=== PATIENT | female | born 1945 | race Caucasian/White ===

== ENCOUNTER 2017-01-23 19:43 | Inpatient (IN) | payer MEDICARE, OTHER ==
[~2017-01-23] VITALS: Ht 167.6 cm; Wt 49.6 kg
[2017-01-23] MEDS: ADVAIR DISKUS 500/50 INH PWD INH SCH (00:17)
[~2017-01-23 19:43] MED LIST: ADV500INH INH; ALBU17IN INH; ATELTAB PO; AVEL1TAB PO; CALC600T10 PO; CALCIUM CITRATE PO; CHOL4PKT PO; CYAN1000VL IM; DETR4CAP10; DETR4CAP10 PO; DRIS50002 PO; DUONSOL INH; FEMH0.5T PO; FORT600S SC; IPRASOL4 INH; LEVO500T PO; MEDR4PAK PO; MULTTAB4; PROA1AER; PROA1AER INH; QUES4POW PO; VITA-130 PO; VITA10006 PO; VITACAP31 PO; VITAMIN B12 INJ; VITMTA PO; ZINC50TA22 PO; ZOLP12.515; ZOLP12.515 PO; [UNRECOGNIZED DRUG - CODE]; [UNRECOGNIZED DRUG - CODE] PO
[2017-01-23] MEDS ORDERED: IPRATROPIUM 0.5MG/ALBUTEROL 2.5MG INH SOL UD 3ML (DUONEB)(J7620) As Ordered ONE (20:00)
[2017-01-23] MEDS ORDERED: MAG SULF 1GM/100ML (MAG RUN) 1 GM in APPROPRIATE DILUENT 1 EA IV ONE (20:15)
[2017-01-23 20:22] LABS: BASO % 0.4 % (0.0-1.0); EOS # 0.2 K/mm3 (0.0-0.50); EOS % 1.5 % (0.0-3.0); LARGE UNSTAINED CELL # 0.2 K/mm3 (0.0-0.4); LYMPH # 0.8 K/mm3 (1.5-4.5); MEAN CORPUSCULAR HEMOGLOBIN 32.1 pg (27.0-33.0); MEAN CORPUSCULAR HGB CONC 32.9 g/dl (32.0-36.5); MEAN CORPUSCULAR VOLUME 97.7 fl (80.0-96.0); MONO # 0.4 K/mm3 (0.0-0.8); MONO % 3.9 % (0.0-5.0); NEUTROPHILS % 87.2 % (36.0-66.0); PLATELET COUNT, AUTOMATED 151 k/mm3 (150-450); RED CELL DISTRIBUTION WIDTH 11.8 % (11.5-14.5); WHITE BLOOD COUNT 11.4 K/mm3 (4.0-10.0)
[2017-01-23 20:23] LABS: ABG BASE EXCESS 6.3 (-2.0-2.0); ABG HCO3 33.5 MEQ/L (22.0-26.0); ABG PARTIAL PRESSURE CO2 59.5 mmHg (35.0-45.0); ABG PARTIAL PRESSURE O2 70.7 mmHg (75.0-100.0); ABG STANDARD HCO3 30.1 MEQ/L (22.0-26.0); ABG TOTAL CO2 35.4 MEQ/L (23.0-31.0); ABG pH (ARTERIAL) 7.369 UNITS (7.350-7.450)
[2017-01-23] MEDS: IPRATROPIUM 0.5MG/ALBUTEROL 2.5MG INH SOL UD 3ML (DUONEB)(J7620) NEB PRN ×3 (20:33→20:44)
[2017-01-23] MEDS ORDERED: LevoFLOXacin IV 750 MG in APPROPRIATE DILUENT 1 EA IV ONE (20:45)
[2017-01-23 20:47] LABS: ANION GAP 5 MEQ/L (8-16); BLOOD UREA NITROGEN 12 MG/DL (7-18); CALCIUM LEVEL 8.6 MG/DL (8.8-10.2); CARBON DIOXIDE LEVEL 34 MEQ/L (21-32); CHLORIDE LEVEL 97 MEQ/L (98-107); CREATININE FOR GFR 0.65 MG/DL (0.55-1.02); GLOMERULAR FILTRATION RATE > 60.0 (>39); GLUCOSE, FASTING 130 MG/DL (83-110); POTASSIUM SERUM 3.6 MEQ/L (3.5-5.1); SODIUM LEVEL 136 MEQ/L (136-145)
[2017-01-23] MEDS ORDERED: TYLE325T5 PO (21:53)
[2017-01-23] MEDS ORDERED: ONDANSETRON 4MG/2ML VIAL (J2405) IV PRN (22:00)
[2017-01-23] MEDS ORDERED: ALBUTEROL SULFATE 2.5 MG/0.5 ML INH NEB SOLN INH PRN (22:00)
--- NOTE | 2017-01-23 23:06 | HPE ---
DATE OF ADMISSION: 01/23/2017 CHIEF COMPLAINT: Shortness of breath. PRIMARY CARE PHYSICIAN: Dr. Keagan Ramos. SHOTBLAST EQUIPMENT OPERATOR: Dr. Patel COMPUTER FIELD TECHNICIAN: Dr. Peter Neal ENTRY LEVEL SALES REPRESENTATIVE: Dr. Volodymyr Rodriguez HISTORY OF PRESENT ILLNESS: This is a 71-year-old who was recently admitted to [facility] from January 07 to January 11. She was discharged on a steroid taper that apparently ended around January 17. Since January 17, she has had increasing shortness of breath. She felt as though she could not catch her breath. She had dyspnea with exertion. She could only walk 20-25 feet without getting short of breath and having to stop. Has not had any sputum production. Has had no sick contacts. Has had her flu shot. Has been taking her controller medications as prescribed. She describes no orthopnea, no paroxysmal nocturnal dyspnea, no fever, no chills. She did followup with Dr. Keagan Ramos on January 18 and is due to see Dr. Patel this Saturday, on January 25. She presented to the emergency department tonight in extremis. Refused treatment with steroids. Was given heliox with nebulizer treatments, empiric antibiotics, and magnesium with improvement and has consented to admission. PAST MEDICAL HISTORY: Notable for: 1. Takotsubo cardiomyopathy September 2013 with a cardiac catheterization by Dr. Rodriguez. 2. Chronic obstructive pulmonary disease (COPD). 3. Crohn's disease status post surgical resection. 4. Osteoporosis. 5. Nephrolithiasis. 6. Chronic left lower lobe pulmonary nodule and right upper lobe pulmonary nodule. PAST SURGICAL HISTORY: Notable for: 1. Bowel resection times two. 2. Kidney stone extraction. 3. Coronary angiogram. SOCIAL HISTORY: She quit smoking in 2013. Does not use alcohol. 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 Lives in [place]. REVIEW OF SYSTEMS: Notable for no headache, no visual changes, no runny nose or sore throat. No abdominal pain. No change in bowel or bladder habits. Otherwise unremarkable. MEDICATIONS AT HOME: Listed as: - Tylenol as needed - Advair twice daily - DuoNeb four times daily - albuterol as needed - vitamin B12 injection - vitamin D supplement weekly - Ambien 12.5 mg at bedtime - Atelvia 35 mg as directed - calcium supplement - vitamin C supplement - Questran 4 gram before food - Femhrt low dose 0.5/2.5 mg one tablet daily - multivitamin tablet daily - Advair 500/50 inhaled twice a day - Detrol-LA 4 mg by mouth daily ALLERGIES: She has listed allergies to CODEINE, HYDROCODONE, OMEPRAZOLE, PENICILLINS, a listed allergy to PREDNISONE, which is a desire not to take prednisone, and SULFA antibiotics. PHYSICAL EXAMINATION: Temperature 97.4, pulse most recently is 102 with a blood pressure of 139/72. She is awake, appropriately interactive, pleasantly conversant and engaging. Sinuses are nontender. Pupils are equal, round, and reactive. Anicteric. Mucous membranes are moist. She is wearing dentures. Neck is supple. No cervical or supraclavicular adenopathy. No accessory muscle use. She is speaking in complete sentences. Inspiratory to expiratory (I-to-E) ratio is 1:5. Heart is in a regular rate and rhythm, borderline tachycardic. Radial pulses are 1+ on the right, 2+ on the left. Abdomen is soft, nontender. There is trace bilateral lower extremity edema. She is moving all four extremities. Facies are symmetrical. Cranial nerves II-XII are grossly intact. White cell count 11.4, hemoglobin 13.9, platelets of 151. BUN 12, creatinine 0.65. BNP is 129. Blood gas: 7.36, 59, 70, 33. EKG shows sinus tachycardia with frequent supraventricular premature complexes. ASSESSMENT: This is a 71-year-old with acute hypoxic, hypercapnic respiratory failure. Patient will require 2-midnight hospital stay. PLAN: 1. Respiratory. Patient has increasing hypoxia and hypoxic respiratory failure. Is getting supplemental oxygen. Has taken nebulizers. Has refused steroids quite strongly. Has received Levaquin one dose. She is not currently making sputum. Will be placed on progressive care unit (PCU). We have discussed advance directives. The patient is vacillating about the level of care she would like to receive. She is quite specific about steroids but also suggests that she may refuse antibiotics and ventilator should that become available. We did discuss a medical order for life-sustaining treatment (MOLST) form, and I have given her one to review, although she seems not to be set in her current decisions regarding advance directives. 2. Patient has a history of Takotsubo cardiomyopathy. She did have an echocardiogram done during her last visit, which shows normal right-sided heart chambers, left ventricular diastolic dysfunction, and a small pericardial effusion. 3. Patient has history of Crohn's disease without acute symptoms. Continuing Questran as ordered. 4. Patient has protein calorie malnutrition, most likely related to a combination of her Crohn's disease and advanced pulmonary illness. 5. Deep vein thrombosis (DVT) prophylaxis is in the form of low-dose Lovenox based on her body mass index. 6. Patient has history of B12 deficiency. 7. Patient has vitamin D deficiency. 8. Patient has history of insomnia. I am certainly not giving her Ambien while she has respiratory compromise. 9. Patient has overactive bladder, continuing her Detrol. 10. Patient will be sent out to Dr. Cassidy in the morning.
[2017-01-24 03:55] VITALS: BP 125/58
[2017-01-24] MEDS: CHOLESTYRAMINE 4 GM PWD PKT PO SCH ×3 (07:30→17:30)
[2017-01-24 08:00] VITALS: BP 112/55
[2017-01-24] MEDS: IPRATROPIUM 0.5MG/ALBUTEROL 2.5MG INH SOL UD 3ML (DUONEB)(J7620) NEB SCH ×4 (08:00→19:41)
[2017-01-24] MEDS: ADVAIR DISKUS 500/50 INH PWD INH SCH ×2 (08:19→19:46)
[2017-01-24] MEDS: ASCORBIC ACID 500 MG TAB PO SCH (09:00)
[2017-01-24] MEDS: TOLTERODINE TARTRATE 2 MG LA CAP (DETROL LA) PO SCH (09:00)
[2017-01-24] MEDS: ENOXAPARIN 30 MG/0.3 ML SYR (J1650) SC SCH (09:00)
--- NOTE | 2017-01-24 09:01 | REP ---
CHEST, PORTABLE: Single portable view of the chest is performed and compared to a prior study of 01/07/2017. Once again, there is cardiomegaly noted. Bilateral fibrotic changes appear stable with no acute infiltrate. Mediastinal silhouette is unchanged with mild calcification of the thoracic aorta. IMPRESSION: Mild cardiomegaly. Stable chronic fibrotic changes without evidence of acute infiltrate. Signed by Johnny Garcia MD 01/24/2017 04:47 P
--- NOTE | 2017-01-24 09:26 | ECGEPIP ---
Stationary ECG Study [facility] - ED Test Date: 2017-01-23 Pat Name: KENA URBINA Department: Room: [place] [address] Gender: F Board Finisher: melanie : 1945 Requested By: WOLFGANG Mccurdy Order Number: [id number] Reading MD: Lavonne Parra Measurements Intervals [place] Rate: 120 P: 76 WA: 145 QRS: 82 QRSD: 89 T: 69 QT: 326 QTc: 462 Interpretive Statements SINUS TACHYCARDIA WITH FREQUENT SUPRAVENTRICULAR PREMATURE COMPLEXES POSSIBLE RIGHT VENTRICULAR CONDUCTION DELAY ABNORMAL RHYTHM ECG INCREASED RATE 01/08/17 Electronically Signed On 01-24-2017 9:26:10 EDT by Lavonne Parra
[2017-01-24] MEDS: BUDESONIDE 0.5 MG/2 ML INHALATION SUSPENSION INH SCH ×3 (11:05→23:38)
[2017-01-24 12:00] VITALS: BP 109/54
[2017-01-24] MEDS: AZITHROMYCIN 250 MG TAB PO SCH (12:37)
[2017-01-24] MEDS: MULTIVITAMINS/MINERALS THERAP 1 TAB PO SCH (12:37)
[2017-01-24 16:00] VITALS: BP 113/56
[2017-01-24] MEDS: ACETAMINOPHEN TAB 650MG DOSE (2X325MG) PO PRN (19:48)
[2017-01-24 20:00] VITALS: BP 120/56
--- NOTE | 2017-01-24 20:26 | IPN ---
DATE: 01/24/2017 A 71-year-old female seen at bedside. Noted less shortness of breath, wheeze, nonproductive cough and dyspnea on exertion. However, she has refused Solu-Medrol and has been noncompliant with the oxygen supplementation through the morning hours according to the nurse. OBJECTIVE: Temperature is 98.4, pulse 97, respiratory is 20, blood pressure 112/55, SPO2 is 95% on two liters. GENERAL: The patient appears to be in no acute distress. She is slightly agitated. HEENT: Unremarkable. LUNGS: Diminished bibasilar breath sounds, diminished breath sounds throughout the remainder of the lung alfred with expiratory wheeze noted and prolonged expiratory phase. She is able to speak in four or five word sentences. However, sternocleidomastoid retraction and retraction noted between the first couple of upper rib spaces. HEART: Regular rate and rhythm. ABDOMEN: Soft. EXTREMITIES: No edema. No calf tenderness. LABORATORY DATA: She has refused to have drawn this morning. ASSESSMENT AND PLAN: 1. Acute hypoxic respiratory failure. Noted to have what appears to be advanced chronic obstructive pulmonary disease (COPD) and difficult to control. I did have a lengthy discussion with her as well as with her manager bilingual. She is resistant to Solu-Medrol/prednisone at this point. I did consult Dr. James who will see her at bedside and a tentative plan for now would be to try dual inhaled steroid therapy with Advair and budesonide nebulizer treatments. Continue with DuoNebs as well. We will hold on prednisone for the time being as a reserve. We may need to fall back to this and she is aware. She has refused antibiotics for the time being. 2. History of takotsubo cardiomyopathy. No signs of volume overload. 3. History of Crohn's disease. No acute symptoms. Continue Questran. 4. Protein-calorie malnutrition. Likely cachexia related to lung disease and underlying Crohn's. 5. History of B12 deficiency. We will continue supplementation. 6. Vitamin D deficiency. Continue supplementation. 7. History of insomnia. We are holding the Ambien due to risk of respiratory compromise. 8. History of overactive bladder. Continue on Detrol. 9. Deep vein thrombosis (DVT) prophylaxis with low-dose Lovenox based on her body mass index. DISPOSITION: Appreciate Dr. James's input to see how we could modify her treatment. She may likely need long-term steroids and we will need to see if she is qualified for home oxygen.
[2017-01-24 20:55] VITALS: BP 114/58
[2017-01-25 06:00] VITALS: BP 100/50
[2017-01-25] MEDS: ADVAIR DISKUS 500/50 INH PWD INH SCH ×2 (07:13→19:18)
[2017-01-25] MEDS: BUDESONIDE 0.5 MG/2 ML INHALATION SUSPENSION INH SCH ×2 (07:13→19:16)
[2017-01-25 07:15] LABS: ANION GAP 7 MEQ/L (8-16); BLOOD UREA NITROGEN 9 MG/DL (7-18); CALCIUM LEVEL 8.2 MG/DL (8.8-10.2); CARBON DIOXIDE LEVEL 33 MEQ/L (21-32); CHLORIDE LEVEL 98 MEQ/L (98-107); CREATININE FOR GFR 0.61 MG/DL (0.55-1.02); GLOMERULAR FILTRATION RATE > 60.0 (>39); GLUCOSE, FASTING 91 MG/DL (83-110); POTASSIUM SERUM 3.9 MEQ/L (3.5-5.1); SODIUM LEVEL 138 MEQ/L (136-145)
[2017-01-25] MEDS: IPRATROPIUM 0.5MG/ALBUTEROL 2.5MG INH SOL UD 3ML (DUONEB)(J7620) NEB SCH ×4 (07:16→19:18)
[2017-01-25 07:26] LABS: MEAN CORPUSCULAR HEMOGLOBIN 32.9 pg (27.0-33.0); MEAN CORPUSCULAR HGB CONC 33.7 g/dl (32.0-36.5); MEAN CORPUSCULAR VOLUME 97.7 fl (80.0-96.0); RED CELL DISTRIBUTION WIDTH 11.7 % (11.5-14.5); WHITE BLOOD COUNT 6.5 K/mm3 (4.0-10.0)
[2017-01-25] MEDS: MULTIVITAMINS/MINERALS THERAP 1 TAB PO SCH (07:54)
[2017-01-25] MEDS: AZITHROMYCIN 250 MG TAB PO SCH (07:54)
[2017-01-25] MEDS: TOLTERODINE TARTRATE 2 MG LA CAP (DETROL LA) PO SCH (07:54)
[2017-01-25] MEDS: ACETAMINOPHEN TAB 650MG DOSE (2X325MG) PO PRN (07:54)
[2017-01-25] MEDS: CHOLESTYRAMINE 4 GM PWD PKT PO SCH ×3 (07:54→17:27)
[2017-01-25] MEDS: ASCORBIC ACID 500 MG TAB PO SCH (07:54)
[2017-01-25] MEDS: ENOXAPARIN 30 MG/0.3 ML SYR (J1650) SC SCH (07:57)
[2017-01-25 10:55] VITALS: BP 114/61
[2017-01-25 14:00] VITALS: BP 104/56
--- NOTE | 2017-01-25 14:35 | IPN ---
DATE: 01/25/2017 A 71-year-old female seen at bedside. No overnight issues. She is resting comfortably. We are going to titrate her oxygen. OBJECTIVE: Temperature 99.8, pulse 84, respiratory rate is 20, blood pressure 100/50, SpO2 is 93% on 2 liters. GENERAL: The patient appears to be in no acute distress. Is alert and oriented. HEENT: Head is atraumatic, normocephalic. Eyes: Pupils equal, reactive to light and accommodation. Throat clear. LUNGS: Diminished bibasilar breath sounds, occasional wheeze but sounds much better than yesterday. HEART: Regular rate and rhythm. ABDOMEN: Soft. EXTREMITIES: No edema. No calf tenderness. LABORATORY DATA: White count is 6.5, hemoglobin 12.1, platelets 142,000. Sodium 138, potassium 3.9, chloride 98, bicarbonate 33, anion gap 7, BUN is 9, creatinine 0.61, glucose is 91. ASSESSMENT/PLAN: 1. Acute hypoxic respiratory failure. Appreciate Dr. James's input. She has refused Solu-Medrol as well as antibiotics. Will continue on the Advair and budesonide nebulizer treatments. There is a possibility she may need to be considered for low dose daily prednisone as well as home oxygen supplementation. At any rate, we will see how she does on day-to-day basis. 2. History of Takotsubo cardiomyopathy. No signs of volume overload. 3. History of Crohn's disease. She does appear to be stable. She does have some loose stool. Clostridium (C) difficile is pending. Blood cultures were negative. She may use the Questran. 4. Protein calorie malnutrition. Likely secondary to underlying Crohn's. 5. B12 deficiency. Continue supplementation. 6. Vitamin D deficiency. Continue supplementation. 7. History of insomnia. We are holding her Ambien due to risk of respiratory compromise. 8. Overactive bladder. Continue with Detrol. 9. Deep venous thrombosis (DVT) prophylaxis. Low-dose Lovenox based on low body mass index. DISPOSITION: Again, appreciate Dr. James's recommendations. We will see how she does over the next 24-48 hours and start planning home discharge.
[2017-01-25 22:00] VITALS: BP 122/57
[2017-01-26] MEDS: ACETAMINOPHEN TAB 650MG DOSE (2X325MG) PO PRN ×3 (02:59→22:40)
[2017-01-26 06:00] VITALS: BP 109/52
[2017-01-26] MEDS: CHOLESTYRAMINE 4 GM PWD PKT PO SCH ×3 (07:30→17:03)
[2017-01-26] MEDS: ADVAIR DISKUS 500/50 INH PWD INH SCH ×2 (07:43→19:29)
[2017-01-26] MEDS: BUDESONIDE 0.5 MG/2 ML INHALATION SUSPENSION INH SCH ×2 (07:43→19:29)
[2017-01-26] MEDS: IPRATROPIUM 0.5MG/ALBUTEROL 2.5MG INH SOL UD 3ML (DUONEB)(J7620) NEB SCH ×4 (07:45→19:29)
[2017-01-26] MEDS: ENOXAPARIN 30 MG/0.3 ML SYR (J1650) SC SCH (08:41)
[2017-01-26] MEDS: ASCORBIC ACID 500 MG TAB PO SCH (08:42)
[2017-01-26] MEDS: TOLTERODINE TARTRATE 2 MG LA CAP (DETROL LA) PO SCH (08:42)
[2017-01-26] MEDS: MULTIVITAMINS/MINERALS THERAP 1 TAB PO SCH (08:42)
[2017-01-26] MEDS: AZITHROMYCIN 250 MG TAB PO SCH (08:42)
[2017-01-26] MEDS: FEMHRT PO SCH (10:02)
[2017-01-26] MEDS: LACTOBACILLUS ACIDOPHILUS CAP (BACID) PO SCH ×3 (10:47→20:19)
[2017-01-26 13:41] LABS: MEAN CORPUSCULAR HEMOGLOBIN 32.1 pg (27.0-33.0); MEAN CORPUSCULAR HGB CONC 32.7 g/dl (32.0-36.5); MEAN CORPUSCULAR VOLUME 98.1 fl (80.0-96.0); RED CELL DISTRIBUTION WIDTH 11.7 % (11.5-14.5); WHITE BLOOD COUNT 6.2 K/mm3 (4.0-10.0)
[2017-01-26 13:54] LABS: ANION GAP 7 MEQ/L (8-16); BLOOD UREA NITROGEN 10 MG/DL (7-18); CALCIUM LEVEL 7.8 MG/DL (8.8-10.2); CARBON DIOXIDE LEVEL 33 MEQ/L (21-32); CHLORIDE LEVEL 98 MEQ/L (98-107); CREATININE FOR GFR 0.61 MG/DL (0.55-1.02); GLOMERULAR FILTRATION RATE > 60.0 (>39); GLUCOSE, FASTING 116 MG/DL (83-110); MAGNESIUM LEVEL 2.1 MG/DL (1.8-2.4); POTASSIUM SERUM 3.7 MEQ/L (3.5-5.1); SODIUM LEVEL 138 MEQ/L (136-145)
[2017-01-26 14:00] VITALS: BP 136/63
--- NOTE | 2017-01-26 15:09 | REP ---
Chest two views history cough comparison 01/23/2017 the lungs are hyperinflated. Diffuse increase in interstitial markings is present in the lungs consistent with chronic interstitial fibrosis. The cardiac silhouette is enlarged. The pulmonary vasculature is normal in appearance. The bony structure is intact. Impression 1. Chronic interstitial fibrosis. Mild cardiomegaly. Signed by Supa Figueroa MD 01/26/2017 10:51 A
--- NOTE | 2017-01-26 15:09 | IPN ---
DATE: 01/26/2017 71-year-old female. She does feel that her breathing is a little worse today with more chest congestion. However, she is able to tolerate 1 liter per minute nasal cannula. No fevers, chills or rigors noted overnight. She is tolerating her meals. No nausea or vomiting. OBJECTIVE: Temperature is 98.7, pulse 91 and regular, respiratory rate is 20, blood pressure (BP) 109/52, SPO2 is 91% on 1 liter. General: The patient appears to be in no acute distress. She is alert, pleasant. HEENT: Unremarkable. Lungs: Diminished bibasilar breath sounds, distant. Wheeze with a few crackles. She continues with an increased AP diameter and prolonged expiratory phase. Heart: Regular rate and rhythm. Abdomen: Soft. Extremities: No edema. No calf tenderness. LABORATORY DATA: White count 6.5, hemoglobin 12.1, platelets 142. Sodium 138, potassium 3.9, chloride 98, bicarb 33, anion gap 7, BUN is 9, creatinine 0.61, glucose is 91. Chest x-ray PA and lateral views with no acute cardiopulmonary processes noted and I do not see any major change compared to her chest x-ray on 01/23/2017. ASSESSMENT/PLAN: 1. Old acute hypoxic respiratory failure. Appreciate Dr. James's input. She has refused Solu-Medrol and antibiotics. She has continued on dual steroid inhaler with Advair and budesonide nebulizer treatments. We have been able to slightly decrease her oxygen requirement and will see how she does over the next 24 hours. Her chest x-ray is unchanged to account for her symptomatology. I do suspect that this is most likely related to her end-stage lung disease. 2. History of Takotsubo cardiomyopathy. No signs of volume overload. 3. History of Crohn's disease with loose stool. No blood in her stool. Clostridium difficile screen is negative. Will increase her Questran to three times a day and start her on Bacid 1 tablet three times a day as well. Blood cultures remain negative. 4. Protein calorie malnutrition likely secondary to poor absorption of Crohn's. 5. B12 deficiency. Continue supplementation. 6. Vitamin D deficiency. Continue supplementation. 7. History of insomnia. Holding her Ambien due to respiratory compromise risk. 8. Overactive bladder. Continue with Detrol 9. Deep vein thrombosis (DVT) prophylaxis. Continue with low-dose Lovenox based on body mass index. DISPOSITION: Again, appreciate Dr. James's input. Will see how she does over the next 24-48 hours and perhaps get her discharged by Saturday. She may need home oxygen and close followup with pulmonology.
[2017-01-26] MEDS ORDERED: IBUPROFEN 400 MG TAB PO PRN (15:15)
[2017-01-26] MEDS ORDERED: CHOLESTYRAMINE 4 GM PWD PKT PO SCH (16:00)
[2017-01-26 22:00] VITALS: BP 131/59
[2017-01-27 06:00] VITALS: BP 119/57
[2017-01-27 06:02] LABS: MEAN CORPUSCULAR HEMOGLOBIN 31.6 pg (27.0-33.0); MEAN CORPUSCULAR HGB CONC 32.4 g/dl (32.0-36.5); MEAN CORPUSCULAR VOLUME 97.5 fl (80.0-96.0); RED CELL DISTRIBUTION WIDTH 11.9 % (11.5-14.5); WHITE BLOOD COUNT 5.8 K/mm3 (4.0-10.0)
[2017-01-27 06:21] LABS: ANION GAP 6 MEQ/L (8-16); BLOOD UREA NITROGEN 11 MG/DL (7-18); CALCIUM LEVEL 8.3 MG/DL (8.8-10.2); CARBON DIOXIDE LEVEL 32 MEQ/L (21-32); CHLORIDE LEVEL 100 MEQ/L (98-107); CREATININE FOR GFR 0.49 MG/DL (0.55-1.02); GLOMERULAR FILTRATION RATE > 60.0 (>39); GLUCOSE, FASTING 92 MG/DL (83-110); MAGNESIUM LEVEL 1.9 MG/DL (1.8-2.4); POTASSIUM SERUM 3.9 MEQ/L (3.5-5.1); SODIUM LEVEL 138 MEQ/L (136-145)
[2017-01-27] MEDS: ACETAMINOPHEN TAB 650MG DOSE (2X325MG) PO PRN ×2 (06:22→21:26)
[2017-01-27] MEDS: BUDESONIDE 0.5 MG/2 ML INHALATION SUSPENSION INH SCH ×2 (07:28→20:02)
[2017-01-27] MEDS: IPRATROPIUM 0.5MG/ALBUTEROL 2.5MG INH SOL UD 3ML (DUONEB)(J7620) NEB SCH ×5 (07:28→20:02)
[2017-01-27] MEDS: CHOLESTYRAMINE 4 GM PWD PKT PO SCH ×3 (07:30→16:30)
[2017-01-27] MEDS: LACTOBACILLUS ACIDOPHILUS CAP (BACID) PO SCH ×3 (08:33→21:26)
[2017-01-27] MEDS: TOLTERODINE TARTRATE 2 MG LA CAP (DETROL LA) PO SCH (08:33)
[2017-01-27] MEDS: AZITHROMYCIN 250 MG TAB PO SCH (08:33)
[2017-01-27] MEDS: MULTIVITAMINS/MINERALS THERAP 1 TAB PO SCH (08:33)
[2017-01-27] MEDS: ENOXAPARIN 30 MG/0.3 ML SYR (J1650) SC SCH (08:34)
[2017-01-27] MEDS: ASCORBIC ACID 500 MG TAB PO SCH (08:34)
[2017-01-27] MEDS: FEMHRT PO SCH (08:34)
[2017-01-27] MEDS: ADVAIR DISKUS 500/50 INH PWD INH SCH ×2 (11:56→20:02)
--- NOTE | 2017-01-27 13:40 | IPNPDOC ---
Date Seen The patient was seen on 01/27/17. Progress Note Hospitalist Progress Note Subjective: The patient reports that she can tell a definite improvement from when she arrived, she states that she still does not feel well. She reports a lot of fatigue, as well as feeling overall poorly when she gets fevers and chills. She reports that her diarrhea has improved since arrival, and does not have any blood in it. Objective: Physical Exam: Vitals: Vital Sign - Last 24 Hours 01/26/17 01/26/17 01/26/17 01/26/17 14:00 19:20 21:00 22:00 Temp 102.5 98.9 Pulse 115 100 Resp 18 20 B/P (MAP) 136/63 (87) 131/59 (83) Pulse Ox 92 92 O2 Delivery Nasal Cannula Nasal Cannula Nasal Cannula Nasal Cannula O2 Flow Rate 1.0 1.0 1.0 1.0 01/26/17 01/27/17 01/27/17 01/27/17 22:30 00:00 00:34 02:00 Temp 101.5 100.3 100.0 98.5 01/27/17 01/27/17 01/27/17 01/27/17 02:31 06:00 07:33 09:40 Temp 99.8 100.8 Pulse 108 100 Resp 20 B/P (MAP) 119/57 (77) Pulse Ox 90 O2 Delivery Nasal Cannula Nasal Cannula O2 Flow Rate 2.0 1.0 General: Awake, alert, no acute distress HEENT: Normocephalic, atraumatic, extraocular movements intact CV: Regular rate and rhythm, no murmurs rubs or gallops Lungs: Mostly clear to auscultation with mild scattered crackle Abd: Soft, nontender, nondistended Extremities: No edema Neuro: Alert and oriented 3, normal speech Psych: And normal mood and affect Labs and Imaging: Laboratory Tests 01/27/17 05:36 Red Blood Count 3.73 L, Mean Corpuscular Volume 97.5 H, Mean Corpuscular Hemoglobin 31.6, Mean Corpuscular Hemoglobin Concent 32.4, Red Cell Distribution Width 11.9, Calcium Level 8.3 L Assessment and Plan: 71-year-old female with history of Takotsubo cardiomyopathy in 2013, COPD, Crohn 's disease status post resection, chronic left lower lobe nodule and chronic right upper lobe nodule who presented to the emergency department with shortness of breath. She was admitted with a COPD exacerbation, but has declined systemic steroid treatment. Her respiratory status has been improving on dual nebulized steroids, that she has had several fevers, particularly 3 in the last 24 hours. 1. COPD exacerbation: The patient's oxygen requirements have currently decreased to 1 L. The patient does not use any oxygen at home. We will continue home Advair, as well as scheduled DuoNeb's as needed albuterol. We will also continue Pulmicort nebs, and she will likely need to be discharged home on this. Continue oral azithromycin. As noted above, the patient has declined systemic steroid therapy. Given her compromised respiratory status, we have been holding her home Ambien. We appreciate the input of pulmonology. 2. Fever: There is no clear etiology at this point. White count was mildly elevated upon admission, but has been normal for several days now. Prior chest x -rays have not revealed any pneumonia, and a respiratory virus panel, C. difficile, and blood cultures were negative upon admission. UA from yesterday shows likely contamination, as there is 1+ bacteria and 9 WBCs, but no leuk esterase and no nitrite. We will recheck blood and urine cultures, as well as recheck a chest x-ray. Given that the patient reports that her diarrhea has improved and is not bloody, I doubt that this is secondary to any issues with her Crohn's. At this time, we will hold off on any antibiotics, as we do not have a clear source, and as the patient states that she has terrible rebound exacerbations of her Crohn's whenever she is on heavy antibiotics. The patient states that if we feel antibiotics are truly warranted, she will not decline them, but she would like to be cautious about their use. If a clear source of the fevers is identified, or if the patient continues to have fevers, then we will start antibiotics at that time. I have placed an order for the nursing staff to call the physician with any fevers greater than or equal to 100.4. 3. Crohn's disease: Per the patient, the diarrhea is starting to firm up, and she is not having any blood. Continue Bacid and cholestyramine. 4. Protein calorie malnutrition: Likely secondary to both poor absorption from her Crohn's disease, as well as advanced pulmonary illness. Stable at this time. DVT prophylaxis: Lovenox Dispo: pending resolution in her fevers, and workup for fevers, as well as being able to get off oxygen VS, I&O[facility] Sign[facility]/I&O Vital Signs Date Time Temp Pulse Resp B/P (MAP) Pulse Ox O2 Delivery O2 Flow Rate FiO2 01/27/17 09:40 Nasal Cannula 1.0 01/27/17 07:33 100 01/27/17 06:00 100.8 20 119/57 (77) 90 01/23/17 20:05 50 I&O- Last 24 Hours up to 6 AM 01/27/17 06:00 Intake Total 2100 ml Output Total 1450 ml Balance 650 ml Laboratory Data 24H LABS Laboratory Tests 2 01/26/17 22:27: Urine Appearance HAZY, Urine Color YELLOW, Urine pH 5.0, Urine Specific [place] 1.013, Urine Protein NEGATIVE, Urine Glucose (UA) NEGATIVE, Urine Ketones NEGATIVE, Urine Urobilinogen 0.2, Urine Bilirubin NEGATIVE, Urine Leukocyte Esterase NEGATIVE, Urine Blood NEGATIVE, Urine Nitrite NEGATIVE, Urine WBC (Auto ) 9H, Urine RBC (Auto) 22H, Urine Hyaline Casts (Auto) 0, Urine Bacteria (Auto) 1+H, Urine Squamous Epithelial Cells 4, Urine Amorphous Sediment SMALLH, Urine Mucus (Auto) SMALL, Urine Sperm (Auto) 01/27/17 05:36: Anion Gap 6L, Glomerular Filtration Rate > 60.0, Blood Urea Nitrogen 11, Creatinine 0.49L, Sodium Level 138, Potassium Level 3.9, Chloride Level 100, Carbon Dioxide Level 32, Calcium Level 8.3L, Magnesium Level 1.9 01/27/17 13:32: CBC/BMP Laboratory Tests 01/27/17 05:36 Red Blood Count 3.73 L, Mean Corpuscular Volume 97.5 H, Mean Corpuscular Hemoglobin 31.6, Mean Corpuscular Hemoglobin Concent 32.4, Red Cell Distribution Width 11.9, Calcium Level 8.3 L Microbiology Microbiology 01/27/17 Blood Culture, Received Pending 01/27/17 Blood Culture, Received Pending 01/23/17 Blood Culture - Preliminary, Resulted No Growth after 72 hours. All specime... 01/23/17 Blood Culture - Preliminary, Resulted No Growth after 72 hours. All specime... 01/25/17 Clostridium difficile (PCR) - Final, Complete 01/23/17 Respiratory Virus Panel (PCR) ([facility]) - Final, Complete 01/27/17 Urine Culture, Received Pending ALISON AUSTIN Jan 27, 2017 13:40
[2017-01-27] MEDS: NYSTATIN 500,000 U/5 ML SUSP UDC SS SCH ×3 (13:53→21:26)
[2017-01-27 14:00] VITALS: BP 122/58
[2017-01-27 20:00] VITALS: BP 147/60
[2017-01-27 22:00] VITALS: BP 147/65
[2017-01-28 02:00] VITALS: BP 104/51
--- NOTE | 2017-01-28 05:43 | REP ---
CHEST, TWO VIEWS: HISTORY: Fever. COMPARISON: 01/26/2017. The lungs are hyperinflated. A diffuse increase in interstitial markings is present in the lungs consistent with chronic interstitial fibrosis. Bullae are present in the upper lobes. The cardiac silhouette is enlarged. The pulmonary vasculature is normal in appearance. The bony structure is intact. IMPRESSION: 1. Chronic interstitial fibrosis. 2. Cardiomegaly. Signed by Supa Figueroa MD 01/28/2017 08:15 A
[2017-01-28 06:00] VITALS: BP 119/57
[2017-01-28] MEDS: IPRATROPIUM 0.5MG/ALBUTEROL 2.5MG INH SOL UD 3ML (DUONEB)(J7620) NEB SCH ×4 (07:03→20:00)
[2017-01-28] MEDS: BUDESONIDE 0.5 MG/2 ML INHALATION SUSPENSION INH SCH ×2 (07:03→20:01)
[2017-01-28] MEDS: ADVAIR DISKUS 500/50 INH PWD INH SCH ×2 (07:03→20:02)
[2017-01-28] MEDS: ENOXAPARIN 30 MG/0.3 ML SYR (J1650) SC SCH (07:50)
[2017-01-28] MEDS: CHOLESTYRAMINE 4 GM PWD PKT PO SCH ×3 (07:51→16:33)
[2017-01-28] MEDS: LACTOBACILLUS ACIDOPHILUS CAP (BACID) PO SCH ×3 (08:02→20:43)
[2017-01-28] MEDS: TOLTERODINE TARTRATE 2 MG LA CAP (DETROL LA) PO SCH (08:02)
[2017-01-28] MEDS: ASCORBIC ACID 500 MG TAB PO SCH (08:03)
[2017-01-28] MEDS: MULTIVITAMINS/MINERALS THERAP 1 TAB PO SCH (08:03)
[2017-01-28] MEDS: AZITHROMYCIN 250 MG TAB PO SCH (08:03)
[2017-01-28] MEDS: NYSTATIN 500,000 U/5 ML SUSP UDC SS SCH ×5 (08:04→20:43)
[2017-01-28] MEDS: FEMHRT PO SCH (08:04)
[2017-01-28 08:21] LABS: MEAN CORPUSCULAR HEMOGLOBIN 31.1 pg (27.0-33.0); MEAN CORPUSCULAR HGB CONC 32.2 g/dl (32.0-36.5); MEAN CORPUSCULAR VOLUME 96.8 fl (80.0-96.0); RED CELL DISTRIBUTION WIDTH 11.9 % (11.5-14.5); WHITE BLOOD COUNT 6.2 K/mm3 (4.0-10.0)
[2017-01-28 08:38] LABS: ALBUMIN 2.4 GM/DL (3.2-5.2); ALKALINE PHOSPHATASE 50 U/L (45-117); ALT/SGPT 19 U/L (12-78); ANION GAP 5 MEQ/L (8-16); AST/SGOT 16 U/L (15-37); BILIRUBIN,TOTAL 0.5 MG/DL (0.2-1.0); BLOOD UREA NITROGEN 11 MG/DL (7-18); CALCIUM LEVEL 8.3 MG/DL (8.8-10.2); CARBON DIOXIDE LEVEL 32 MEQ/L (21-32); CHLORIDE LEVEL 100 MEQ/L (98-107); CREATININE FOR GFR 0.55 MG/DL (0.55-1.02); GLOMERULAR FILTRATION RATE > 60.0 (>39); GLUCOSE, FASTING 101 MG/DL (83-110); MAGNESIUM LEVEL 1.9 MG/DL (1.8-2.4); SODIUM LEVEL 137 MEQ/L (136-145); TOTAL PROTEIN 6.4 GM/DL (6.4-8.2)
--- NOTE | 2017-01-28 13:21 | IPNPDOC ---
Date Seen The patient was seen on 01/28/17. Progress Note Hospitalist Progress Note Subjective: The patient states she overall does not feel well; she is very tired and has no appetite. Objective: Physical Exam: Vitals: Vital Sign - Last 24 Hours 01/27/17 01/27/17 01/27/17 01/27/17 14:00 16:00 20:00 20:04 Temp 99.7 102.7 Pulse 100 100 118 Resp 20 18 B/P (MAP) 122/58 (79) 147/60 (89) Pulse Ox 93 90 O2 Delivery Nasal Cannula Nasal Cannula Nasal Cannula O2 Flow Rate 2.0 2.0 1.0 01/27/17 01/27/17 01/27/17 01/28/17 20:30 22:00 23:18 02:00 Temp 101.0 102.3 98.9 Pulse 118 93 Resp 20 24 B/P (MAP) 147/65 (92) 104/51 (68) Pulse Ox 90 93 O2 Delivery Nasal Cannula Nasal Cannula Nasal Cannula O2 Flow Rate 1.0 1.0 1.0 01/28/17 01/28/17 01/28/17 06:00 06:35 10:23 Temp 100.1 Pulse 106 Resp 38 B/P (MAP) 119/57 (77) Pulse Ox 88 O2 Delivery Nasal Cannula Nasal Cannula O2 Flow Rate 2.0 2.0 2.0 General: Awake, alert, no acute distress HEENT: Normocephalic, atraumatic, extraocular movements intact CV: Regular rate and rhythm Lungs: Mostly clear to auscultation with mild scattered crackle Abd: Soft, nontender, nondistended Extremities: No edema Neuro: Alert and oriented 3, normal speech Psych: normal mood and affect Labs and Imaging: Laboratory Tests 01/28/17 07:54 Red Blood Count 3.84 L, Mean Corpuscular Volume 96.8 H, Mean Corpuscular Hemoglobin 31.1, Mean Corpuscular Hemoglobin Concent 32.2, Red Cell Distribution Width 11.9, Calcium Level 8.3 L, Aspartate Amino Transf (AST/SGOT) 16, Alanine Aminotransferase (ALT/SGPT) 19, Alkaline Phosphatase 50, Total Bilirubin 0.5, Total Protein 6.4, Albumin 2.4 L Assessment and Plan: 71-year-old female with history of Takotsubo cardiomyopathy in 2013, COPD, Crohn 's disease status post resection, chronic left lower lobe nodule and chronic right upper lobe nodule who presented to the emergency department with shortness of breath. She was admitted with a COPD exacerbation, but has declined systemic steroid treatment. Her respiratory status has been improving on dual nebulized steroids, but she has had several fevers with no clear source. 1. COPD exacerbation: The patient's oxygen requirements have currently decreased to 1 L. The patient does not use any oxygen at home. We will continue home Advair, as well as scheduled DuoNeb's as needed albuterol. We will also continue Pulmicort nebs, and she will likely need to be discharged home on this. Stop oral azithromycin. As noted above, the patient has declined systemic steroid therapy. Given her compromised respiratory status, we have been holding her home Ambien. We appreciate the input of pulmonology. 2. Fever: There is no clear etiology at this point. White count was mildly elevated upon admission, but has been normal for several days now. Prior chest x -rays have not revealed any pneumonia, and a respiratory virus panel, C. difficile, and blood cultures were negative upon admission. UA shows likely contamination, and Ucx is negative. Repeat blood cultures are negative at 24H, and LFTs are WNL. Given that the patient reports that her diarrhea has improved and is not bloody, I doubt that this is secondary to any issues with her Crohn's , although, we will check a GI panel and FOBT. At this time, we will hold off on any antibiotics, as we do not have a clear source, ,as she is clinically non- toxic appearing, and as the patient states that she has terrible rebound exacerbations of her Crohn's whenever she is on heavy antibiotics. The patient states that if we feel antibiotics are truly warranted, she will not decline them, but she would like to be cautious about their use. If a clear source of the fevers is identified, then we will start antibiotics at that time. We will check an echo to assess any evidence of valvular vegetation. Another possibility is that this is related to the azithromycin she has been on, so we will stop that at that time. I have discussed these possibilities with Dr. James, and he thinks a drug fever from nhithro may be quite likely. 3. Crohn's disease: Per the patient, the diarrhea is starting to firm up, and she is not having any blood. Continue Bacid and cholestyramine. 4. Protein calorie malnutrition: Likely secondary to both poor absorption from her Crohn's disease, as well as advanced pulmonary illness. Stable at this time. DVT prophylaxis: Lovenox Dispo: pending resolution in her fevers, and workup for fevers, as well as being able to get off oxygen VS, I&O, 24H, Fishbone Vital Signs/I&O Vital Signs Date Time Temp Pulse Resp B/P (MAP) Pulse Ox O2 Delivery O2 Flow Rate FiO2 01/28/17 10:23 Nasal Cannula 2.0 01/28/17 06:00 100.1 106 38 119/57 (77) 88 01/23/17 20:05 50 I&O- Last 24 Hours up to 6 AM 01/28/17 06:00 Intake Total 840 ml Output Total 1475 ml Balance -635 ml Laboratory Data 24H LABS Laboratory Tests 2 01/27/17 13:32: Urine Appearance HAZY, Urine Color YELLOW, Urine pH 5.0, Urine Specific [place] 1.015, Urine Protein NEGATIVE, Urine Glucose (UA) NEGATIVE, Urine Ketones NEGATIVE, Urine Urobilinogen 0.2, Urine Bilirubin NEGATIVE, Urine Leukocyte Esterase NEGATIVE, Urine Blood NEGATIVE, Urine Nitrite NEGATIVE, Urine WBC (Auto ) 2, Urine RBC (Auto) 2, Urine Hyaline Casts (Auto) 0, Urine Bacteria (Auto) 1+H , Urine Squamous Epithelial Cells 3, Urine Mucus (Auto) SMALL, Urine Sperm (Auto ) 01/28/17 07:54: Erythrocyte Sedimentation Rate 71H, Anion Gap 5L, Glomerular Filtration Rate > 60.0, Blood Urea Nitrogen 11, Creatinine 0.55, Sodium Level 137, Potassium Level 4.0, Chloride Level 100, Carbon Dioxide Level 32, Calcium Level 8.3L, Aspartate Amino Transf (AST/SGOT) 16, Alanine Aminotransferase (ALT/SGPT) 19, Alkaline Phosphatase 50, Total Bilirubin 0.5, Total Protein 6.4, Albumin 2.4L, Magnesium Level 1.9, C-Reactive Protein, Quantitative 14.50H, Albumin/Globulin Ratio 0.60L CBC/BMP Laboratory Tests 01/28/17 07:54 Red Blood Count 3.84 L, Mean Corpuscular Volume 96.8 H, Mean Corpuscular Hemoglobin 31.1, Mean Corpuscular Hemoglobin Concent 32.2, Red Cell Distribution Width 11.9, Calcium Level 8.3 L, Aspartate Amino Transf (AST/SGOT) 16, Alanine Aminotransferase (ALT/SGPT) 19, Alkaline Phosphatase 50, Total Bilirubin 0.5, Total Protein 6.4, Albumin 2.4 L Microbiology Microbiology 01/27/17 Blood Culture - Preliminary, Resulted No growth after 24 hours . All specim... 01/27/17 Blood Culture - Preliminary, Resulted No growth after 24 hours . All specim... 01/23/17 Blood Culture - Preliminary, Resulted No Growth after 72 hours. All specime... 01/23/17 Blood Culture - Preliminary, Resulted No Growth after 72 hours. All specime... 01/25/17 Clostridium difficile (PCR) - Final, Complete 01/23/17 Respiratory Virus Panel (PCR) ([facility]) - Final, Complete 01/27/17 Urine Culture - Final, Complete ALISON AUSTIN January 28, 2017 13:21
[2017-01-28 15:00] VITALS: BP 127/61
[2017-01-28] MEDS: ACETAMINOPHEN TAB 650MG DOSE (2X325MG) PO PRN (15:34)
[2017-01-28 22:00] VITALS: BP 132/60
--- NOTE | 2017-01-28 22:46 | ECHO ---
DATE OF PROCEDURE: 01/28/2017 REFERRING PHYSICIAN: Veronica Weaver MD INDICATION: Fever. HEIGHT: 168 cm WEIGHT: 49.5 kg MEASUREMENTS: Left atrium: 4.0 cm Ventricular septum: 0.90 cm Posterior wall: 0.90 cm Left ventricle diastole: 4.6 cm Aortic annulus: 2.3 cm Aortic root: 3.2 cm Proximal ascending aorta: 2.7 cm Inferior vena cava: 1.5 cm DOPPLER MEASUREMENTS: Aortic valve velocity: 163 cm/s LVOT velocity: 102 cm/s LVOT VTI: 17.5 cm Mitral E velocity: 73.5 cm/s Mitral A velocity: 102 cm/s Mitral E deceleration time: 202 ms Very mild tricuspid regurgitation. Estimated right ventricle systolic pressure 27 mmHg assuming a right atrial pressure of 5 mmHg. MITRAL ANNULAR TISSUE DOPPLER: E prime septal: 5.8 cm/s DESCRIPTION: Rhythm was sinus tachycardia. This is a moderately technically difficult echocardiogram. This is a 2D, M-mode, color flow Doppler and pulse wave Doppler examination that included mitral annular tissue Doppler. CONCLUSIONS: 1. No vegetations apparent, however, this was a moderately technically difficult echocardiogram. 2. Mild aortic valve sclerosis. No aortic regurgitation. 3. Hyperdynamic LV systolic function. Left ventricular ejection fraction (LVEF) of 75% to 80% by visual estimate. 4. Moderately technically difficult echocardiogram. 5. Very small pericardial effusion. 6. Mild left atrial dilatation. 7. Mild mitral annular calcification. No mitral regurgitation.
[2017-01-29 06:00] VITALS: BP 116/58
[2017-01-29 07:17] LABS: MEAN CORPUSCULAR HEMOGLOBIN 32.1 pg (27.0-33.0); MEAN CORPUSCULAR HGB CONC 32.4 g/dl (32.0-36.5); RED CELL DISTRIBUTION WIDTH 11.9 % (11.5-14.5); WHITE BLOOD COUNT 5.1 K/mm3 (4.0-10.0)
[2017-01-29 07:38] LABS: ANION GAP 7 MEQ/L (8-16); BLOOD UREA NITROGEN 9 MG/DL (7-18); CALCIUM LEVEL 8.1 MG/DL (8.8-10.2); CARBON DIOXIDE LEVEL 28 MEQ/L (21-32); CHLORIDE LEVEL 100 MEQ/L (98-107); CREATININE FOR GFR 0.49 MG/DL (0.55-1.02); GLOMERULAR FILTRATION RATE > 60.0 (>39); GLUCOSE, FASTING 95 MG/DL (83-110); MAGNESIUM LEVEL 1.9 MG/DL (1.8-2.4); POTASSIUM SERUM 4.2 MEQ/L (3.5-5.1); SODIUM LEVEL 135 MEQ/L (136-145)
[2017-01-29] MEDS: ADVAIR DISKUS 500/50 INH PWD INH SCH ×2 (07:46→19:48)
[2017-01-29] MEDS: BUDESONIDE 0.5 MG/2 ML INHALATION SUSPENSION INH SCH ×2 (07:46→19:48)
[2017-01-29] MEDS: IPRATROPIUM 0.5MG/ALBUTEROL 2.5MG INH SOL UD 3ML (DUONEB)(J7620) NEB SCH ×4 (07:47→20:00)
[2017-01-29] MEDS: CHOLESTYRAMINE 4 GM PWD PKT PO SCH ×3 (08:03→17:17)
[2017-01-29] MEDS: LACTOBACILLUS ACIDOPHILUS CAP (BACID) PO SCH ×3 (08:03→20:11)
[2017-01-29] MEDS: NYSTATIN 500,000 U/5 ML SUSP UDC SS SCH ×4 (08:03→20:10)
[2017-01-29] MEDS: ASCORBIC ACID 500 MG TAB PO SCH (08:03)
[2017-01-29] MEDS: TOLTERODINE TARTRATE 2 MG LA CAP (DETROL LA) PO SCH (08:03)
[2017-01-29] MEDS: ENOXAPARIN 30 MG/0.3 ML SYR (J1650) SC SCH (08:04)
[2017-01-29] MEDS: FEMHRT PO SCH (08:04)
[2017-01-29] MEDS: MULTIVITAMINS/MINERALS THERAP 1 TAB PO SCH (08:04)
--- NOTE | 2017-01-29 13:29 | IPNPDOC ---
Subjective Date Seen The patient was seen on 01/29/17. Subjective Chief Complaint/HPI The patient is a 71-year-old female admitted with a reason for visit of Acute Respiratory Failure W/Hypoxia. General: Denies: ROS Unobtainable, Chills, Night Sweats, Fatigue, Malaise, Normal Appetite, Other Symptoms Constitutional: Denies: Chills, Fever, Malaise, Night Sweats, Weakness, Fatigue , Weight Loss, Lethargy, Other Eyes: Denies: Pain, Vision change, Conjunctivae inflammation, Eyelid inflammation, Redness, Other ENT: Denies: Head Aches, Ear Pain, Dysphagia, Sinus Congestion, Post Nasal Drip , Sore Throat, Epistaxis, Other Symptoms Skin: Denies: Rash, Lesions, Jaundice, Bruising, Itching, Dry, Breakdown, Nail Changes, Other Pulmonary: Denies: Dyspnea, Cough, Pleuritic Chest Pain, Other Symptoms Cardiovascular: Denies: Chest Pain, Palpitations, Orthopnea, Paroxysmal Noc. Dyspnea, Edema, Lt Headedness, Other Symptoms Gastrointestinal: Denies: Nausea, Vomiting, Abdominal Pain, Diarrhea, Constipation, Melena, Hematochezia, Other Symptoms Genitourinary: Denies: Dysuria, Frequency, Incontinence, Hematuria, Retention, Other Symptoms Hematologic: Denies: Bruising, Bleeding Excessively, Petecchia, Purpura, Enlarged Lymph Nodes, Other Hematologic Endocrine: Denies: Polydipsia, Polyphagia, Polyuria, Heat Intolerance, Cold Intolerance, Other Endocrine Sx Objective Physical Examination General Exam: Positive: Alert, Cooperative, No Acute Distress Eye Exam: Positive: PERRLA, Conjunctiva & lids normal, EOMI, Negative: Sclera icteric ENT Exam: Positive: Atraumatic, Mucous membr. moist/pink Neck Exam: Positive: Supple Chest Exam: Positive: Clear to auscultation, Normal air movement Heart Exam: Positive: Rate Normal Abdomen Exam: Positive: Normal bowel sounds, Soft, Negative: Tenderness Extremity Exam: Negative: Edema Psych Exam: Positive: Oriented x 3 Assessment /Plan Problems (1) Fever Status: Acute Discussed With: Patient Problem Specific Plan: Monitor Clinically, Repeat Labs, Repeat Tests Problem Text: unclear etiology ct abd for further eval consider id c/s if continues (2) Crohns disease Status: Chronic Discussed With: Patient Problem Specific Plan: Monitor Clinically, Repeat Tests (3) Protein calorie malnutrition Status: Chronic Discussed With: Patient Problem Specific Plan: Monitor Clinically (4) COPD (chronic obstructive pulmonary disease) Status: Chronic Discussed With: Patient Problem Specific Plan: Consult Specialist, Monitor Clinically Problem Text: art Fitch, pulmicort, albuterol prn follow as per pulm, assistance appreciated (5) Takotsubo cardiomyopathy Status: Resolved Discussed With: Patient Problem Text: 2d echocardiogram noted Plan/VTE VTE Prophylaxis Ordered?: Yes (lovenox) Plan Diet: Continue Current Activity: Continue Current Diagnostics: Repeat Labs in AM, CT VS, I&O, 24H, Fishbone Vital Signs/I&O Vital Signs Date Time Temp Pulse Resp B/P (MAP) Pulse Ox O2 Delivery O2 Flow Rate FiO2 01/29/17 06:00 98.6 117 20 116/58 (77) 97 Nasal Cannula 2.0 01/23/17 20:05 50 I&O- Last 24 Hours up to 6 AM 01/29/17 06:00 Intake Total 2460 ml Output Total 1375 ml Balance 1085 ml Laboratory Data 24H LABS Laboratory Tests 2 01/29/17 07:00: Anion Gap 7L, Glomerular Filtration Rate > 60.0, Blood Urea Nitrogen 9, Creatinine 0.49L, Sodium Level 135L, Potassium Level 4.2, Chloride Level 100, Carbon Dioxide Level 28, Calcium Level 8.1L, Magnesium Level 1.9 CBC/BMP Laboratory Tests 01/29/17 07:00 Red Blood Count 3.67 L, Mean Corpuscular Volume 99.0 H, Mean Corpuscular Hemoglobin 32.1, Mean Corpuscular Hemoglobin Concent 32.4, Red Cell Distribution Width 11.9, Calcium Level 8.1 L Microbiology Microbiology 01/27/17 Blood Culture - Preliminary, Resulted No Growth after 48 hours. All Specime... 01/27/17 Blood Culture - Preliminary, Resulted No Growth after 48 hours. All Specime... 01/23/17 Blood Culture - Final, Complete NO GROWTH AFTER 5 DAYS 01/23/17 Blood Culture - Final, Complete NO GROWTH AFTER 5 DAYS 01/28/17 Gastrointestinal Tract Panel (PCR) - Final, Complete 01/28/17 Stool Occult Blood ([facility]) - Final, Complete 01/25/17 Clostridium difficile (PCR) - Final, Complete 4/26/17 Respiratory Virus Panel (PCR) ([facility]) - Final, Complete 01/27/17 Urine Culture - Final, Complete DENITA LE MD January 29, 2017 13:29
[2017-01-29 14:00] VITALS: BP 129/60
[2017-01-29] MEDS ORDERED: ISOVUE-370 76% 100ML VIAL (Q9967) As Ordered ONE (14:02)
--- NOTE | 2017-01-29 17:34 | REP ---
CT ABDOMEN: HISTORY: Possible abscess. History of Crohn's disease. Now having pyrexia. COMPARISON: The latest prior for comparison is dated 04/22/2014. CONTRAST: 100 mL of Isovue-370 The precontrast enhanced portion of the exam shows hepatic and splenic densities to be within normal limits. There are no choleliths. There are no nephroliths. The lung bases show scattered opacities bilaterally representing a change from 01/07/2017 CT of the chest. There are no pleural or pericardial effusions. The contrast enhanced portion of the examination shows the liver, gallbladder, spleen, pancreas, and adrenal glands to be within normal limits and unchanged. Once again, there are multiple bilateral renal cysts all having the appearance of Bosniak, Class I simple cysts. No abnormal septations, mural nodules or enhancement is identifiable. The abdominal aorta and paraaortic regions are unchanged, being within normal limits. There is gaseous distention of the colon, but no evidence of abnormal bowel wall thickening or enhancement. There is no evidence of free fluid or free air. CT pelvis: Colonic distention continues into the sigmoid colon and distends the rectum. This represents a change from the prior exam. There is no free fluid or free air in the pelvis. There is no evidence of pelvic mass or adenopathy. Bone window technique throughout the exam shows spinal degenerative changes and evidence to suggest bony demineralization. Bilateral hip degenerative changes are also present. IMPRESSION: 1. There is primarily gaseous distention of the colon but with content as well representing a change from the prior exam. There is no evidence of free intraperitoneal air or intestinal obstruction. This needs to be correlated clinically with appropriate followup. Does the patient has a history of Mirna's syndrome? 2. Bilateral Bosniak, Class I renal cyst. 3. Other findings as described above. In the lung bases there is evidence to suggest basilar pneumonia. This needs to be correlated clinically with appropriate followup. Signed by Raleigh Mulligan DO 01/30/2017 11:09 A
[2017-01-29] MEDS: ACETAMINOPHEN TAB 650MG DOSE (2X325MG) PO PRN (20:11)
[2017-01-29 22:00] VITALS: BP 143/71
[2017-01-30] MEDS: ACETAMINOPHEN TAB 650MG DOSE (2X325MG) PO PRN ×2 (05:58→20:39)
[2017-01-30 06:00] VITALS: BP 112/54
[2017-01-30 07:02] LABS: MEAN CORPUSCULAR HEMOGLOBIN 32.4 pg (27.0-33.0); MEAN CORPUSCULAR HGB CONC 33.5 g/dl (32.0-36.5); MEAN CORPUSCULAR VOLUME 96.9 fl (80.0-96.0); WHITE BLOOD COUNT 5.1 K/mm3 (4.0-10.0)
[2017-01-30] MEDS: ADVAIR DISKUS 500/50 INH PWD INH SCH ×2 (07:20→23:17)
[2017-01-30] MEDS: BUDESONIDE 0.5 MG/2 ML INHALATION SUSPENSION INH SCH ×2 (07:20→20:31)
[2017-01-30] MEDS: IPRATROPIUM 0.5MG/ALBUTEROL 2.5MG INH SOL UD 3ML (DUONEB)(J7620) NEB SCH ×4 (07:20→20:31)
[2017-01-30 07:24] LABS: ANION GAP 6 MEQ/L (8-16); BLOOD UREA NITROGEN 8 MG/DL (7-18); CALCIUM LEVEL 8.7 MG/DL (8.8-10.2); CARBON DIOXIDE LEVEL 32 MEQ/L (21-32); CHLORIDE LEVEL 99 MEQ/L (98-107); CREATININE FOR GFR 0.48 MG/DL (0.55-1.02); GLOMERULAR FILTRATION RATE > 60.0 (>39); GLUCOSE, FASTING 109 MG/DL (83-110); MAGNESIUM LEVEL 2.1 MG/DL (1.8-2.4); SODIUM LEVEL 137 MEQ/L (136-145)
[2017-01-30] MEDS: LACTOBACILLUS ACIDOPHILUS CAP (BACID) PO SCH ×3 (07:59→20:39)
[2017-01-30] MEDS: NYSTATIN 500,000 U/5 ML SUSP UDC SS SCH ×4 (07:59→20:39)
[2017-01-30] MEDS: ASCORBIC ACID 500 MG TAB PO SCH (07:59)
[2017-01-30] MEDS: MULTIVITAMINS/MINERALS THERAP 1 TAB PO SCH (07:59)
[2017-01-30] MEDS: CHOLESTYRAMINE 4 GM PWD PKT PO SCH ×3 (07:59→16:51)
[2017-01-30] MEDS: FEMHRT PO SCH (08:00)
[2017-01-30] MEDS: ENOXAPARIN 30 MG/0.3 ML SYR (J1650) SC SCH (08:00)
[2017-01-30] MEDS: TOLTERODINE TARTRATE 2 MG LA CAP (DETROL LA) PO SCH (08:00)
[2017-01-30 14:00] VITALS: BP 127/60
[2017-01-30] MEDS ORDERED: LOMOTIL 2.5MG/0.025MG TABLET PO ONE (17:00)
[2017-01-30 22:00] VITALS: BP 127/59
[2017-01-31 06:00] VITALS: BP 114/51
[2017-01-31] MEDS: ADVAIR DISKUS 500/50 INH PWD INH SCH ×2 (07:11→20:27)
[2017-01-31] MEDS: IPRATROPIUM 0.5MG/ALBUTEROL 2.5MG INH SOL UD 3ML (DUONEB)(J7620) NEB SCH ×4 (07:11→20:27)
[2017-01-31] MEDS: BUDESONIDE 0.5 MG/2 ML INHALATION SUSPENSION INH SCH ×2 (07:11→20:27)
[2017-01-31] MEDS: CHOLESTYRAMINE 4 GM PWD PKT PO SCH ×3 (07:53→16:32)
[2017-01-31] MEDS ORDERED: AZITHROMYCIN 250 MG TAB PO SCH (09:00)
[2017-01-31] MEDS: ENOXAPARIN 30 MG/0.3 ML SYR (J1650) SC SCH (09:00)
[2017-01-31] MEDS: NYSTATIN 500,000 U/5 ML SUSP UDC SS SCH ×4 (09:48→20:01)
[2017-01-31] MEDS: FEMHRT PO SCH (09:48)
[2017-01-31] MEDS: ASCORBIC ACID 500 MG TAB PO SCH (09:49)
[2017-01-31] MEDS: TOLTERODINE TARTRATE 2 MG LA CAP (DETROL LA) PO SCH (09:49)
[2017-01-31] MEDS: MULTIVITAMINS/MINERALS THERAP 1 TAB PO SCH (09:49)
[2017-01-31] MEDS: LACTOBACILLUS ACIDOPHILUS CAP (BACID) PO SCH ×3 (09:49→20:01)
--- NOTE | 2017-01-31 09:53 | IPNPDOC ---
Subjective Date Seen The patient was seen on 01/30/17. Subjective Chief Complaint/HPI The patient is a 71-year-old female admitted with a reason for visit of Acute Respiratory Failure W/Hypoxia. General: Denies: ROS Unobtainable, Chills, Night Sweats, Fatigue, Malaise, Normal Appetite, Other Symptoms Constitutional: Denies: Chills, Fever, Malaise, Night Sweats, Weakness, Fatigue , Weight Loss, Lethargy, Other Eyes: Denies: Pain, Vision change, Conjunctivae inflammation, Eyelid inflammation, Redness, Other ENT: Denies: Head Aches, Ear Pain, Dysphagia, Sinus Congestion, Post Nasal Drip , Sore Throat, Epistaxis, Other Symptoms Skin: Denies: Rash, Lesions, Jaundice, Bruising, Itching, Dry, Breakdown, Nail Changes, Other Pulmonary: Denies: Dyspnea, Cough, Pleuritic Chest Pain, Other Symptoms Cardiovascular: Denies: Chest Pain, Palpitations, Orthopnea, Paroxysmal Noc. Dyspnea, Edema, Lt Headedness, Other Symptoms Gastrointestinal: Denies: Nausea, Vomiting, Abdominal Pain, Diarrhea, Constipation, Melena, Hematochezia, Other Symptoms Genitourinary: Denies: Dysuria, Frequency, Incontinence, Hematuria, Retention, Other Symptoms Objective Physical Examination General Exam: Positive: Alert, Cooperative, No Acute Distress Eye Exam: Positive: PERRLA, Conjunctiva & lids normal, EOMI, Negative: Sclera icteric ENT Exam: Positive: Atraumatic, Mucous membr. moist/pink Neck Exam: Positive: Supple Chest Exam: Positive: Clear to auscultation, Normal air movement Heart Exam: Positive: Rate Normal Abdomen Exam: Positive: Normal bowel sounds, Soft, Negative: Tenderness Extremity Exam: Negative: Edema Psych Exam: Positive: Oriented x 3 Assessment /Plan Problems (1) Fever Status: Acute Discussed With: Patient Problem Specific Plan: Monitor Clinically, Repeat Labs, Repeat Tests Problem Text: unclear etiology ct abd unrevealing - reported pna id c/s pending (2) Crohns disease Status: Chronic Discussed With: Patient Problem Specific Plan: Monitor Clinically, Repeat Tests (3) Protein calorie malnutrition Status: Chronic Discussed With: Patient Problem Specific Plan: Monitor Clinically (4) COPD (chronic obstructive pulmonary disease) Status: Chronic Discussed With: Patient Problem Specific Plan: Consult Specialist, Monitor Clinically Problem Text: art Fitch, pulmicort, albuterol prn follow as per pulrose, assistance appreciated (5) Takotsubo cardiomyopathy Status: Resolved Discussed With: Patient Problem Text: 2d echocardiogram noted Plan/VTE VTE Prophylaxis Ordered?: Yes (lovenox) Plan Diet: Continue Current Activity: Continue Current Diagnostics: Repeat Labs in AM Pending ID consultation, for fevers unknown origin VS, I&O, 24H, Fishbone Vital Signs/I&O Vital Signs Date Time Temp Pulse Resp B/P (MAP) Pulse Ox O2 Delivery O2 Flow Rate FiO2 01/31/17 06:00 99.5 97 18 114/51 (72) 95 Nasal Cannula 2.0 I&O- Last 24 Hours up to 6 AM 01/31/17 06:00 Intake Total 3350 ml Output Total 1650 ml Balance 1700 ml Laboratory Data 24H LABS Laboratory Tests 2 01/31/17 08:02: Erythrocyte Sedimentation Rate 70H, C-Reactive Protein, Quantitative 9.98H Microbiology Microbiology 01/27/17 Blood Culture - Preliminary, Resulted No Growth after 72 hours. All specime... 01/27/17 Blood Culture - Preliminary, Resulted No Growth after 72 hours. All specime... 01/23/17 Blood Culture - Final, Complete NO GROWTH AFTER 5 DAYS 01/23/17 Blood Culture - Final, Complete NO GROWTH AFTER 5 DAYS 01/28/17 Gastrointestinal Tract Panel (PCR) - Final, Complete 01/28/17 Stool Occult Blood ([facility]) - Final, Complete 01/25/17 Clostridium difficile (PCR) - Final, Complete 01/23/17 Respiratory Virus Panel (PCR) ([facility]) - Final, Complete 01/27/17 Urine Culture - Final, Complete DENITA LE MD January 31, 2017 09:53
--- NOTE | 2017-01-31 09:55 | IPNPDOC ---
Subjective Date Seen The patient was seen on 01/31/17. Subjective Chief Complaint/HPI The patient is a 71-year-old female admitted with a reason for visit of Acute Respiratory Failure W/Hypoxia. Events since last encounter Abdominal pain noted yesterday, relieved with lomotil which patient states she takes at home very rarely for episodic pain. No new medical complaints today. General: Denies: ROS Unobtainable, Chills, Night Sweats, Fatigue, Malaise, Normal Appetite, Other Symptoms Constitutional: Denies: Chills, Fever, Malaise, Night Sweats, Weakness, Fatigue , Weight Loss, Lethargy, Other Eyes: Denies: Pain, Vision change, Conjunctivae inflammation, Eyelid inflammation, Redness, Other ENT: Denies: Head Aches, Ear Pain, Dysphagia, Sinus Congestion, Post Nasal Drip , Sore Throat, Epistaxis, Other Symptoms Skin: Denies: Rash, Lesions, Jaundice, Bruising, Itching, Dry, Breakdown, Nail Changes, Other Pulmonary: Denies: Dyspnea, Cough, Pleuritic Chest Pain, Other Symptoms Cardiovascular: Denies: Chest Pain, Palpitations, Orthopnea, Paroxysmal Noc. Dyspnea, Edema, Lt Headedness, Other Symptoms Gastrointestinal: Denies: Nausea, Vomiting, Abdominal Pain, Diarrhea, Constipation, Melena, Hematochezia, Other Symptoms Objective Physical Examination General Exam: Positive: Alert, Cooperative, No Acute Distress Eye Exam: Positive: PERRLA, Conjunctiva & lids normal, EOMI, Negative: Sclera icteric ENT Exam: Positive: Atraumatic, Mucous membr. moist/pink Neck Exam: Positive: Supple Chest Exam: Positive: Clear to auscultation, Normal air movement Heart Exam: Positive: Rate Normal Abdomen Exam: Positive: Normal bowel sounds, Soft, Negative: Tenderness Extremity Exam: Negative: Edema Psych Exam: Positive: Oriented x 3 Assessment /Plan Problems (1) Fever Status: Acute Discussed With: Patient Problem Specific Plan: Consult Specialist, Monitor Clinically, Repeat Labs, Repeat Tests Problem Text: unclear etiology ct abd unrevealing - reported pna ct chest pending id c/s pending (2) Crohns disease Status: Chronic Discussed With: Patient Problem Specific Plan: Monitor Clinically, Repeat Tests (3) Protein calorie malnutrition Status: Chronic Discussed With: Patient Problem Specific Plan: Monitor Clinically (4) COPD (chronic obstructive pulmonary disease) Status: Chronic Discussed With: Patient Problem Specific Plan: Consult Specialist, Monitor Clinically Problem Text: Advair, duonebs, pulmicort, albuterol prn follow as per shaista, assistance appreciated (5) Takotsubo cardiomyopathy Status: Resolved Discussed With: Patient Problem Text: 2d echocardiogram noted Plan/VTE VTE Prophylaxis Ordered?: Yes (lovenox) Plan Diet: Continue Current Activity: Continue Current Diagnostics: Repeat Labs in AM, CT Still no clear etiology for her recurrent fevers. She states she does get short of breath with her fevers. CT chest pending for further evaluation. ID c/s pending. Patient is refusing some of her medical therapy including steroids and pharmacological dvt prophylaxis. VS, I&O, 24H, Fishbone Vital Signs/I&O Vital Signs Date Time Temp Pulse Resp B/P (MAP) Pulse Ox O2 Delivery O2 Flow Rate FiO2 01/31/17 06:00 99.5 97 18 114/51 (72) 95 Nasal Cannula 2.0 I&O- Last 24 Hours up to 6 AM 01/31/17 06:00 Intake Total 3350 ml Output Total 1650 ml Balance 1700 ml Laboratory Data 24H LABS Laboratory Tests 2 01/31/17 08:02: Erythrocyte Sedimentation Rate 70H, C-Reactive Protein, Quantitative 9.98H Microbiology Microbiology 01/27/17 Blood Culture - Preliminary, Resulted No Growth after 72 hours. All specime... 01/27/17 Blood Culture - Preliminary, Resulted No Growth after 72 hours. All specime... 01/23/17 Blood Culture - Final, Complete NO GROWTH AFTER 5 DAYS 01/23/17 Blood Culture - Final, Complete NO GROWTH AFTER 5 DAYS 01/28/17 Gastrointestinal Tract Panel (PCR) - Final, Complete 01/28/17 Stool Occult Blood ([facility]) - Final, Complete 01/25/17 Clostridium difficile (PCR) - Final, Complete 01/23/17 Respiratory Virus Panel (PCR) ([facility]) - Final, Complete 01/27/17 Urine Culture - Final, Complete DENITA LE MD January 31, 2017 09:55
--- NOTE | 2017-01-31 10:03 | REP ---
CT CHEST WITHOUT IV CONTRAST: CT chest is performed without IV contrast, with sagittal and coronal reconstruction images. Comparison 01/07/2017. Diffuse emphysematous changes are again noted with scattered interstitial fibrotic change. However, there does appear to be superimposed bibasilar interstitial infiltrates, right greater than left with a few patchy areas of alveolar atelectasis/infiltrate in each lung base. Two small subcentimeter left upper lobe nodular opacities are unchanged since the prior exam. Two calcified granulomas are seen in the right upper and middle lobes. There are mildly enlarged pericarinal and right hilar lymph nodes measuring up to 1.3 cm in short axis dimension which are probably reactive. Mild pericardial fluid/thickening is unchanged. There is no pleural effusion. The visualized upper abdominal structures are grossly unremarkable. IMPRESSION: Emphysematous change and interstitial fibrosis. There are superimposed interstitial infiltrate in both lung bases right greater than left. Very small patchy areas of bilateral lower lobe atelectasis/infiltrate also noted. Mild mediastinal and right hilar adenopathy likely reactive. Signed by Johnny Garcia MD 02/01/2017 05:10 P
--- NOTE | 2017-01-31 10:29 | CR ---
DATE OF CONSULTATION: 01/30/2017 Asked to consult by Dr. Sanchez for evaluation of fever of unknown origin. HISTORY OF PRESENT ILLNESS: Mrs. Portillo is a 71-year-old pleasant female with a history of advanced chronic obstructive pulmonary disease (COPD) who was recently hospitalized on 01/07, discharged on 01/11 with COPD exacerbation which was felt to be related to a viral illness. Respiratory panel was positive for Coronavirus OC43. The patient was treated with IV Solu-Medrol during her hospitalization for 4 days and then was given a prednisone taper over the next 6 days. The patient felt comfortable with that tapering schedule and she has had problem with rapid tapers in the past. She started complaining of increasing shortness of breath when the prednisone was discontinued. She had significant dyspnea on exertion with just walking 20-25 feet. She was not discharged on oxygen. She denied any orthopnea, paroxysmal nocturnal dyspnea. No fever or chills. On admission, she had a very rare cough. She came to the emergency room complaining of severe shortness of breath. She refused to have steroid treatment because she felt that they were tapered too fast and they make her worse after she stops them. She was given Heliox with nebulized treatments and she received Levaquin one dose and then Zithromax for 5 days. She initially did not have fevers during the first day of admission. The next day, she did develop temperatures of around 100.7, 100.8, but slowly the temperature has gotten worse. Now she spikes every night to 102.3. Today as I was visiting with her, she had a temperature of 101.7 and felt warm. The patient states her shortness of breath has improved. She is on 1 liter nasal cannula with saturations about 91-92%. PAST MEDICAL HISTORY: Significant for: 1. Chronic obstructive pulmonary disease (COPD) which is not oxygen or steroid dependent. Using Advair 500/50 twice daily as well as Atrovent albuterol nebs four times a day. 2. Crohn's disease status post two surgical resections but has been in remission for over 5 years, on no medication. 3. Takotsubo cardiomyopathy diagnosed 09/[address] Rodriguez. 4. Osteoporosis at a very young age from chronic steroids for Crohn's disease. 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 5. Nephrolithiasis. 6. Pulmonary nodules which are followed up by Dr. Patel. She has had a bronchoscopy done in 2012 which was benign. PAST SURGICAL HISTORY: 1. Bowel resection for Crohn's disease. 2. Kidney stone extraction. 3. Coronary angiogram. 4. Skin cancer status post resection of a neck lesion recently by dermatology. 5. Colonoscopy every 5 years, is due to have one by her radiographer in February 2017. SOCIAL HISTORY: She quit smoking 2013, does not drink alcohol. 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 REVIEW OF SYSTEMS: She denies any headache, visual changes, runny nose, sinus pain. No abdominal pain but she has had some diarrhea since she has been on antibiotics. She feels it was related to the Zithromax, it is non-bloody, non-mucoid. She states she usually takes Lomotil when she has antibiotic to help with her diarrhea. She denies lower extremity weakness. No rashes. Temperature 101, pulse 138, respirations 26, blood pressure 127/59, oxygen sat 91% on 2 liters nasal cannula. Frail looking elderly female in mild respiratory distress. Heart: Normal S1, S2, tachycardic with systolic ejection murmur 2/6 at the left upper sternal border. Lungs: Decreased breath sounds bilaterally with crackles at both bases. No wheezing. Abdomen is soft, nontender. No hepatosplenomegaly. Extremities: No clubbing, cyanosis or edema. No calf tenderness. Oropharynx: Upper and lower dentures. No lesions. Pupils equal, round and reactive. No jaundice. Neurologic exam: Alert and oriented times three, motor strength is normal. LABORATORY DATA: White count 5.1, hemoglobin 11.1, hematocrit 33.2, platelets 220. ESR 71. Sodium 137, potassium 4, chloride 99, bicarb 32, BUN 8, creatinine 0.48, glucose 109, calcium 8.7, magnesium 2.1, CRP 14.5. Urinalysis had 2 white cells, 2 red cells on 01/27. ABG: pH 7.39, pCO2 of 59, pO2 70, O2 sat 93% on 2 liters nasal cannula. This was done on 01/23. Imaging study: CT abdomen and pelvis shows gaseous distention of the colon but with content as well representing a change from previous exam, bilateral renal cysts. Lung bases show evidence of bibasilar interstitial findings. I reviewed the CT with Dr. Flako Patel who did not feel these were infiltrates. IMPRESSION: This is a 71-year-old female with severe chronic obstructive pulmonary disease (COPD) on chronic Advair treatments and nebs four times a day who has developed viral infection in early December with COPD exacerbation, since then has had deterioration of pulmonary status but mostly in the past 5 days the patient has had a fever of 102 every night which is somewhat concerning. Workup has included blood cultures times four sets being negative. Respiratory virus panel was negative. Clostridium difficile was negative. GI panel was negative. Urine culture was negative. The cause of the fever was initially felt to be related to Zithromax and therefore Zithromax was discontinued after treatment with 5 days. No new medications otherwise have been ordered. PLAN: Will plan to obtain a CT chest to follow up on possibly interstitial infiltrates and a new pulmonary nodule that was noted on exam from a month ago to rule out infection or other malignancy or interstitial lung disease that could explain her fever and worsening respiratory status. Case has been discussed with Dr. Patel who is also on the case and will be reviewing the CT with me tomorrow. Further treatment will depend on finding of CT chest. At this point, I will keep her off antibiotics and further treatment will be decided tomorrow after CT chest. LINDSAY
[2017-01-31 14:00] VITALS: BP 134/59
[2017-01-31] MEDS: ACETAMINOPHEN TAB 650MG DOSE (2X325MG) PO PRN (15:35)
[2017-01-31] MEDS: predniSONE 5 MG TAB PO SCH (16:33)
[2017-01-31] MEDS ORDERED: AZITHROMYCIN INJ 500 MG, VIAL MATE ADAPTER 1 EACH in D5W 250 ML IV SCH (17:00)
--- NOTE | 2017-01-31 17:27 | IPN ---
DATE: 01/31/2017 Esperanza continues to complain of fever every afternoon mostly. Her cough is dry mostly. She has still shortness of breath but improved compared to admission. Case has been discussed with Dr. Patel. The patient has agreed to resume prednisone 5 mg daily, but no higher dose than that. She denies any nausea or vomiting. She does have diarrhea, especially with antibiotic and her Crohn's disease. PHYSICAL EXAMINATION: On physical examination, temperature is 100.9, pulse 104, respirations 20, blood pressure 134/59, oxygen saturation 94% on two liters nasal cannula. HEART: Normal S1, S2, tachycardiac. No murmurs. LUNGS: Crackles at both bases. Diminished air entry. ABDOMEN: Soft, nontender. EXTREMITIES: No edema. LABORATORY DATA: White count is 5.1, hemoglobin 11.1, hematocrit 33.2, platelets 220. ESR 70. Sodium 137, potassium 4, chloride 99, bicarbonate 32, BUN 8, creatinine 0.5, glucose 109, calcium 8.7, magnesium 2.7, CRP 9.98. PLAN: Resume prednisone 5 mg daily. Levofloxacin 750 mg by mouth daily. Urine for pneumococcal antigen and Legionella antigen will be obtained. We will try to also obtain a sputum gram stain and culture. CT of the abdomen was reviewed showing emphysematous changes, interstitial fibrosis, superimposed infiltrates in both lung bases, right greater than left, mild mediastinal and right hilar adenopathy likely reactive.
[2017-01-31] MEDS ORDERED: cefTRIAXone SOD 2 GM in D5W MINI-BAG PLUS 50 ML IV SCH (18:00)
[2017-01-31] MEDS: LevoFLOXacin 750 MG TABLET PO SCH (18:26)
[2017-01-31 22:00] VITALS: BP 129/55
[2017-02-01 06:00] VITALS: BP 123/61
[2017-02-01] MEDS: BUDESONIDE 0.5 MG/2 ML INHALATION SUSPENSION INH SCH ×2 (07:31→19:37)
[2017-02-01] MEDS: ADVAIR DISKUS 500/50 INH PWD INH SCH ×2 (07:31→19:37)
[2017-02-01] MEDS: IPRATROPIUM 0.5MG/ALBUTEROL 2.5MG INH SOL UD 3ML (DUONEB)(J7620) NEB SCH ×4 (07:34→19:37)
[2017-02-01] MEDS: CHOLESTYRAMINE 4 GM PWD PKT PO SCH ×3 (07:39→17:02)
[2017-02-01] MEDS: ENOXAPARIN 30 MG/0.3 ML SYR (J1650) SC SCH (09:00)
[2017-02-01] MEDS: NYSTATIN 500,000 U/5 ML SUSP UDC SS SCH ×4 (09:44→20:17)
[2017-02-01] MEDS: FEMHRT PO SCH (09:44)
[2017-02-01] MEDS: TOLTERODINE TARTRATE 2 MG LA CAP (DETROL LA) PO SCH (09:45)
[2017-02-01] MEDS: LACTOBACILLUS ACIDOPHILUS CAP (BACID) PO SCH ×3 (09:45→20:17)
[2017-02-01] MEDS: MULTIVITAMINS/MINERALS THERAP 1 TAB PO SCH (09:45)
[2017-02-01] MEDS: predniSONE 5 MG TAB PO SCH (09:45)
[2017-02-01] MEDS: ASCORBIC ACID 500 MG TAB PO SCH (09:45)
--- NOTE | 2017-02-01 11:28 | IPNPDOC ---
Subjective Date Seen The patient was seen on 02/01/17. Subjective Chief Complaint/HPI The patient is a 71-year-old female admitted with a reason for visit of Acute Respiratory Failure W/Hypoxia. General: Denies: ROS Unobtainable, Chills, Night Sweats, Fatigue, Malaise, Normal Appetite, Other Symptoms Constitutional: Denies: Chills, Fever, Malaise, Night Sweats, Weakness, Fatigue , Weight Loss, Lethargy, Other Eyes: Denies: Pain, Vision change, Conjunctivae inflammation, Eyelid inflammation, Redness, Other ENT: Denies: Head Aches, Ear Pain, Dysphagia, Sinus Congestion, Post Nasal Drip , Sore Throat, Epistaxis, Other Symptoms Skin: Denies: Rash, Lesions, Jaundice, Bruising, Itching, Dry, Breakdown, Nail Changes, Other Pulmonary: Denies: Dyspnea, Cough, Pleuritic Chest Pain, Other Symptoms Cardiovascular: Denies: Chest Pain, Palpitations, Orthopnea, Paroxysmal Noc. Dyspnea, Edema, Lt Headedness, Other Symptoms Gastrointestinal: Denies: Nausea, Vomiting, Abdominal Pain, Diarrhea, Constipation, Melena, Hematochezia, Other Symptoms Objective Physical Examination General Exam: Positive: Alert, Cooperative, No Acute Distress Eye Exam: Positive: PERRLA, Conjunctiva & lids normal, EOMI, Negative: Sclera icteric ENT Exam: Positive: Atraumatic, Mucous membr. moist/pink Neck Exam: Positive: Supple Chest Exam: Positive: Clear to auscultation, Normal air movement Heart Exam: Positive: Rate Normal Abdomen Exam: Positive: Normal bowel sounds, Soft, Negative: Tenderness Extremity Exam: Negative: Edema Psych Exam: Positive: Oriented x 3 Assessment /Plan Problems (1) Fever Status: Acute Discussed With: Patient Problem Specific Plan: Consult Specialist, Monitor Clinically, Repeat Labs, Repeat Tests Problem Text: unclear etiology ct abd unrevealing - reported pna ct chest noted id c/s appreciated levaquin 750 PO, prednisone 5 qd urine for pneumo and legionella ordered (2) Crohns disease Status: Chronic Discussed With: Patient Problem Specific Plan: Monitor Clinically, Repeat Tests (3) Protein calorie malnutrition Status: Chronic Discussed With: Patient Problem Specific Plan: Monitor Clinically (4) COPD (chronic obstructive pulmonary disease) Status: Chronic Discussed With: Patient Problem Specific Plan: Consult Specialist, Monitor Clinically Problem Text: art Fitch pulmicort, albuterol prn follow as per pulrose, assistance appreciated (5) Takotsubo cardiomyopathy Status: Resolved Discussed With: Patient Problem Text: 2d echocardiogram noted Plan/VTE VTE Prophylaxis Ordered?: Yes (lovenox) Plan Diet: Continue Current Activity: Continue Current Medications: Start Steroids Diagnostics: Repeat Labs in AM Levaquin started, prednisone started. Continue monitoring for fevers. Patient wishes to be discharged on a weekday so that she has access to health care providers if needed. VS, I&O, 24H, Fishbone Vital Signs/I&O Vital Signs Date Time Temp Pulse Resp B/P (MAP) Pulse Ox O2 Delivery O2 Flow Rate FiO2 02/01/17 09:40 Nasal Cannula 2.0 02/01/17 06:00 98.7 89 20 123/61 (81) 95 I&O- Last 24 Hours up to 6 AM 02/01/17 05:59 Intake Total 2760 ml Output Total 1850 ml Balance 910 ml Laboratory Data 24H LABS Laboratory Tests 2 01/31/17 16:08: Microbiology Microbiology 01/27/17 Blood Culture - Preliminary, Resulted No Growth after 72 hours. All specime... 01/27/17 Blood Culture - Final, Complete NO GROWTH AFTER 5 DAYS 01/23/17 Blood Culture - Final, Complete NO GROWTH AFTER 5 DAYS 01/23/17 Blood Culture - Final, Complete NO GROWTH AFTER 5 DAYS 01/28/17 Gastrointestinal Tract Panel (PCR) - Final, Complete 01/28/17 Stool Occult Blood ([facility]SHAN) - Final, Complete 01/25/17 Clostridium difficile (PCR) - Final, Complete 01/23/17 Respiratory Virus Panel (PCR) ([facility]) - Final, Complete 01/27/17 Urine Culture - Final, Complete DENITA LE MD February 01, 2017 11:28
--- NOTE | 2017-02-01 14:19 | IPN ---
DATE: 02/01/2017 Esperanza seems to be doing a little better today. She is in a better mood. She is on prednisone 5 mg daily and Levaquin without any problems. She has some diarrhea. Cough is minimal. Shortness of breath slightly better. Laboratories: White count is 5.1, hemoglobin 11.1, hematocrit 33.2 and platelets 220. Sed rate 17. All labs were done today. Urine Legionella and Pneumococcus antigen are pending. CT of the chest showed increased bilateral interstitial infiltrates of both lungs, right greater than left. On physical exam, temperature is 98.7, pulse 89, respirations 20, blood pressure 123/61, and oxygen saturation 95% on 2 liters nasal cannula. Heart: Normal S1, S2. No murmurs. Lungs: Crackles at both bases. Decreased air entry. Abdomen: Soft, nontender. Extremities: No edema. IMPRESSION: 1. Bilateral interstitial pneumonia on by mouth Levaquin to cover for atypicals as well as typical community-acquired pneumonia. Urine Legionella and pneumococcal antigen are pending. 2. Chronic obstructive pulmonary disease (COPD) exacerbation. The patient has significant bullous disease on her chest CT, currently on prednisone 5 mg and oxygen. 3. Crohn's disease, seems to be stable. PLAN: Continue current management of Levaquin 750 mg daily, prednisone 5 mg and check on urine Legionella antigen and Pneumococcus antigen. MTDD
[2017-02-01 14:49] VITALS: BP 125/60
[2017-02-01 15:41] VITALS: O2SAT 91
[2017-02-01 15:42] VITALS: O2SAT 85
[2017-02-01] MEDS: ACETAMINOPHEN TAB 650MG DOSE (2X325MG) PO PRN (15:44)
[2017-02-01 16:01] VITALS: O2SAT 85
[2017-02-01] MEDS: LevoFLOXacin 750 MG TABLET PO SCH (17:02)
[2017-02-01 22:00] VITALS: BP 128/59
[2017-02-02 06:00] VITALS: BP 115/56
[2017-02-02] MEDS: IPRATROPIUM 0.5MG/ALBUTEROL 2.5MG INH SOL UD 3ML (DUONEB)(J7620) NEB SCH ×4 (07:54→20:00)
[2017-02-02] MEDS: BUDESONIDE 0.5 MG/2 ML INHALATION SUSPENSION INH SCH ×2 (07:54→19:30)
[2017-02-02] MEDS: ADVAIR DISKUS 500/50 INH PWD INH SCH ×2 (07:54→19:30)
[2017-02-02] MEDS: CHOLESTYRAMINE 4 GM PWD PKT PO SCH ×3 (07:57→17:18)
--- NOTE | 2017-02-02 08:54 | IPNPDOC ---
Subjective Date Seen The patient was seen on 02/02/17. Subjective Chief Complaint/HPI The patient is a 71-year-old female admitted with a reason for visit of Acute Respiratory Failure W/Hypoxia. General: Denies: ROS Unobtainable, Chills, Night Sweats, Fatigue, Malaise, Normal Appetite, Other Symptoms Constitutional: Denies: Chills, Fever, Malaise, Night Sweats, Weakness, Fatigue , Weight Loss, Lethargy, Other Eyes: Denies: Pain, Vision change, Conjunctivae inflammation, Eyelid inflammation, Redness, Other ENT: Denies: Head Aches, Ear Pain, Dysphagia, Sinus Congestion, Post Nasal Drip , Sore Throat, Epistaxis, Other Symptoms Skin: Denies: Rash, Lesions, Jaundice, Bruising, Itching, Dry, Breakdown, Nail Changes, Other Pulmonary: Denies: Dyspnea, Cough, Pleuritic Chest Pain, Other Symptoms Cardiovascular: Denies: Chest Pain, Palpitations, Orthopnea, Paroxysmal Noc. Dyspnea, Edema, Lt Headedness, Other Symptoms Gastrointestinal: Denies: Nausea, Vomiting, Abdominal Pain, Diarrhea, Constipation, Melena, Hematochezia, Other Symptoms Genitourinary: Denies: Dysuria, Frequency, Incontinence, Hematuria, Retention, Other Symptoms Objective Physical Examination General Exam: Positive: Alert, Cooperative, No Acute Distress Eye Exam: Positive: PERRLA, Conjunctiva & lids normal, EOMI, Negative: Sclera icteric ENT Exam: Positive: Atraumatic, Mucous membr. moist/pink Neck Exam: Positive: Supple Chest Exam: Positive: Clear to auscultation, Normal air movement Heart Exam: Positive: Rate Normal Abdomen Exam: Positive: Normal bowel sounds, Soft, Negative: Tenderness Extremity Exam: Negative: Edema Psych Exam: Positive: Oriented x 3 Assessment /Plan Problems (1) Fever Status: Acute Discussed With: Patient Problem Specific Plan: Consult Specialist, Monitor Clinically, Repeat Labs, Repeat Tests Problem Text: unclear etiology ct abd unrevealing - reported pna ct chest noted id c/s appreciated levaquin 750 PO, prednisone 5 qd legionella workup pending (2) Crohns disease Status: Chronic Discussed With: Patient Problem Specific Plan: Monitor Clinically, Repeat Tests (3) Protein calorie malnutrition Status: Chronic Discussed With: Patient Problem Specific Plan: Monitor Clinically (4) COPD (chronic obstructive pulmonary disease) Status: Chronic Discussed With: Patient Problem Specific Plan: Consult Specialist, Monitor Clinically Problem Text: Advair, duonebs, pulmicort, albuterol prn follow as per pulrose, assistance appreciated (5) Takotsubo cardiomyopathy Status: Resolved Discussed With: Patient Problem Text: 2d echocardiogram noted Plan/VTE VTE Prophylaxis Ordered?: Yes (lovenox) Plan Diet: Continue Current Activity: Continue Current Medications: Start Steroids Respiratory: Wean Oxygen Diagnostics: Repeat Labs in AM Patient states not on home O2. Will continue to attempt to wean supplemental oxygen. Continue Levaquin, prednisone. Legionella workup pending. Anticipating discharge Saturday02/04/17. VS, I&O, 24H, Fishbone Vital Signs/I&O Vital Signs Date Time Temp Pulse Resp B/P (MAP) Pulse Ox O2 Delivery O2 Flow Rate FiO2 02/02/17 06:00 98.9 94 18 115/56 (75) 90 Nasal Cannula 2.0 I&O- Last 24 Hours up to 6 AM 02/02/17 06:00 Intake Total 2040 ml Output Total 1675 ml Balance 365 ml Laboratory Data Microbiology Microbiology 01/27/17 Blood Culture - Final, Complete NO GROWTH AFTER 5 DAYS 01/27/17 Blood Culture - Final, Complete NO GROWTH AFTER 5 DAYS 01/23/17 Blood Culture - Final, Complete NO GROWTH AFTER 5 DAYS 01/23/17 Blood Culture - Final, Complete NO GROWTH AFTER 5 DAYS 01/28/17 Gastrointestinal Tract Panel (PCR) - Final, Complete 01/28/17 Stool Occult Blood ([facility]AN) - Final, Complete 01/25/17 Clostridium difficile (PCR) - Final, Complete 01/23/17 Respiratory Virus Panel (PCR) ([facility]) - Final, Complete 01/27/17 Urine Culture - Final, Complete DENITA LE MD February 02, 2017 08:54
[2017-02-02] MEDS: FEMHRT PO SCH ×2 (09:00→11:32)
[2017-02-02] MEDS: ASCORBIC ACID 500 MG TAB PO SCH (10:41)
[2017-02-02] MEDS: NYSTATIN 500,000 U/5 ML SUSP UDC SS SCH ×4 (10:41→19:58)
[2017-02-02] MEDS: MULTIVITAMINS/MINERALS THERAP 1 TAB PO SCH (10:42)
[2017-02-02] MEDS: LACTOBACILLUS ACIDOPHILUS CAP (BACID) PO SCH ×3 (10:42→19:58)
[2017-02-02] MEDS: predniSONE 5 MG TAB PO SCH (10:42)
[2017-02-02] MEDS: TOLTERODINE TARTRATE 2 MG LA CAP (DETROL LA) PO SCH (10:42)
[2017-02-02] MEDS: ENOXAPARIN 30 MG/0.3 ML SYR (J1650) SC SCH (10:43)
[2017-02-02 13:03] VITALS: BP 128/61
[2017-02-02 14:00] VITALS: BP 114/53
[2017-02-02] MEDS: LevoFLOXacin 750 MG TABLET PO SCH (17:18)
[2017-02-02] MEDS: ACETAMINOPHEN TAB 650MG DOSE (2X325MG) PO PRN (17:18)
[2017-02-02 22:00] VITALS: BP 128/61
[2017-02-03 06:00] VITALS: BP 118/57
[2017-02-03] MEDS: ACETAMINOPHEN TAB 650MG DOSE (2X325MG) PO PRN (06:51)
[2017-02-03] MEDS: BUDESONIDE 0.5 MG/2 ML INHALATION SUSPENSION INH SCH ×2 (07:35→20:01)
[2017-02-03] MEDS: IPRATROPIUM 0.5MG/ALBUTEROL 2.5MG INH SOL UD 3ML (DUONEB)(J7620) NEB SCH ×4 (07:35→20:00)
[2017-02-03] MEDS: ADVAIR DISKUS 500/50 INH PWD INH SCH ×2 (07:35→20:01)
[2017-02-03] MEDS: CHOLESTYRAMINE 4 GM PWD PKT PO SCH ×3 (07:54→16:57)
--- NOTE | 2017-02-03 08:59 | IPNPDOC ---
Subjective Date Seen The patient was seen on 02/03/17. Subjective Chief Complaint/HPI The patient is a 71-year-old female admitted with a reason for visit of Acute Respiratory Failure W/Hypoxia. General: Denies: ROS Unobtainable, Chills, Night Sweats, Fatigue, Malaise, Normal Appetite, Other Symptoms Constitutional: Denies: Chills, Fever, Malaise, Night Sweats, Weakness, Fatigue , Weight Loss, Lethargy, Other Eyes: Denies: Pain, Vision change, Conjunctivae inflammation, Eyelid inflammation, Redness, Other ENT: Denies: Head Aches, Ear Pain, Dysphagia, Sinus Congestion, Post Nasal Drip , Sore Throat, Epistaxis, Other Symptoms Skin: Reports: Other (complains of itching/intermittent pain with nodule on dorsal aspect of right hand), Denies: Rash, Lesions, Jaundice, Bruising, Itching, Dry, Breakdown, Nail Changes Pulmonary: Reports: Dyspnea, Cough, Denies: Pleuritic Chest Pain, Other Symptoms Cardiovascular: Denies: Chest Pain, Palpitations, Orthopnea, Paroxysmal Noc. Dyspnea, Edema, Lt Headedness, Other Symptoms Gastrointestinal: Denies: Nausea, Vomiting, Abdominal Pain, Diarrhea, Constipation, Melena, Hematochezia, Other Symptoms Objective Physical Examination General Exam: Positive: Alert, Cooperative, No Acute Distress, Other ( pulmonary cachexia) Eye Exam: Positive: PERRLA, Conjunctiva & lids normal, EOMI, Negative: Sclera icteric ENT Exam: Positive: Atraumatic, Mucous membr. moist/pink Neck Exam: Positive: Supple Chest Exam: Positive: Clear to auscultation, Normal air movement Heart Exam: Positive: Rate Normal Abdomen Exam: Positive: Normal bowel sounds, Soft, Negative: Tenderness Extremity Exam: Negative: Edema Skin Exam: Positive: Other skin issue (5 mm flesh color nodule on dorsal aspect of right hand - tender to touch) Psych Exam: Positive: Oriented x 3 Assessment /Plan Problems (1) Fever Status: Acute Discussed With: Patient Problem Specific Plan: Consult Specialist, Monitor Clinically, Repeat Labs, Repeat Tests Problem Text: unclear etiology - has been afebrile now for about 24 hours - tmax 100.1 ct abd unrevealing - reported pna ct chest noted id c/s appreciated levaquin 750 PO, prednisone 5 qd legionella workup pending (2) Crohns disease Status: Chronic Discussed With: Patient Problem Specific Plan: Monitor Clinically, Repeat Tests Problem Text: s/p resections x 2 - follows GI in [place] (3) Protein calorie malnutrition Status: Chronic Discussed With: Patient Problem Specific Plan: Monitor Clinically Problem Text: pulmonary cachexia (4) COPD (chronic obstructive pulmonary disease) Status: Chronic Discussed With: Patient Problem Specific Plan: Consult Specialist, Monitor Clinically Problem Text: Advair, duonebs, pulmicort, albuterol prn follow as per pulm, assistance appreciated she is not o2 dependent at baseline wean O2 (5) Takotsubo cardiomyopathy Status: Resolved Discussed With: Patient Problem Text: 2d echocardiogram noted Plan/VTE VTE Prophylaxis Ordered?: Yes (lovenox) Plan Diet: Continue Current Activity: Continue Current Medications: Start Steroids Respiratory: Wean Oxygen Diagnostics: Repeat Labs in AM wean O2, home services? id f/u - d/c with abx? anxiolytics? VS, I&O, 24H, Fishbone Vital Signs/I&O Vital Signs Date Time Temp Pulse Resp B/P (MAP) Pulse Ox O2 Delivery O2 Flow Rate FiO2 02/03/17 07:45 98.2 02/03/17 06:00 94 18 118/57 (77) 96 Nasal Cannula 02/02/17 21:30 2.0 I&O- Last 24 Hours up to 6 AM 02/03/17 06:00 Intake Total 1600 ml Output Total 1500 ml Balance 100 ml Laboratory Data Microbiology Microbiology 01/27/17 Blood Culture - Final, Complete NO GROWTH AFTER 5 DAYS 01/27/17 Blood Culture - Final, Complete NO GROWTH AFTER 5 DAYS 01/28/17 Gastrointestinal Tract Panel (PCR) - Final, Complete 01/28/17 Stool Occult Blood ([facility]AN) - Final, Complete 01/25/17 Clostridium difficile (PCR) - Final, Complete 01/27/17 Urine Culture - Final, Complete DENITA LE MD February 03, 2017 08:59
[2017-02-03] MEDS: LACTOBACILLUS ACIDOPHILUS CAP (BACID) PO SCH ×3 (09:54→20:23)
[2017-02-03] MEDS: ASCORBIC ACID 500 MG TAB PO SCH (09:54)
[2017-02-03] MEDS: TOLTERODINE TARTRATE 2 MG LA CAP (DETROL LA) PO SCH (09:54)
[2017-02-03] MEDS: predniSONE 5 MG TAB PO SCH (09:54)
[2017-02-03] MEDS: MULTIVITAMINS/MINERALS THERAP 1 TAB PO SCH (09:55)
[2017-02-03] MEDS: NYSTATIN 500,000 U/5 ML SUSP UDC SS SCH ×4 (09:55→20:24)
[2017-02-03] MEDS: FEMHRT PO SCH (09:56)
[2017-02-03] MEDS: ENOXAPARIN 30 MG/0.3 ML SYR (J1650) SC SCH (09:56)
[2017-02-03 14:00] VITALS: BP 126/59
[2017-02-03] MEDS: LevoFLOXacin 750 MG TABLET PO SCH (16:57)
[2017-02-03 22:00] VITALS: BP 126/58
[2017-02-03] MEDS ORDERED: diphenhydrAMINE 25 MG CAP PO ONE (22:15)
[2017-02-04 06:00] VITALS: BP 135/61
[2017-02-04] MEDS: IPRATROPIUM 0.5MG/ALBUTEROL 2.5MG INH SOL UD 3ML (DUONEB)(J7620) NEB SCH ×4 (07:56→19:46)
[2017-02-04] MEDS: ADVAIR DISKUS 500/50 INH PWD INH SCH ×2 (07:56→19:46)
[2017-02-04] MEDS: BUDESONIDE 0.5 MG/2 ML INHALATION SUSPENSION INH SCH ×2 (07:56→19:46)
[2017-02-04] MEDS: CHOLESTYRAMINE 4 GM PWD PKT PO SCH ×3 (08:19→17:06)
[2017-02-04] MEDS: MULTIVITAMINS/MINERALS THERAP 1 TAB PO SCH (08:20)
[2017-02-04] MEDS: NYSTATIN 500,000 U/5 ML SUSP UDC SS SCH ×4 (08:20→20:30)
[2017-02-04] MEDS: ENOXAPARIN 30 MG/0.3 ML SYR (J1650) SC SCH (08:20)
[2017-02-04] MEDS: predniSONE 5 MG TAB PO SCH (08:20)
[2017-02-04] MEDS: ASCORBIC ACID 500 MG TAB PO SCH (08:20)
[2017-02-04] MEDS: LACTOBACILLUS ACIDOPHILUS CAP (BACID) PO SCH ×3 (08:20→20:30)
[2017-02-04] MEDS: FEMHRT PO SCH (08:20)
[2017-02-04] MEDS: TOLTERODINE TARTRATE 2 MG LA CAP (DETROL LA) PO SCH (08:20)
[2017-02-04] MEDS: ALPRAZolam 0.25 MG TAB PO SCH ×2 (09:39→20:30)
--- NOTE | 2017-02-04 10:34 | IPNPDOC ---
Subjective Date Seen The patient was seen on 02/04/17. Subjective Chief Complaint/HPI The patient is a 71-year-old female admitted with a reason for visit of Acute Respiratory Failure W/Hypoxia. General: Denies: ROS Unobtainable, Chills, Night Sweats, Fatigue, Malaise, Normal Appetite, Other Symptoms Constitutional: Denies: Chills, Fever, Malaise, Night Sweats, Weakness, Fatigue , Weight Loss, Lethargy, Other Eyes: Denies: Pain, Vision change, Conjunctivae inflammation, Eyelid inflammation, Redness, Other ENT: Denies: Head Aches, Ear Pain, Dysphagia, Sinus Congestion, Post Nasal Drip , Sore Throat, Epistaxis, Other Symptoms Skin: Denies: Rash, Lesions, Jaundice, Bruising, Itching, Dry, Breakdown, Nail Changes, Other Pulmonary: Denies: Dyspnea, Cough, Pleuritic Chest Pain, Other Symptoms Cardiovascular: Denies: Chest Pain, Palpitations, Orthopnea, Paroxysmal Noc. Dyspnea, Edema, Lt Headedness, Other Symptoms Gastrointestinal: Denies: Nausea, Vomiting, Abdominal Pain, Diarrhea, Constipation, Melena, Hematochezia, Other Symptoms Objective Physical Examination General Exam: Positive: Alert, Cooperative, No Acute Distress, Other ( pulmonary cachexia) Eye Exam: Positive: PERRLA, Conjunctiva & lids normal, EOMI, Negative: Sclera icteric ENT Exam: Positive: Atraumatic, Mucous membr. moist/pink Neck Exam: Positive: Supple Chest Exam: Positive: Clear to auscultation, Normal air movement Heart Exam: Positive: Rate Normal Abdomen Exam: Positive: Normal bowel sounds, Soft, Negative: Tenderness Extremity Exam: Negative: Edema Skin Exam: Positive: Other skin issue (5 mm flesh color nodule on dorsal aspect of right hand - tender to touch) Psych Exam: Positive: Oriented x 3 Assessment /Plan Problems (1) Fever Status: Acute Discussed With: Patient Problem Specific Plan: Consult Specialist, Monitor Clinically, Repeat Labs, Repeat Tests Problem Text: resolved ct abd unrevealing - reported pna ct chest noted id c/s appreciated levaquin 750 PO, prednisone 5 qd legionella workup pending (2) Crohns disease Status: Chronic Discussed With: Patient Problem Specific Plan: Monitor Clinically, Repeat Tests Problem Text: s/p resections x 2 - follows GI in [place] (3) Protein calorie malnutrition Status: Chronic Discussed With: Patient Problem Specific Plan: Monitor Clinically Problem Text: pulmonary cachexia (4) COPD (chronic obstructive pulmonary disease) Status: Chronic Discussed With: Patient Problem Specific Plan: Consult Specialist, Monitor Clinically Problem Text: art Fitch, pulmicort, albuterol prn follow as per pulm, assistance appreciated she is not o2 dependent at baseline wean O2 (5) Takotsubo cardiomyopathy Status: Resolved Discussed With: Patient Problem Text: 2d echocardiogram noted Plan/VTE VTE Prophylaxis Ordered?: Yes (lovenox) Plan Diet: Continue Current Activity: Continue Current Respiratory: Wean Oxygen O2 sats at rest and with ambulation continue abx/steroids started anxiolytics re-assess with anxiolytics but very likely will need oxygen on discharge patient disappointed regarding necessity for home O2 VS, I&O, 24H, Fishbone Vital Signs/I&O Vital Signs Date Time Temp Pulse Resp B/P (MAP) Pulse Ox O2 Delivery O2 Flow Rate FiO2 02/04/17 06:00 99.0 109 24 135/61 (85) 91 Nasal Cannula 2.0 I&O- Last 24 Hours up to 6 AM 02/04/17 06:00 Intake Total 900 ml Output Total 2350 ml Balance -1450 ml Laboratory Data Microbiology Microbiology 01/27/17 Blood Culture - Final, Complete NO GROWTH AFTER 5 DAYS 01/27/17 Blood Culture - Final, Complete NO GROWTH AFTER 5 DAYS 01/28/17 Gastrointestinal Tract Panel (PCR) - Final, Complete 01/28/17 Stool Occult Blood (AFSHAN) - Final, Complete 01/25/17 Clostridium difficile (PCR) - Final, Complete 01/27/17 Urine Culture - Final, Complete DENITA LE MD February 04, 2017 10:34
[2017-02-04] MEDS: ACETAMINOPHEN TAB 650MG DOSE (2X325MG) PO PRN ×2 (13:58→20:35)
[2017-02-04 14:00] VITALS: BP 136/64
[2017-02-04] MEDS: LevoFLOXacin 750 MG TABLET PO SCH (17:06)
--- NOTE | 2017-02-04 21:55 | IPN ---
DATE: 02/04/2017 Mrs. Portillo seems to be doing fairly well. She is frustrated about having to go home on oxygen. She feels that she will never go outside if she has oxygen at home. She feels embarrassed having to use oxygen. She does not have much of a cough. She still has low grade fevers which she feels it is suppressed with Tylenol. Her shortness of breath slightly better. PHYSICAL EXAMINATION: VITAL SIGNS: Temperature is 100.2, pulse 85, respirations 20, blood pressure 136/64, oxygen saturation 90% on 2 liters nasal cannula. HEART: Normal S1, S2, with no murmurs. LUNGS: Diminished airways, a few crackles at bases. ABDOMEN: Soft, nontender. No visceromegaly. EXTREMITIES: No edema. No labs have been done since 01/31/2017, when ESR was 70, CRP was 9.98. Urine Legionella and pneumococcal antigens are still pending. Chest CT done on 01/31/2017, showed emphysematous changes with interstitial fibrosis and superimposed interstitial infiltrate. IMPRESSION: 1. Interstitial pneumonitis with mild mediastinal and right hilar adenopathy. The patient on oral Levaquin 750 mg daily since 01/31/2017, currently day #5, with prednisone 5 mg daily. There is slight improvement. 2. Hypoxia. The patient will probably need home oxygen and she is very upset about that. 3. Chronic obstructive pulmonary disease (COPD) on Pulmicort and DuoNebs. PLAN: I have reassured the patient that she possibly may get off the oxygen if pulmonary function improves when pneumonia resolves, but there is no guarantee, every patient is different. She asked to have her oxygen checked without oxygen tonight and I have asked the nurses' aide to do that. Continue Levaquin for total of 10 days. The patient may be discharged home tomorrow. Would continue until results of Legionella antigen and pneumococcal antigen are back. She will followup with Dr. Patel from pulmonary standpoint. She does not need infectious disease followup.
[2017-02-04 22:00] VITALS: BP 123/59
[2017-02-05 00:30] LABS: ORGANISM ID Not indicated. (.); SPECIMEN SOURCE Urine (.)
[2017-02-05] MEDS: ACETAMINOPHEN TAB 650MG DOSE (2X325MG) PO PRN ×2 (05:45→21:51)
[2017-02-05 06:00] VITALS: BP 118/54
[2017-02-05 06:44] LABS: BASO % 0.3 % (0.0-1.0); EOS # 0.6 K/mm3 (0.0-0.50); EOS % 6.6 % (0.0-3.0); LARGE UNSTAINED CELL # 0.1 K/mm3 (0.0-0.4); LARGE UNSTAINED CELL % 1.6 % (0.0-4.0); LYMPH # 0.8 K/mm3 (1.5-4.5); LYMPH % 9.5 % (24.0-44.0); MEAN CORPUSCULAR HEMOGLOBIN 31.7 pg (27.0-33.0); MEAN CORPUSCULAR HGB CONC 32.1 g/dl (32.0-36.5); MEAN CORPUSCULAR VOLUME 98.7 fl (80.0-96.0); MONO # 0.5 K/mm3 (0.0-0.8); MONO % 5.7 % (0.0-5.0); NEUTROPHILS # 6.5 K/mm3 (1.8-7.7); NEUTROPHILS % 76.3 % (36.0-66.0); PLATELET COUNT, AUTOMATED 575 k/mm3 (150-450); RED CELL DISTRIBUTION WIDTH 12.1 % (11.5-14.5); WHITE BLOOD COUNT 8.5 K/mm3 (4.0-10.0)
[2017-02-05] MEDS: BUDESONIDE 0.5 MG/2 ML INHALATION SUSPENSION INH SCH ×2 (07:21→19:43)
[2017-02-05] MEDS: ADVAIR DISKUS 500/50 INH PWD INH SCH ×2 (07:21→19:42)
[2017-02-05] MEDS: IPRATROPIUM 0.5MG/ALBUTEROL 2.5MG INH SOL UD 3ML (DUONEB)(J7620) NEB SCH ×4 (07:21→19:43)
[2017-02-05 07:29] LABS: ERYTHROCYTE SEDIMENTATION RATE 91 mm/hr (0-30)
[2017-02-05] MEDS: CHOLESTYRAMINE 4 GM PWD PKT PO SCH ×3 (07:43→17:04)
[2017-02-05] MEDS: ENOXAPARIN 30 MG/0.3 ML SYR (J1650) SC SCH (09:00)
[2017-02-05] MEDS: TOLTERODINE TARTRATE 2 MG LA CAP (DETROL LA) PO SCH (09:22)
[2017-02-05] MEDS: ALPRAZolam 0.25 MG TAB PO SCH ×2 (09:22→20:04)
[2017-02-05] MEDS: NYSTATIN 500,000 U/5 ML SUSP UDC SS SCH ×4 (09:22→21:51)
[2017-02-05] MEDS: predniSONE 5 MG TAB PO SCH (09:22)
[2017-02-05] MEDS: ASCORBIC ACID 500 MG TAB PO SCH (09:22)
[2017-02-05] MEDS: LACTOBACILLUS ACIDOPHILUS CAP (BACID) PO SCH ×3 (09:22→21:51)
[2017-02-05] MEDS: FEMHRT PO SCH (09:23)
[2017-02-05] MEDS: MULTIVITAMINS/MINERALS THERAP 1 TAB PO SCH (09:23)
[2017-02-05 14:00] VITALS: BP 128/60
--- NOTE | 2017-02-05 16:39 | IPNPDOC ---
Subjective Date Seen The patient was seen on 02/05/17. Subjective Chief Complaint/HPI The patient is a 71-year-old female admitted with a reason for visit of Acute Respiratory Failure W/Hypoxia. Events since last encounter Wants to go home, having intermittent fevers, does not want supplemental oxygen , no pain, tolerates diet General: Denies: ROS Unobtainable, Chills, Night Sweats, Fatigue, Malaise, Normal Appetite, Other Symptoms Constitutional: Denies: Chills, Fever Pulmonary: Denies: Dyspnea, Cough Cardiovascular: Denies: Chest Pain, Palpitations Gastrointestinal: Denies: Nausea, Vomiting, Abdominal Pain Objective Physical Examination General Exam: Positive: Alert, No Acute Distress, Other (pulmonary cachexia) Eye Exam: Negative: Sclera icteric ENT Exam: Positive: Mucous membr. moist/pink Neck Exam: Positive: Supple Chest Exam: Positive: Clear to auscultation, Diminished, Other (tachypnea) Heart Exam: Positive: Rate Normal Abdomen Exam: Positive: Normal bowel sounds, Soft, Negative: Tenderness Extremity Exam: Negative: Edema Skin Exam: Positive: Other skin issue (5 mm flesh color nodule on dorsal aspect of right hand - tender to touch-verucous) Psych Exam: Positive: Oriented x 3 Assessment /Plan Problems (1) Fever Status: Acute Discussed With: Patient Problem Specific Plan: Consult Specialist, Monitor Clinically, Repeat Labs, Repeat Tests Problem Text: continues ct abd unrevealing - reported pna ct chest noted I discussed with Dr. Usha graham 750 PO, prednisone 5 qd legionella workup pending (2) Crohns disease Status: Chronic Discussed With: Patient Problem Specific Plan: Monitor Clinically, Repeat Tests Problem Text: s/p resections x 2 - follows GI in [place] No abd symptoms (3) Protein calorie malnutrition Status: Chronic Discussed With: Patient Problem Specific Plan: Monitor Clinically Problem Text: pulmonary cachexia (4) COPD (chronic obstructive pulmonary disease) Status: Chronic Discussed With: Patient Problem Specific Plan: Consult Specialist, Monitor Clinically Problem Text: Adv, art, pulmicort, albuterol prn follow as per pulm, assistance appreciated she is not o2 dependent at baseline wean O2 as tolerated- at this point Ibelieve that she will need supplemental oxygen at [facility], but is resistant to this idea Dr. Patel to follow as outpt (5) Takotsubo cardiomyopathy Status: Resolved Discussed With: Patient Problem Text: 2d echocardiogram completed this stay Plan/VTE VTE Prophylaxis Ordered?: Yes (lovenox) Plan Diet: Continue Current Activity: Continue Current Respiratory: Wean Oxygen VS, I&O, 24H, Fishbone Vital Signs/I&O Vital Signs Date Time Temp Pulse Resp B/P (MAP) Pulse Ox O2 Delivery O2 Flow Rate FiO2 02/05/17 15:55 74 Room Air 02/05/17 14:00 99.5 120 20 128/60 (82) 02/04/17 14:00 2.0 I&O- Last 24 Hours up to 6 AM 02/05/17 06:00 Intake Total 1920 ml Output Total 2200 ml Balance -280 ml Laboratory Data 24H LABS Laboratory Tests 2 02/05/17 06:20: White Blood Count 8.5, Red Blood Count 3.77L, Hemoglobin 11.9L, Hematocrit 37.2 , Mean Corpuscular Volume 98.7H, Mean Corpuscular Hemoglobin 31.7, Mean Corpuscular Hemoglobin Concent 32.1, Red Cell Distribution Width 12.1, Platelet Count 575H, Neutrophils (%) (Auto) 76.3H, Lymphocytes (%) (Auto) 9.5L, Monocytes (%) (Auto) 5.7H, Eosinophils (%) (Auto) 6.6H, Basophils (%) (Auto) 0.3 , Neutrophils # (Auto) 6.5, Lymphocytes # (Auto) 0.8L, Monocytes # (Auto) 0.5, Eosinophils # (Auto) 0.6H, Basophils # (Auto) 0.0, Large Unclassified Cells % 1.6, Large Unclassified Cells # 0.1, Erythrocyte Sedimentation Rate 91H, C- Reactive Protein, Quantitative 5.14H CBC/BMP Laboratory Tests 02/05/17 06:20 Red Blood Count 3.77 L, Mean Corpuscular Volume 98.7 H, Mean Corpuscular Hemoglobin 31.7, Mean Corpuscular Hemoglobin Concent 32.1, Red Cell Distribution Width 12.1, Neutrophils (%) (Auto) 76.3 H, Lymphocytes (%) (Auto) 9.5 L, Monocytes (%) (Auto) 5.7 H, Eosinophils (%) (Auto) 6.6 H, Basophils (%) ( Auto) 0.3, Neutrophils # (Auto) 6.5, Lymphocytes # (Auto) 0.8 L, Monocytes # ( Auto) 0.5, Eosinophils # (Auto) 0.6 H, Basophils # (Auto) 0.0 Microbiology Microbiology 01/27/17 Blood Culture - Final, Complete NO GROWTH AFTER 5 DAYS 01/27/17 Blood Culture - Final, Complete NO GROWTH AFTER 5 DAYS 01/28/17 Gastrointestinal Tract Panel (PCR) - Final, Complete 01/28/17 Stool Occult Blood (AFSHAN) - Final, Complete 01/27/17 Urine Culture - Final, Complete TA BRYSON MD February 05, 2017 16:39
[2017-02-05] MEDS: LevoFLOXacin 750 MG TABLET PO SCH (17:04)
--- NOTE | 2017-02-05 18:45 | REP ---
Chest x-ray: Two views: History: Fever. Comparison study: 01/27/2017. Findings: The lungs remain somewhat hyperinflated with diffuse interstitial fibrosis pattern again seen essentially unchanged. Heart is at the upper range of normal in size unchanged from prior study. There is a mild pectus deformity seen on the lateral radiograph. Diffuse osteopenia is noted. Thoracic vertebral body heights are preserved. Emphysematous changes and oligemia are again noted in the upper lobes. Impression: Diffuse interstitial fibrosis pattern again noted. Emphysematous changes. Mild cardiac enlargement. No acute infiltrate seen. Signed by Miguel Bello MD 02/06/2017 08:06 A
[2017-02-05 21:54] VITALS: BP 112/50
[2017-02-06 06:00] VITALS: BP 125/58
[2017-02-06] MEDS: IPRATROPIUM 0.5MG/ALBUTEROL 2.5MG INH SOL UD 3ML (DUONEB)(J7620) NEB SCH ×4 (08:00→20:00)
[2017-02-06] MEDS: CHOLESTYRAMINE 4 GM PWD PKT PO SCH ×3 (08:32→17:53)
[2017-02-06] MEDS: ASCORBIC ACID 500 MG TAB PO SCH (08:33)
[2017-02-06] MEDS: FEMHRT PO SCH (08:33)
[2017-02-06] MEDS: LACTOBACILLUS ACIDOPHILUS CAP (BACID) PO SCH ×3 (08:33→20:50)
[2017-02-06] MEDS: ENOXAPARIN 30 MG/0.3 ML SYR (J1650) SC SCH (08:33)
[2017-02-06] MEDS: ALPRAZolam 0.25 MG TAB PO SCH ×2 (08:33→22:09)
[2017-02-06] MEDS: NYSTATIN 500,000 U/5 ML SUSP UDC SS SCH ×4 (08:33→20:51)
[2017-02-06] MEDS: MULTIVITAMINS/MINERALS THERAP 1 TAB PO SCH (08:33)
[2017-02-06] MEDS: predniSONE 5 MG TAB PO SCH (08:33)
[2017-02-06] MEDS: TOLTERODINE TARTRATE 2 MG LA CAP (DETROL LA) PO SCH (08:33)
[2017-02-06] MEDS: ADVAIR DISKUS 500/50 INH PWD INH SCH ×2 (08:36→20:20)
[2017-02-06] MEDS: BUDESONIDE 0.5 MG/2 ML INHALATION SUSPENSION INH SCH ×2 (08:36→11:33)
--- NOTE | 2017-02-06 14:59 | IPNPDOC ---
Subjective Date Seen The patient was seen on 02/06/17. Subjective Chief Complaint/HPI The patient is a 71-year-old female admitted with a reason for visit of Acute Respiratory Failure W/Hypoxia. Events since last encounter Feeling short of breath after walking to bathroom, no cough, no chest pain, wants to go home, does not want supplemental oxygen or steroids Constitutional: Reports: Fever (intermittent subjective) Pulmonary: Reports: Dyspnea, Denies: Cough Cardiovascular: Denies: Chest Pain, Palpitations Gastrointestinal: Reports: Abdominal Pain, Denies: Nausea, Vomiting Objective Physical Examination General Exam: Positive: Alert, Cooperative, No Acute Distress, Other ( pulmonary cachexia) Eye Exam: Negative: Sclera icteric ENT Exam: Positive: Mucous membr. moist/pink Neck Exam: Positive: Supple Chest Exam: Positive: Diminished, Other (tachypnea), Negative: Normal air movement Heart Exam: Positive: Rate Normal, Normal S1, Normal S2 Abdomen Exam: Positive: Normal bowel sounds, Soft, Negative: Tenderness Extremity Exam: Negative: Edema Skin Exam: Positive: Other skin issue (5 mm flesh color nodule on dorsal aspect of right hand - tender to touch-verucous) Psych Exam: Positive: Oriented x 3 Assessment /Plan Problems (1) Fever Status: Acute Discussed With: Patient Problem Specific Plan: Consult Specialist, Monitor Clinically, Repeat Labs, Repeat Tests Problem Text: continues- may be related to pulmicort use(?)- patient certainly experiences subjective fever with pulmicort use- so it will be held Will arrange for home oxygen although the patient does not believe she will use it RH factor elevated CCP ordered, rosy pending ct abd unrevealing - reported pna ct chest noted I discussed with Dr. Usha graham 750 PO, prednisone 5 qd legionella workup pending (2) Crohns disease Status: Chronic Discussed With: Patient Problem Specific Plan: Monitor Clinically, Repeat Tests Problem Text: s/p resections x 2 - follows GI in [place] No abd symptoms (3) Protein calorie malnutrition Status: Chronic Discussed With: Patient Problem Specific Plan: Monitor Clinically Problem Text: pulmonary cachexia Patient using ensure as a supplement (4) COPD (chronic obstructive pulmonary disease) Status: Chronic Discussed With: Patient Problem Specific Plan: Consult Specialist, Monitor Clinically Problem Text: Advair, duonebs, albuterol prn follow as per pulm, assistance appreciated she is not o2 dependent at baseline wean O2 as tolerated- at this point Ibelieve that she will need supplemental oxygen at [facility], but is resistant to this idea Dr. Patel to follow as outpt- she will be able to see her as early as next week - i updated her today (5) Takotsubo cardiomyopathy Status: Resolved Discussed With: Patient Problem Text: 2d echocardiogram completed this stay Plan/VTE VTE Prophylaxis Ordered?: Yes (lovenox) Plan Diet: Continue Current Activity: Continue Current Respiratory: Wean Oxygen VS, I&O, 24H, Fishbone Vital Signs/I&O Vital Signs Date Time Temp Pulse Resp B/P (MAP) Pulse Ox O2 Delivery O2 Flow Rate FiO2 02/06/17 14:34 88 Nasal Cannula 1.0 02/06/17 06:00 98.4 125 21 125/58 (80) I&O- Last 24 Hours up to 6 AM 02/06/17 06:00 Intake Total 1680 ml Output Total 1600 ml Balance 80 ml Laboratory Data 24H LABS Laboratory Tests 2 02/06/17 06:05: Erythrocyte Sedimentation Rate 65H, C-Reactive Protein, Quantitative 5.48H, Rheumatoid Factor 42.3H, Syphilis Serology NONREACTIVE 02/06/17 06:10: Microbiology Microbiology 01/27/17 Blood Culture - Final, Complete NO GROWTH AFTER 5 DAYS 01/27/17 Blood Culture - Final, Complete NO GROWTH AFTER 5 DAYS 01/28/17 Gastrointestinal Tract Panel (PCR) - Final, Complete 01/28/17 Stool Occult Blood (AFSHAN) - Final, Complete 01/27/17 Urine Culture - Final, Complete TA BRYSON MD February 06, 2017 14:58
[2017-02-06] MEDS: LevoFLOXacin 750 MG TABLET PO SCH (17:53)
[2017-02-06 22:00] VITALS: BP 112/55
[2017-02-07 06:00] VITALS: BP 101/59
[2017-02-07] MEDS: CHOLESTYRAMINE 4 GM PWD PKT PO SCH ×3 (07:40→17:04)
[2017-02-07] MEDS: IPRATROPIUM 0.5MG/ALBUTEROL 2.5MG INH SOL UD 3ML (DUONEB)(J7620) NEB SCH ×5 (08:00→20:24)
[2017-02-07] MEDS: ADVAIR DISKUS 500/50 INH PWD INH SCH ×2 (08:26→20:25)
[2017-02-07] MEDS: ENOXAPARIN 30 MG/0.3 ML SYR (J1650) SC SCH (09:00)
[2017-02-07] MEDS: FLUTICASONE HFA 220 MCG 12 GM INHALER (FLOVENT) INH SCH ×3 (09:00→20:59)
[2017-02-07] MEDS: TOLTERODINE TARTRATE 2 MG LA CAP (DETROL LA) PO SCH (09:32)
[2017-02-07] MEDS: ASCORBIC ACID 500 MG TAB PO SCH (09:32)
[2017-02-07] MEDS: ALPRAZolam 0.25 MG TAB PO SCH ×2 (09:32→21:54)
[2017-02-07] MEDS: predniSONE 5 MG TAB PO SCH (09:32)
[2017-02-07] MEDS: NYSTATIN 500,000 U/5 ML SUSP UDC SS SCH ×4 (09:32→20:12)
[2017-02-07] MEDS: MULTIVITAMINS/MINERALS THERAP 1 TAB PO SCH (09:32)
[2017-02-07] MEDS: FEMHRT PO SCH (09:32)
[2017-02-07] MEDS: LACTOBACILLUS ACIDOPHILUS CAP (BACID) PO SCH ×3 (09:32→20:12)
[2017-02-07 14:00] VITALS: BP 109/52
[2017-02-07] MEDS ORDERED: CYANOCOBALAMIN 1,000 MCG/ML VIAL (J3420) IM ONE (14:00)
[2017-02-07] MEDS: LevoFLOXacin 750 MG TABLET PO SCH (17:04)
--- NOTE | 2017-02-07 20:03 | IPNPDOC ---
Subjective Date Seen The patient was seen on 02/07/17. Subjective Chief Complaint/HPI The patient is a 71-year-old female admitted with a reason for visit of Acute Respiratory Failure W/Hypoxia. Events since last encounter Wants to go home, willing to try another inhaled steroid, will followup with Jorge. Doesn't want to use supplemental oxygen at home, frustrated at being in hospital but nervous about leaving Constitutional: Denies: Chills Pulmonary: Denies: Dyspnea, Cough Cardiovascular: Denies: Chest Pain, Palpitations Gastrointestinal: Denies: Nausea, Vomiting, Abdominal Pain Objective Physical Examination General Exam: Positive: Alert, No Acute Distress, Other (pulmonary cachexia) Eye Exam: Negative: Sclera icteric ENT Exam: Positive: Mucous membr. moist/pink Neck Exam: Positive: Supple Chest Exam: Positive: Diminished, Other (tachypnea), Negative: Normal air movement Heart Exam: Positive: Rate Normal, Normal S1, Normal S2 Abdomen Exam: Positive: Normal bowel sounds, Soft, Negative: Tenderness Extremity Exam: Negative: Edema Skin Exam: Positive: Other skin issue (5 mm flesh color nodule on dorsal aspect of right hand - tender to touch-verucous) Psych Exam: Positive: Oriented x 3 Assessment /Plan Problems (1) Fever Status: Acute Discussed With: Patient Problem Specific Plan: Consult Specialist, Monitor Clinically, Repeat Labs, Repeat Tests Problem Text: continues- may be related to pulmicort use(?)- patient certainly experiences subjective fever with pulmicort use- so it will be held Will arrange for home oxygen although the patient does not believe she will use it- patient willing to use oxygen today to establish her baseline level of need - Case reviewed in general with Dr. Patel. Case discussed with patient and at bedside. RH factor elevated CCP ordered, rosy pending ct abd unrevealing - reported pna ct chest noted I discussed with Dr. Kerr in person- no clear further role in care for now levaquin 750 PO, prednisone 5 qd legionella workup pending (2) Crohns disease Status: Chronic Discussed With: Patient Problem Specific Plan: Monitor Clinically, Repeat Tests Problem Text: s/p resections x 2 - follows GI in [place] No abd symptoms (3) Protein calorie malnutrition Status: Chronic Discussed With: Patient Problem Specific Plan: Monitor Clinically Problem Text: pulmonary cachexia Patient using ensure as a supplement (4) COPD (chronic obstructive pulmonary disease) Status: Chronic Discussed With: Patient Problem Specific Plan: Consult Specialist, Monitor Clinically Problem Text: Advair, duonebs, albuterol prn follow as per pulm, assistance appreciated she is not o2 dependent at baseline wean O2 as tolerated- at this point Ibelieve that she will need supplemental oxygen at home, but is resistant to this idea Dr. Patel to follow as outpt- she will be able to see her as early as next week - i updated her 02/07/17 (5) Takotsubo cardiomyopathy Status: Resolved Discussed With: Patient Problem Text: 2d echocardiogram completed this stay Plan/VTE VTE Prophylaxis Ordered?: Yes (lovenox) Plan Diet: Continue Current Activity: Continue Current Respiratory: Wean Oxygen VS, I&O, 24H, Fishbone Vital Signs/I&O Vital Signs Date Time Temp Pulse Resp B/P (MAP) Pulse Ox O2 Delivery O2 Flow Rate FiO2 02/07/17 17:12 88 Nasal Cannula 3.0 02/07/17 14:20 108 02/07/17 14:00 98.8 18 109/52 (71) I&O- Last 24 Hours up to 6 AM 02/07/17 05:59 Intake Total 1800 ml Output Total 1500 ml Balance 300 ml Laboratory Data Microbiology Microbiology 01/28/17 Gastrointestinal Tract Panel (PCR) - Final, Complete 01/28/17 Stool Occult Blood (AFSHAN) - Final, Complete TA BRYSON MD February 07, 2017 20:03
[2017-02-07 20:25] VITALS: BP 139/61
[2017-02-08 06:25] VITALS: BP 126/60
[2017-02-08] MEDS: CHOLESTYRAMINE 4 GM PWD PKT PO SCH ×3 (07:39→12:44)
[2017-02-08] MEDS: ENOXAPARIN 30 MG/0.3 ML SYR (J1650) SC SCH (09:00)
[2017-02-08] MEDS: ASCORBIC ACID 500 MG TAB PO SCH (09:38)
[2017-02-08] MEDS: LACTOBACILLUS ACIDOPHILUS CAP (BACID) PO SCH (09:38)
[2017-02-08] MEDS: TOLTERODINE TARTRATE 2 MG LA CAP (DETROL LA) PO SCH (09:38)
[2017-02-08] MEDS: predniSONE 5 MG TAB PO SCH (09:38)
[2017-02-08] MEDS: ALPRAZolam 0.25 MG TAB PO SCH (09:38)
[2017-02-08] MEDS: FEMHRT PO SCH (09:38)
[2017-02-08] MEDS: NYSTATIN 500,000 U/5 ML SUSP UDC SS SCH ×3 (09:38→12:44)
[2017-02-08] MEDS: MULTIVITAMINS/MINERALS THERAP 1 TAB PO SCH (09:38)
[2017-02-08] MEDS: ADVAIR DISKUS 500/50 INH PWD INH SCH (09:59)
[2017-02-08] MEDS: FLUTICASONE HFA 220 MCG 12 GM INHALER (FLOVENT) INH SCH (09:59)
[2017-02-08] MEDS: IPRATROPIUM 0.5MG/ALBUTEROL 2.5MG INH SOL UD 3ML (DUONEB)(J7620) NEB SCH (11:29)
[2017-02-08] MEDS ORDERED: RISATAB3 PO (12:16)
[2017-02-08] MEDS ORDERED: ALPR0.25 PO (12:16)
[2017-02-08] MEDS ORDERED: FLUT22IN INH (12:16)
[2017-02-08] MEDS ORDERED: LEVA750T PO (12:16)
[2017-02-08] MEDS ORDERED: PRED5TA PO (12:16)
[2017-02-08 14:00] VITALS: BP 140/61
--- NOTE | 2017-02-09 22:57 | DSES ---
DATE OF ADMISSION: 01/23/2017 DATE OF DISCHARGE: 02/08/2017 SPECIALIST INVOLVED IN CARE: Dr. Kerr, Dr. Patel. DISCHARGE DIAGNOSES: 1. Fevers. 2. Crohn's disease. 3. Protein calorie malnutrition. 4. Pulmonary cachexia. 5. Advanced chronic obstructive pulmonary disease (COPD). 6. Chronic hypoxic respiratory failure. 7. Oxygen dependence. 8. Takotsubo cardiomyopathy by history. 9. Interstitial pneumonitis. SUMMARY OF PRESENTATION: This is a 71-year-old who presented with increasing shortness of breath after finishing a steroid taper, and was admitted to the hospitalist service for acute hypoxic hypercapnic respiratory failure. Was somewhat specific about her requirements for treatment. Declined steroids. Initially declined antibiotics. Was found to require oxygen more than anticipated. Had fevers. Was seen in consultation by Dr. Kerr. Was found to have interstitial lung disease. Was seen by Dr. Patel. Improved somewhat during her stay, but certainly had reached a plateau at the time of discharge. On the day of discharge, she has been afebrile since 02/05. She associates that with discontinuing Pulmicort. She is still quite tachypneic. She does have exacerbation from the time of presentation. She is tolerating diet. She is walking short distances and she seems to be accept the possibility that she will require three liters of oxygen 24 hours a day at home. White cell count 8.5, hemoglobin 11.9, and platelets of 575. Erythrocyte sedimentation rate (ESR) most recently is 65. We have elected to stop drawing excessive labs as the patient was finding them bothersome. She does have a repeat urine Legionella antigen pending at the time of discharge. Respiratory panel is negative on the day of discharge. DISCHARGE INSTRUCTIONS: Followup with Dr. Ramos 02/20. Followup with Dr. Patel 02/13. I have discussed the patient's discharge with Dr. Patel today in general. Activity as tolerated. Diet as tolerated. She is to have 24-hour oxygen with portability three liters nasal cannula. DISCHARGE MEDICATIONS: - Xanax 0.25 mg by mouth twice daily, not to exceed two tablets per day; she is given a prescription for 60 - fluticasone two puffs inhaled twice daily - Levaquin 750 mg by mouth daily for five days - prednisone 5 mg by mouth daily - probiotic one tablet by mouth three times a day - Tylenol every four hours as needed - albuterol inhaled every four hours as needed - DuoNeb inhaled four times a day - vitamin C supplement as needed - Atelvia 35 mg by mouth on Wednesdays - calcium 600 mg by mouth daily - Questran 4 grams by mouth before meals - vitamin B12 supplement injected monthly; we did give her a dose of that during her stay. - she continues on Femhrt one tablet by mouth daily - multivitamin tablet daily - Advair inhaled twice daily - Detrol LA 4 mg by mouth daily - vitamin D supplement 3000 units by mouth weekly - Ambien 12.5 mg by mouth daily at bedtime
== END 2017-02-08 14:53 | disposition home or self-care (01) | DRG 189 ==
LOC: M ED 20:56 → M ED INP 21:58 → M MSPAV 01-24 20:52
PROVIDERS: ADMIT Internal Medicine; ATTEND Internal Medicine
DX: J96.01 Acute respiratory failure with hypoxia (principal); E46 Unspecified protein-calorie malnutrition; J44.1 Chronic obstructive pulmonary disease with (acute) exacerbation; R64 Cachexia; K50.90 Crohn's disease, unspecified, without complications; I51.81 Takotsubo syndrome; J84.9 Interstitial pulmonary disease, unspecified; G47.00 Insomnia, unspecified; N32.81 Overactive bladder; M81.8 Other osteoporosis without current pathological fracture; E53.8 Deficiency of other specified B group vitamins; E55.9 Vitamin D deficiency, unspecified; R91.8 Other nonspecific abnormal finding of lung field; Z79.899 Other long term (current) drug therapy; Z79.52 Long term (current) use of systemic steroids; Z87.891 Personal history of nicotine dependence; Z88.0 Allergy status to penicillin; Z88.2 Allergy status to sulfonamides; Z88.8 Allergy status to other drugs, medicaments and biological substances; Z88.5 Allergy status to narcotic agent; Z85.828 Personal history of other malignant neoplasm of skin

== ENCOUNTER → 2017-02-20 | Outpatient (REF) | payer MEDICARE, OTHER ==
[~2017-02-20] MED LIST changes: +ALPR0.25 PO; +FLUT22IN INH; +LEVA750T PO; +PRED5TA PO; +RISATAB3 PO; +TYLE325T5 PO
== END ==
LOC: M LAB REF 16:47
PROVIDERS: ATTEND Emergency Medicine
DX: N76.4 Abscess of vulva (principal)

== ENCOUNTER → 2017-05-24 | Outpatient (REF) | payer MEDICARE, OTHER ==
[~2017-05-24] MED LIST changes: -AVEL1TAB PO; +AVEL1TAB3 PO; -CALC600T10 PO; +CALC600T31 PO; +DETR4CAP; +DETR4CAP PO; -DETR4CAP10; -DETR4CAP10 PO; -LEVA750T PO; +LEVA750T7 PO; -PROA1AER; -PROA1AER INH; +PROAAER10; +PROAAER10 INH
== END ==
LOC: M LAB REF 18:48
PROVIDERS: ATTEND Physician Assistant Medical
DX: N30.01 Acute cystitis with hematuria (principal)

== ENCOUNTER → 2017-09-24 | Outpatient (CLI) | payer MEDICARE, OTHER ==
[~2017-09-24] MED LIST changes: +CALC500T49 PO; +MYRB25TA PO; +PRED1TABL PO; +[UNRECOGNIZED DRUG - CODE] PO
[2017-09-24 18:40] LABS: BASO % 0.2 % (0.0-1.0); EOS % 0.3 % (0.0-3.0); IMMATURE GRANULOCYTE % 0.5 % (0-0); LYMPH # 0.3 10^3/uL (1.5-4.5); LYMPH % 2.1 % (24.0-44.0); MEAN CORPUSCULAR HEMOGLOBIN 31.6 pg (27.0-33.0); MEAN CORPUSCULAR HGB CONC 30.3 g/dl (32.0-36.5); MEAN CORPUSCULAR VOLUME 104.6 fl (80.0-96.0); MONO # 0.3 10^3/uL (0.0-0.8); MONO % 2.1 % (0.0-5.0); NEUTROPHILS # 12.4 10^3/uL (1.8-7.7); NEUTROPHILS % 94.8 % (36.0-66.0); PLATELET COUNT, AUTOMATED 263 10^3/uL (150-450); WHITE BLOOD COUNT 13.1 10^3/uL (4.0-10.0)
[2017-09-24 19:23] LABS: POSITIVE DIFF POS FLAG
[2017-09-24 19:25] LABS: ALBUMIN 3.1 GM/DL (3.2-5.2); ALBUMIN/GLOBULIN RATIO 0.84 (1.00-1.93); ALKALINE PHOSPHATASE 50 U/L (45-117); ALT/SGPT 20 U/L (12-78); ANION GAP 3 MEQ/L (8-16); AST/SGOT 18 U/L (7-37); BILIRUBIN,TOTAL 0.5 MG/DL (0.2-1.0); BLOOD UREA NITROGEN 16 MG/DL (7-18); CALCIUM LEVEL 8.7 MG/DL (8.8-10.2); CARBON DIOXIDE LEVEL 43 MEQ/L (21-32); CHLORIDE LEVEL 96 MEQ/L (98-107); CHOLESTEROL LEVEL 188 MG/DL (<200); CREATININE FOR GFR 0.69 MG/DL (0.55-1.02); GLOMERULAR FILTRATION RATE > 60.0 (>39); GLUCOSE, FASTING 124 MG/DL (83-110); POTASSIUM SERUM 3.9 MEQ/L (3.5-5.1); SODIUM LEVEL 142 MEQ/L (136-145); TOTAL PROTEIN 6.8 GM/DL (6.4-8.2); TRIGLYCERIDES LEVEL 140 MG/DL (<150)
[2017-09-24 19:27] LABS: VITAMIN B12 LEVEL > 2000 PG/ML
[2017-09-24 19:28] LABS: FOLATE 18.2 NG/ML
== END ==
LOC: M ADAMS 15:20
PROVIDERS: ATTEND Emergency Medicine
DX: Z00.00 Encounter for general adult medical examination without abnormal findings (principal); K02.9 Dental caries, unspecified; D51.9 Vitamin B12 deficiency anemia, unspecified

== ENCOUNTER → 2017-09-26 | Outpatient (CLI) | payer MEDICARE, OTHER ==
[2017-09-26 21:31] LABS: ALBUMIN 3.2 GM/DL (3.2-5.2); ALBUMIN/GLOBULIN RATIO 0.94 (1.00-1.93); ALKALINE PHOSPHATASE 50 U/L (45-117); ALT/SGPT 22 U/L (12-78); ANION GAP 3 MEQ/L (8-16); AST/SGOT 18 U/L (7-37); BILIRUBIN,TOTAL 0.4 MG/DL (0.2-1.0); BLOOD UREA NITROGEN 18 MG/DL (7-18); CALCIUM LEVEL 8.8 MG/DL (8.8-10.2); CARBON DIOXIDE LEVEL 42 MEQ/L (21-32); CHLORIDE LEVEL 96 MEQ/L (98-107); CREATININE FOR GFR 0.63 MG/DL (0.55-1.02); GLOMERULAR FILTRATION RATE > 60.0 (>39); GLUCOSE, FASTING 133 MG/DL (83-110); POTASSIUM SERUM 4.1 MEQ/L (3.5-5.1); SODIUM LEVEL 141 MEQ/L (136-145); TOTAL PROTEIN 6.6 GM/DL (6.4-8.2)
[2017-09-26 21:34] LABS: ESTIMATED AVERAGE GLUCOSE 88 MG/DL (60-110)
== END ==
LOC: M ADAMS 15:57
DX: R73.01 Impaired fasting glucose (principal); J81.0 Acute pulmonary edema; J84.10 Pulmonary fibrosis, unspecified; M85.80 Other specified disorders of bone density and structure, unspecified site
CPT/HCPCS: 80053

== ENCOUNTER 2017-10-03 08:36 | Day surgery (SDC) | payer MEDICARE, OTHER ==
[~2017-10-03 08:36] MED LIST changes: -ADV500INH INH; -ALBU17IN INH; -ALPR0.25 PO; -ATELTAB PO; -AVEL1TAB3 PO; -CALC500T49 PO; -CALC600T31 PO; -CALCIUM CITRATE PO; -CHOL4PKT PO; -CYAN1000VL IM; -DETR4CAP; -DETR4CAP PO; -DRIS50002 PO; -DUONSOL INH; -FEMH0.5T PO; -FLUT22IN INH; -FORT600S SC; -IPRASOL4 INH; -LEVA750T7 PO; -LEVO500T PO; -MEDR4PAK PO; +MIDAZOLAM INJ 2 MG/2 ML VIAL (J2250) As Ordered; -MULTTAB4; -MYRB25TA PO; -PRED1TABL PO; -PRED5TA PO; -PROAAER10; -PROAAER10 INH; -QUES4POW PO; -RISATAB3 PO; -TYLE325T5 PO; -VITA-130 PO; -VITA10006 PO; -VITACAP31 PO; -VITAMIN B12 INJ; -VITMTA PO; -ZINC50TA22 PO; -ZOLP12.515; -ZOLP12.515 PO; -[UNRECOGNIZED DRUG - CODE]; -[UNRECOGNIZED DRUG - CODE] PO; -[UNRECOGNIZED DRUG - CODE] PO
[2017-10-03] MEDS: PROPARACAINE 0.5% OPHTH SOL 15ML OS (09:10)
[2017-10-03] MEDS: TROPICAMIDE 1% OPHTH SOLN 2ML OS (09:11)
[2017-10-03] MEDS: OFLOXACIN 0.3 % (OCUFLOX) OPTH SOL 5ML OS (09:11)
[2017-10-03] MEDS: PHENYLEPHRINE 2.5% OPHTH SOL 2ML OS (09:11)
[2017-10-03] MEDS: DUOVISC (0.50ML VISCOAT/0.55ML PROVISC) OPHTH KIT As Ordered ×2 (10:00→10:18)
[2017-10-03] MEDS ORDERED: MIDAZOLAM INJ 2 MG/2 ML VIAL (J2250) As Ordered (10:12)
[2017-10-03] MEDS: POVIDONE-IODINE 5% OPHTH PREP SOL 30ML As Ordered (10:17)
[2017-10-03] MEDS: BALANCED SALT IRRIGATION SOLUTION 500ML BAG (FOR OR EYE MACHINE) As Ordered (10:17)
[2017-10-03] MEDS: ACETYLCHOLINE OPHTH SOLN 1% 2ML (MIOCHOL-E) As Ordered (10:17)
[2017-10-03] MEDS: LIDOCAINE 0.75%/EPINEPHRINE 0.025% IN BSS 1ML SYR INTRACAMERAL (OR ONLY) As Ordered (10:18)
[2017-10-03] MEDS: CEFUROXIME 1MG/0.1ML INTRACAMERAL INJ As Ordered (10:18)
[2017-10-03] MEDS ORDERED: ACETAMINOPHEN TAB 650MG DOSE (2X325MG) PO (11:00)
== END 2017-10-03 11:53 | disposition home or self-care (01) ==
LOC: M SDC 08:36
DX: H25.12 Age-related nuclear cataract, left eye (principal); J44.9 Chronic obstructive pulmonary disease, unspecified; Z99.81 Dependence on supplemental oxygen; K50.90 Crohn's disease, unspecified, without complications; E53.8 Deficiency of other specified B group vitamins; M41.9 Scoliosis, unspecified; M85.80 Other specified disorders of bone density and structure, unspecified site; F41.9 Anxiety disorder, unspecified; M19.90 Unspecified osteoarthritis, unspecified site; Z87.891 Personal history of nicotine dependence; Z88.5 Allergy status to narcotic agent; Z88.0 Allergy status to penicillin; Z88.2 Allergy status to sulfonamides; Z79.899 Other long term (current) drug therapy; Z79.51 Long term (current) use of inhaled steroids; Z79.52 Long term (current) use of systemic steroids
CPT/HCPCS: 66984

== ENCOUNTER 2017-10-10 09:40 | Inpatient (IN) | payer MEDICARE, OTHER ==
[2017-10-10 10:27] LABS: BASO # 0.1 10^3/uL (0.0-0.2); BASO % 0.3 % (0.0-1.0); EOS # 0.2 10^3/uL (0.0-0.50); EOS % 0.8 % (0.0-3.0); HEMATOCRIT 41.6 % (36.0-47.0); HEMOGLOBIN 12.9 g/dl (12.0-16.0); IMMATURE GRANULOCYTE # 0.2 10^3/uL (0-0); IMMATURE GRANULOCYTE % 1.2 % (0-0); LYMPH # 0.6 10^3/uL (1.5-4.5); MEAN CORPUSCULAR HEMOGLOBIN 31.7 pg (27.0-33.0); MEAN CORPUSCULAR VOLUME 102.2 fl (80.0-96.0); MONO # 0.8 10^3/uL (0.0-0.8); MONO % 4.2 % (0.0-5.0); NEUTROPHILS # 16.8 10^3/uL (1.8-7.7); NEUTROPHILS % 90.5 % (36.0-66.0); PLATELET COUNT, AUTOMATED 245 10^3/uL (150-450); RED BLOOD COUNT 4.07 10^6/uL (4.00-5.40); RED CELL DISTRIBUTION WIDTH 12.5 % (11.5-14.5); WHITE BLOOD COUNT 18.5 10^3/uL (4.0-10.0)
[2017-10-10 10:29] LABS: PROTHROMBIN TIME 12.2 SECONDS (12.4-14.5)
[2017-10-10 10:30] LABS: PARTIAL THROMBOPLASTIN TIME 21.5 SECONDS (26.8-37.9)
[2017-10-10 10:32] LABS: D-DIMER QUANT 1274.3 ng/ml (<500)
[2017-10-10] MEDS ORDERED: ASPIRIN 81 MG CHEW TABLET As Ordered (10:34)
[2017-10-10 10:40] LABS: ALBUMIN 3.4 GM/DL (3.2-5.2); ALBUMIN/GLOBULIN RATIO 0.85 (1.00-1.93); ALKALINE PHOSPHATASE 54 U/L (45-117); ALT/SGPT 21 U/L (12-78); ANION GAP 4 MEQ/L (8-16); AST/SGOT 23 U/L (7-37); BILIRUBIN,DIRECT 0.2 MG/DL (0.0-0.2); BILIRUBIN,TOTAL 0.7 MG/DL (0.2-1.0); BLOOD UREA NITROGEN 19 MG/DL (7-18); CALCIUM LEVEL 9.1 MG/DL (8.8-10.2); CARBON DIOXIDE LEVEL 43 MEQ/L (21-32); CHLORIDE LEVEL 94 MEQ/L (98-107); CPK CREATINE PHOSPHOKINASE 51 U/L (26-192); CREATININE FOR GFR 0.61 MG/DL (0.55-1.02); GLOMERULAR FILTRATION RATE > 60.0 (>39); GLUCOSE, FASTING 101 MG/DL (83-110); POTASSIUM SERUM 3.7 MEQ/L (3.5-5.1); SODIUM LEVEL 141 MEQ/L (136-145); TOTAL PROTEIN 7.4 GM/DL (6.4-8.2); TROPONIN I 0.04 NG/ML (< 0.10)
[2017-10-10] MEDS: MORPHINE 2 MG/ML 1ML SYRINGE (J2270) IV ×2 (10:43→13:23)
[2017-10-10] MEDS ORDERED: ASPIRIN 325 MG TAB PO (10:45)
[2017-10-10 10:46] LABS: CK-MB VALUE MASS 3.7 NG/ML (0.0-3.6); MB/CK RELATIVE INDEX 7.25 (< OR =4)
[2017-10-10] MEDS: ASPIRIN 81 MG CHEW TABLET PO (10:47)
[2017-10-10 10:49] LABS: VENOUS BASE EXCESS 18.3 (-2.0-2.0); VENOUS HCO3 47.8 MEQ/L (23.0-27.0); VENOUS O2 SATURATION 60.1 % (60.0-80.0); VENOUS PARTIAL PRESSURE CO2 85.1 mmHg (38.0-50.0); VENOUS PARTIAL PRESSURE O2 31.1 mmHg (30.0-50.0); VENOUS PH 7.367 UNITS (7.330-7.430); VENOUS STANDARD HCO3 41.4 MEQ/L; VENOUS TOTAL CO2 50.4 MEQ/L (24.0-28.0)
[2017-10-10] MEDS ORDERED: ISOVUE-370 76% 100ML VIAL (Q9967) As Ordered (11:21)
[2017-10-10 12:47] LABS: CK-MB VALUE MASS 2.6 NG/ML (0.0-3.6); CPK CREATINE PHOSPHOKINASE 42 U/L (26-192); MB/CK RELATIVE INDEX 6.19 (< OR =4); TROPONIN I 0.04 NG/ML (< 0.10)
[2017-10-10] MEDS: FUROSEMIDE 100 MG/10 ML VIAL (J1940) IV (13:45)
[2017-10-10 14:20] LABS: NT-PRO BNP 677 PG/ML (<125)
[2017-10-10 18:52] LABS: CPK CREATINE PHOSPHOKINASE 54 U/L (26-192); MB/CK RELATIVE INDEX 5.55 (< OR =4); TROPONIN I 0.02 NG/ML (< 0.10)
[2017-10-10] MEDS: ADVAIR HFA 230/21MCG INHALER INH (21:00)
[2017-10-10] MEDS: FUROSEMIDE 40 MG/4 ML VIAL (J1940) IV ×2 (21:00→23:47)
[2017-10-10] MEDS: FLUTICASONE HFA 220 MCG 12 GM INHALER (FLOVENT) INH (21:00)
[2017-10-10] MEDS: prednisoLONE ACET 1% OPHTH SUSP 5ML OS ×2 (21:00→22:30)
[2017-10-10] MEDS: MULTIVITAMINS/MINERALS THERAP 1 TAB PO (21:22)
[2017-10-10] MEDS: OYSTER SHELL CALCIUM 500 MG TAB PO (21:22)
[2017-10-10] MEDS: ASCORBIC ACID 500 MG TAB PO (21:23)
[2017-10-10] MEDS: NITROGLYCERIN 2% OINT 1 GM *U/D* PKT TOP (21:23)
[2017-10-10] MEDS: LISINOPRIL 10 MG TAB PO (21:24)
[2017-10-10] MEDS: CHOLESTYRAMINE 4 GM PWD PKT PO (21:25)
[2017-10-10] MEDS: ALPRAZolam 0.25 MG TAB PO (21:26)
[2017-10-10] MEDS: ACETAMINOPHEN TAB 650MG DOSE (2X325MG) PO (23:47)
[2017-10-11 00:36] LABS: CPK CREATINE PHOSPHOKINASE 69 U/L (26-192); TROPONIN I 0.04 NG/ML (< 0.10)
[2017-10-11 00:37] LABS: CK-MB VALUE MASS 2.8 NG/ML (0.0-3.6); MB/CK RELATIVE INDEX 4.05 (< OR =4)
[2017-10-11] MEDS: FUROSEMIDE 40 MG/4 ML VIAL (J1940) IV ×3 (04:00→12:02)
[2017-10-11] MEDS: traMADol 50 MG TAB PO (05:35)
[2017-10-11] MEDS: CHOLESTYRAMINE 4 GM PWD PKT PO ×2 (07:10→17:51)
[2017-10-11 07:12] LABS: HEMATOCRIT 37.7 % (36.0-47.0); HEMOGLOBIN 11.7 g/dl (12.0-16.0); MEAN CORPUSCULAR HEMOGLOBIN 31.3 pg (27.0-33.0); MEAN CORPUSCULAR VOLUME 100.8 fl (80.0-96.0); PLATELET COUNT, AUTOMATED 242 10^3/uL (150-450); RED BLOOD COUNT 3.74 10^6/uL (4.00-5.40); RED CELL DISTRIBUTION WIDTH 12.7 % (11.5-14.5)
[2017-10-11 07:34] LABS: BLOOD UREA NITROGEN 35 MG/DL (7-18); CALCIUM LEVEL 9.1 MG/DL (8.8-10.2); CHLORIDE LEVEL 91 MEQ/L (98-107); CREATININE FOR GFR 0.95 MG/DL (0.55-1.02); GLUCOSE, FASTING 94 MG/DL (83-110); POTASSIUM SERUM 3.9 MEQ/L (3.5-5.1); SODIUM LEVEL 141 MEQ/L (136-145)
[2017-10-11 07:45] LABS: ANION GAP 5 MEQ/L (8-16); CARBON DIOXIDE LEVEL 45 MEQ/L (21-32)
[2017-10-11 07:59] LABS: GLOMERULAR FILTRATION RATE > 60.0 (>39)
[2017-10-11] MEDS: LISINOPRIL 10 MG TAB PO ×2 (08:23→08:26)
[2017-10-11] MEDS: MULTIVITAMINS/MINERALS THERAP 1 TAB PO (08:23)
[2017-10-11] MEDS: ALPRAZolam 0.25 MG TAB PO ×2 (08:23→22:55)
[2017-10-11] MEDS: predniSONE 5 MG TAB PO (08:23)
[2017-10-11] MEDS: prednisoLONE ACET 1% OPHTH SUSP 5ML OS ×3 (08:24→20:44)
[2017-10-11] MEDS: OYSTER SHELL CALCIUM 500 MG TAB PO (08:24)
[2017-10-11] MEDS: ASCORBIC ACID 500 MG TAB PO (08:24)
[2017-10-11] MEDS: FLUTICASONE HFA 220 MCG 12 GM INHALER (FLOVENT) INH ×2 (08:40→20:56)
[2017-10-11] MEDS: ADVAIR HFA 230/21MCG INHALER INH ×2 (08:40→20:56)
[2017-10-11] MEDS ORDERED: predniSONE 10 MG TAB PO (09:00)
[2017-10-11] MEDS: PERCOCET 5MG/325MG TAB PO (13:22)
[2017-10-11] MEDS ORDERED: IPRATROPIUM 0.5MG/ALBUTEROL 2.5MG INH SOL UD 3ML (DUONEB)(J7620) NEB (15:15)
[2017-10-11] MEDS: IPRATROPIUM 0.5MG/ALBUTEROL 2.5MG INH SOL UD 3ML (DUONEB)(J7620) NEB ×3 (16:16→23:59)
[2017-10-11] MEDS ORDERED: SLF 3 ML SYR IV (16:45)
[2017-10-11] MEDS: ENOXAPARIN 40 MG/0.4 ML SYRINGE (J1650) SC ×2 (17:50→17:58)
[2017-10-11] MEDS: SLF 3 ML SYR IV (20:44)
[2017-10-11] MEDS: BROMFENAC 0.09% OS (20:44)
[2017-10-11] MEDS: EYE OS (20:44)
[2017-10-12] MEDS: IPRATROPIUM 0.5MG/ALBUTEROL 2.5MG INH SOL UD 3ML (DUONEB)(J7620) NEB ×3 (03:48→11:16)
[2017-10-12] MEDS: PERCOCET 5MG/325MG TAB PO ×2 (04:34→18:29)
[2017-10-12 04:54] LABS: HEMATOCRIT 35.8 % (36.0-47.0); HEMOGLOBIN 10.9 g/dl (12.0-16.0); MEAN CORPUSCULAR HEMOGLOBIN 30.8 pg (27.0-33.0); MEAN CORPUSCULAR HGB CONC 30.4 g/dl (32.0-36.5); MEAN CORPUSCULAR VOLUME 101.1 fl (80.0-96.0); PLATELET COUNT, AUTOMATED 220 10^3/uL (150-450); RED BLOOD COUNT 3.54 10^6/uL (4.00-5.40); RED CELL DISTRIBUTION WIDTH 12.8 % (11.5-14.5); WHITE BLOOD COUNT 13.6 10^3/uL (4.0-10.0)
[2017-10-12 05:12] LABS: ANION GAP 3 MEQ/L (8-16); BLOOD UREA NITROGEN 43 MG/DL (7-18); CALCIUM LEVEL 9.2 MG/DL (8.8-10.2); CARBON DIOXIDE LEVEL 45 MEQ/L (21-32); CHLORIDE LEVEL 92 MEQ/L (98-107); CREATININE FOR GFR 0.76 MG/DL (0.55-1.02); GLOMERULAR FILTRATION RATE > 60.0 (>39); GLUCOSE, FASTING 99 MG/DL (83-110); POTASSIUM SERUM 3.6 MEQ/L (3.5-5.1); SODIUM LEVEL 140 MEQ/L (136-145)
[2017-10-12] MEDS: FLUTICASONE HFA 220 MCG 12 GM INHALER (FLOVENT) INH ×2 (08:07→20:01)
[2017-10-12] MEDS: ADVAIR HFA 230/21MCG INHALER INH ×2 (08:07→20:02)
[2017-10-12] MEDS: ASCORBIC ACID 500 MG TAB PO (08:12)
[2017-10-12] MEDS: SLF 3 ML SYR IV (08:12)
[2017-10-12] MEDS: predniSONE 5 MG TAB PO (08:12)
[2017-10-12] MEDS: LISINOPRIL 10 MG TAB PO ×2 (08:13→09:00)
[2017-10-12] MEDS: ALPRAZolam 0.25 MG TAB PO ×2 (08:13→23:34)
[2017-10-12] MEDS: FUROSEMIDE 40 MG TAB PO (08:13)
[2017-10-12] MEDS: OYSTER SHELL CALCIUM 500 MG TAB PO (08:13)
[2017-10-12] MEDS: EYE OS ×2 (08:14→21:18)
[2017-10-12] MEDS: MULTIVITAMINS/MINERALS THERAP 1 TAB PO (08:14)
[2017-10-12] MEDS: prednisoLONE ACET 1% OPHTH SUSP 5ML OS ×3 (08:14→23:35)
[2017-10-12] MEDS: BROMFENAC 0.09% OS ×2 (08:14→21:18)
[2017-10-12] MEDS: CHOLESTYRAMINE 4 GM PWD PKT PO ×2 (11:49→17:36)
[2017-10-12] MEDS: LEVALBUTEROL 1.25 MG/0.5 ML CONCENTRATE NEB INH ×3 (15:22→23:28)
[2017-10-12] MEDS: ENOXAPARIN 40 MG/0.4 ML SYRINGE (J1650) SC (17:39)
[2017-10-13] MEDS: LEVALBUTEROL 1.25 MG/0.5 ML CONCENTRATE NEB INH ×6 (04:00→23:15)
[2017-10-13 05:31] LABS: HEMATOCRIT 36.2 % (36.0-47.0); HEMOGLOBIN 10.9 g/dl (12.0-16.0); MEAN CORPUSCULAR HGB CONC 30.1 g/dl (32.0-36.5); MEAN CORPUSCULAR VOLUME 102.8 fl (80.0-96.0); PLATELET COUNT, AUTOMATED 227 10^3/uL (150-450); RED BLOOD COUNT 3.52 10^6/uL (4.00-5.40); RED CELL DISTRIBUTION WIDTH 12.8 % (11.5-14.5); WHITE BLOOD COUNT 11.8 10^3/uL (4.0-10.0)
[2017-10-13 05:51] LABS: ANION GAP 3 MEQ/L (8-16); BLOOD UREA NITROGEN 41 MG/DL (7-18); CALCIUM LEVEL 8.8 MG/DL (8.8-10.2); CARBON DIOXIDE LEVEL 43 MEQ/L (21-32); CHLORIDE LEVEL 96 MEQ/L (98-107); CREATININE FOR GFR 0.63 MG/DL (0.55-1.02); GLOMERULAR FILTRATION RATE > 60.0 (>39); GLUCOSE, FASTING 101 MG/DL (83-110); MAGNESIUM LEVEL 2.2 MG/DL (1.8-2.4); POTASSIUM SERUM 3.8 MEQ/L (3.5-5.1); SODIUM LEVEL 142 MEQ/L (136-145)
[2017-10-13] MEDS: FLUTICASONE HFA 220 MCG 12 GM INHALER (FLOVENT) INH ×2 (08:55→19:54)
[2017-10-13] MEDS: ADVAIR HFA 230/21MCG INHALER INH ×2 (08:55→19:54)
[2017-10-13] MEDS: LISINOPRIL 10 MG TAB PO (09:00)
[2017-10-13] MEDS: ASCORBIC ACID 500 MG TAB PO (09:32)
[2017-10-13] MEDS: OYSTER SHELL CALCIUM 500 MG TAB PO (09:33)
[2017-10-13] MEDS: predniSONE 5 MG TAB PO ×2 (09:33→18:10)
[2017-10-13] MEDS: FUROSEMIDE 40 MG TAB PO (09:33)
[2017-10-13] MEDS: MULTIVITAMINS/MINERALS THERAP 1 TAB PO (09:33)
[2017-10-13] MEDS: PERCOCET 5MG/325MG TAB PO (09:36)
[2017-10-13] MEDS: prednisoLONE ACET 1% OPHTH SUSP 5ML OS ×3 (09:37→20:55)
[2017-10-13] MEDS: BROMFENAC 0.09% OS ×2 (09:43→20:55)
[2017-10-13] MEDS: EYE OS ×2 (09:43→20:55)
[2017-10-13] MEDS: ALPRAZolam 0.25 MG TAB PO ×2 (09:43→23:01)
[2017-10-13] MEDS ORDERED: methylPREDNISolone INJ 40 MG/1 ML VIAL (J2920) IV ×2 (11:00→18:00)
[2017-10-13] MEDS: CHOLESTYRAMINE 4 GM PWD PKT PO ×2 (12:14→17:30)
[2017-10-13] MEDS: ENOXAPARIN 40 MG/0.4 ML SYRINGE (J1650) SC ×2 (18:00→18:10)
[2017-10-14] MEDS: LEVALBUTEROL 1.25 MG/0.5 ML CONCENTRATE NEB INH ×6 (04:00→23:33)
[2017-10-14 05:45] LABS: HEMATOCRIT 37.4 % (36.0-47.0); HEMOGLOBIN 11.4 g/dl (12.0-16.0); MEAN CORPUSCULAR HEMOGLOBIN 31.9 pg (27.0-33.0); MEAN CORPUSCULAR HGB CONC 30.5 g/dl (32.0-36.5); MEAN CORPUSCULAR VOLUME 104.8 fl (80.0-96.0); PLATELET COUNT, AUTOMATED 238 10^3/uL (150-450); RED BLOOD COUNT 3.57 10^6/uL (4.00-5.40); RED CELL DISTRIBUTION WIDTH 12.5 % (11.5-14.5); WHITE BLOOD COUNT 11.3 10^3/uL (4.0-10.0)
[2017-10-14 06:04] LABS: ANION GAP 3 MEQ/L (8-16); BLOOD UREA NITROGEN 29 MG/DL (7-18); CALCIUM LEVEL 9.1 MG/DL (8.8-10.2); CARBON DIOXIDE LEVEL 43 MEQ/L (21-32); CHLORIDE LEVEL 94 MEQ/L (98-107); CREATININE FOR GFR 0.72 MG/DL (0.55-1.02); GLOMERULAR FILTRATION RATE > 60.0 (>39); GLUCOSE, FASTING 125 MG/DL (83-110); MAGNESIUM LEVEL 2.3 MG/DL (1.8-2.4); POTASSIUM SERUM 3.3 MEQ/L (3.5-5.1); SODIUM LEVEL 140 MEQ/L (136-145)
[2017-10-14] MEDS: LISINOPRIL 10 MG TAB PO ×2 (09:00→10:07)
[2017-10-14] MEDS: ADVAIR HFA 230/21MCG INHALER INH ×2 (09:29→23:34)
[2017-10-14] MEDS: FLUTICASONE HFA 220 MCG 12 GM INHALER (FLOVENT) INH ×2 (09:29→23:32)
[2017-10-14] MEDS: BROMFENAC 0.09% OS ×2 (10:05→23:14)
[2017-10-14] MEDS: prednisoLONE ACET 1% OPHTH SUSP 5ML OS ×2 (10:05→17:01)
[2017-10-14] MEDS: EYE OS ×2 (10:05→23:14)
[2017-10-14] MEDS: ALPRAZolam 0.25 MG TAB PO ×2 (10:06→23:13)
[2017-10-14] MEDS: ACETAMINOPHEN TAB 650MG DOSE (2X325MG) PO (10:06)
[2017-10-14] MEDS: FUROSEMIDE 40 MG TAB PO ×2 (10:06→17:42)
[2017-10-14] MEDS: ASCORBIC ACID 500 MG TAB PO (10:07)
[2017-10-14] MEDS: predniSONE 20 MG TAB PO (10:07)
[2017-10-14] MEDS: MULTIVITAMINS/MINERALS THERAP 1 TAB PO (10:07)
[2017-10-14] MEDS: OYSTER SHELL CALCIUM 500 MG TAB PO (10:08)
[2017-10-14] MEDS ORDERED: FUROSEMIDE 40 MG TAB PO (12:00)
[2017-10-14] MEDS ORDERED: FUROSEMIDE 40 MG/4 ML VIAL (J1940) IV (12:00)
[2017-10-14] MEDS: CHOLESTYRAMINE 4 GM PWD PKT PO ×2 (12:20→17:41)
[2017-10-14] MEDS: SPIRONOLACTONE 25 MG TAB PO (13:53)
[2017-10-14] MEDS: PERCOCET 5MG/325MG TAB PO (13:53)
[2017-10-14] MEDS: POTASSIUM CHLORIDE 10 MEQ SR TABLET PO (13:54)
[2017-10-14] MEDS: ENOXAPARIN 40 MG/0.4 ML SYRINGE (J1650) SC (17:42)
[2017-10-15] MEDS: LEVALBUTEROL 1.25 MG/0.5 ML CONCENTRATE NEB INH ×7 (03:54→20:47)
[2017-10-15 06:53] LABS: CHLORIDE LEVEL 101 MEQ/L (98-107); POTASSIUM SERUM 3.8 MEQ/L (3.5-5.1); SODIUM LEVEL 143 MEQ/L (136-145)
[2017-10-15 06:56] LABS: ANION GAP 1 MEQ/L (8-16); BLOOD UREA NITROGEN 25 MG/DL (7-18); CALCIUM LEVEL 8.5 MG/DL (8.8-10.2); CARBON DIOXIDE LEVEL 41 MEQ/L (21-32); GLUCOSE, FASTING 95 MG/DL (83-110); HEMATOCRIT 33.7 % (36.0-47.0); HEMOGLOBIN 10.2 g/dl (12.0-16.0); MAGNESIUM LEVEL 2.3 MG/DL (1.8-2.4); MEAN CORPUSCULAR HEMOGLOBIN 31.4 pg (27.0-33.0); MEAN CORPUSCULAR HGB CONC 30.3 g/dl (32.0-36.5); MEAN CORPUSCULAR VOLUME 103.7 fl (80.0-96.0); PLATELET COUNT, AUTOMATED 211 10^3/uL (150-450); RED BLOOD COUNT 3.25 10^6/uL (4.00-5.40); RED CELL DISTRIBUTION WIDTH 12.6 % (11.5-14.5); WHITE BLOOD COUNT 9.1 10^3/uL (4.0-10.0)
[2017-10-15 06:59] LABS: CREATININE FOR GFR 0.54 MG/DL (0.55-1.02); GLOMERULAR FILTRATION RATE > 60.0 (>39)
[2017-10-15] MEDS: ADVAIR HFA 230/21MCG INHALER INH ×2 (09:00→23:42)
[2017-10-15] MEDS: FLUTICASONE HFA 220 MCG 12 GM INHALER (FLOVENT) INH ×2 (09:00→23:43)
[2017-10-15] MEDS: OYSTER SHELL CALCIUM 500 MG TAB PO (10:00)
[2017-10-15] MEDS: FUROSEMIDE 40 MG TAB PO ×2 (10:01→17:15)
[2017-10-15] MEDS: LISINOPRIL 10 MG TAB PO (10:01)
[2017-10-15] MEDS: ASCORBIC ACID 500 MG TAB PO (10:01)
[2017-10-15] MEDS: predniSONE 20 MG TAB PO (10:01)
[2017-10-15] MEDS: MULTIVITAMINS/MINERALS THERAP 1 TAB PO (10:02)
[2017-10-15] MEDS: ALPRAZolam 0.25 MG TAB PO ×2 (10:02→23:38)
[2017-10-15] MEDS: PERCOCET 5MG/325MG TAB PO (10:03)
[2017-10-15] MEDS: prednisoLONE ACET 1% OPHTH SUSP 5ML OS ×2 (10:03→21:40)
[2017-10-15] MEDS: BROMFENAC 0.09% OS ×2 (10:04→21:40)
[2017-10-15] MEDS: EYE OS ×2 (10:04→21:40)
[2017-10-15] MEDS: CHOLESTYRAMINE 4 GM PWD PKT PO ×2 (13:09→17:34)
[2017-10-15] MEDS: ENOXAPARIN 40 MG/0.4 ML SYRINGE (J1650) SC (17:35)
[2017-10-16] MEDS: LEVALBUTEROL 1.25 MG/0.5 ML CONCENTRATE NEB INH ×3 (03:26→08:18)
[2017-10-16 05:51] LABS: HEMATOCRIT 32.6 % (36.0-47.0); HEMOGLOBIN 9.9 g/dl (12.0-16.0); MEAN CORPUSCULAR HEMOGLOBIN 31.4 pg (27.0-33.0); MEAN CORPUSCULAR HGB CONC 30.4 g/dl (32.0-36.5); MEAN CORPUSCULAR VOLUME 103.5 fl (80.0-96.0); PLATELET COUNT, AUTOMATED 202 10^3/uL (150-450); RED BLOOD COUNT 3.15 10^6/uL (4.00-5.40); RED CELL DISTRIBUTION WIDTH 12.8 % (11.5-14.5); WHITE BLOOD COUNT 10.1 10^3/uL (4.0-10.0)
[2017-10-16 06:07] LABS: ANION GAP 1 MEQ/L (8-16); BLOOD UREA NITROGEN 28 MG/DL (7-18); CALCIUM LEVEL 8.3 MG/DL (8.8-10.2); CARBON DIOXIDE LEVEL 39 MEQ/L (21-32); CHLORIDE LEVEL 104 MEQ/L (98-107); CREATININE FOR GFR 0.57 MG/DL (0.55-1.02); GLOMERULAR FILTRATION RATE > 60.0 (>39); GLUCOSE, FASTING 98 MG/DL (83-110); MAGNESIUM LEVEL 2.2 MG/DL (1.8-2.4); SODIUM LEVEL 144 MEQ/L (136-145)
[2017-10-16] MEDS: OYSTER SHELL CALCIUM 500 MG TAB PO (09:33)
[2017-10-16] MEDS: LISINOPRIL 10 MG TAB PO (09:33)
[2017-10-16] MEDS: predniSONE 20 MG TAB PO (09:33)
[2017-10-16] MEDS: FUROSEMIDE 40 MG TAB PO ×2 (09:33→17:33)
[2017-10-16] MEDS: ASCORBIC ACID 500 MG TAB PO (09:34)
[2017-10-16] MEDS: ALPRAZolam 0.25 MG TAB PO ×2 (09:34→23:17)
[2017-10-16] MEDS: MULTIVITAMINS/MINERALS THERAP 1 TAB PO (09:34)
[2017-10-16] MEDS: prednisoLONE ACET 1% OPHTH SUSP 5ML OS ×2 (09:34→23:17)
[2017-10-16] MEDS: BROMFENAC 0.09% OS ×2 (09:35→23:16)
[2017-10-16] MEDS: EYE OS ×2 (09:35→23:16)
[2017-10-16] MEDS: ADVAIR HFA 230/21MCG INHALER INH (10:34)
[2017-10-16] MEDS: FLUTICASONE HFA 220 MCG 12 GM INHALER (FLOVENT) INH (10:36)
[2017-10-16] MEDS: CHOLESTYRAMINE 4 GM PWD PKT PO ×2 (11:45→17:33)
[2017-10-16] MEDS: IPRATROPIUM 0.5MG/ALBUTEROL 2.5MG INH SOL UD 3ML (DUONEB)(J7620) NEB ×2 (15:23→19:31)
[2017-10-16] MEDS: PERCOCET 5MG/325MG TAB PO (16:05)
[2017-10-16] MEDS: ENOXAPARIN 40 MG/0.4 ML SYRINGE (J1650) SC (17:34)
[2017-10-17] MEDS: FLUTICASONE HFA 220 MCG 12 GM INHALER (FLOVENT) INH ×2 (00:32→08:25)
[2017-10-17] MEDS: ADVAIR HFA 230/21MCG INHALER INH ×2 (00:33→08:25)
[2017-10-17] MEDS: IPRATROPIUM 0.5MG/ALBUTEROL 2.5MG INH SOL UD 3ML (DUONEB)(J7620) NEB ×3 (05:58→13:14)
[2017-10-17 06:44] LABS: HEMATOCRIT 34.8 % (36.0-47.0); HEMOGLOBIN 10.6 g/dl (12.0-16.0); MEAN CORPUSCULAR HEMOGLOBIN 31.3 pg (27.0-33.0); MEAN CORPUSCULAR HGB CONC 30.5 g/dl (32.0-36.5); MEAN CORPUSCULAR VOLUME 102.7 fl (80.0-96.0); PLATELET COUNT, AUTOMATED 225 10^3/uL (150-450); RED BLOOD COUNT 3.39 10^6/uL (4.00-5.40); RED CELL DISTRIBUTION WIDTH 12.9 % (11.5-14.5); WHITE BLOOD COUNT 11.1 10^3/uL (4.0-10.0)
[2017-10-17 07:07] LABS: ANION GAP 3 MEQ/L (8-16); BLOOD UREA NITROGEN 28 MG/DL (7-18); CALCIUM LEVEL 8.2 MG/DL (8.8-10.2); CARBON DIOXIDE LEVEL 37 MEQ/L (21-32); CHLORIDE LEVEL 104 MEQ/L (98-107); CREATININE FOR GFR 0.55 MG/DL (0.55-1.02); GLOMERULAR FILTRATION RATE > 60.0 (>39); GLUCOSE, FASTING 89 MG/DL (83-110); MAGNESIUM LEVEL 2.1 MG/DL (1.8-2.4); POTASSIUM SERUM 3.6 MEQ/L (3.5-5.1); SODIUM LEVEL 144 MEQ/L (136-145)
[2017-10-17] MEDS: ALPRAZolam 0.25 MG TAB PO (09:20)
[2017-10-17] MEDS: OYSTER SHELL CALCIUM 500 MG TAB PO (09:20)
[2017-10-17] MEDS: ASCORBIC ACID 500 MG TAB PO (09:20)
[2017-10-17] MEDS: predniSONE 20 MG TAB PO (09:20)
[2017-10-17] MEDS: MULTIVITAMINS/MINERALS THERAP 1 TAB PO (09:22)
[2017-10-17] MEDS: LISINOPRIL 10 MG TAB PO (09:22)
[2017-10-17] MEDS: prednisoLONE ACET 1% OPHTH SUSP 5ML OS (09:22)
[2017-10-17] MEDS: FUROSEMIDE 40 MG TAB PO (09:22)
[2017-10-17] MEDS: BROMFENAC 0.09% OS (09:23)
[2017-10-17] MEDS: EYE OS (09:23)
[2017-10-17] MEDS: CHOLESTYRAMINE 4 GM PWD PKT PO (11:27)
[2017-10-17] MEDS: PERCOCET 5MG/325MG TAB PO (13:08)
== END 2017-10-17 15:32 | disposition home or self-care (01) | DRG 292 ==
LOC: M PCU 10-11 15:00 → M MSPAV 10-16 14:49 → M ED 09:40 → M ED INP 15:26
DX: I11.0 Hypertensive heart disease with heart failure (principal); J96.11 Chronic respiratory failure with hypoxia; J43.9 Emphysema, unspecified; K52.9 Noninfective gastroenteritis and colitis, unspecified; M81.0 Age-related osteoporosis without current pathological fracture; Z87.891 Personal history of nicotine dependence; I51.81 Takotsubo syndrome; D72.829 Elevated white blood cell count, unspecified; Z79.899 Other long term (current) drug therapy; Z79.52 Long term (current) use of systemic steroids; Z88.5 Allergy status to narcotic agent; Z88.0 Allergy status to penicillin; Z88.2 Allergy status to sulfonamides; Z88.8 Allergy status to other drugs, medicaments and biological substances; F41.9 Anxiety disorder, unspecified; E87.6 Hypokalemia; I50.31 Acute diastolic (congestive) heart failure; Z99.81 Dependence on supplemental oxygen; E53.8 Deficiency of other specified B group vitamins; R06.03 Acute respiratory distress

== ENCOUNTER 2017-10-24 15:26 | Inpatient (IN) | payer MEDICARE, OTHER ==
[2017-10-24] MEDS ORDERED: MIDAZOLAM HCL 50 MG in D5W 40 ML IV ×2 (15:45→16:00)
[2017-10-24 15:49] LABS: BASO # 0.1 10^3/uL (0.0-0.2); BASO % 0.5 % (0.0-1.0); EOS # 0.1 10^3/uL (0.0-0.50); EOS % 0.6 % (0.0-3.0); HEMOGLOBIN 12.4 g/dl (12.0-16.0); IMMATURE GRANULOCYTE # 0.8 10^3/uL (0-0); IMMATURE GRANULOCYTE % 4.2 % (0-0); LYMPH # 1.9 10^3/uL (1.5-4.5); LYMPH % 9.5 % (24.0-44.0); MEAN CORPUSCULAR HGB CONC 28.8 g/dl (32.0-36.5); MEAN CORPUSCULAR VOLUME 111.1 fl (80.0-96.0); MONO # 0.6 10^3/uL (0.0-0.8); MONO % 2.9 % (0.0-5.0); NEUTROPHILS # 16.3 10^3/uL (1.8-7.7); NEUTROPHILS % 82.3 % (36.0-66.0); PLATELET COUNT, AUTOMATED 208 10^3/uL (150-450); RED BLOOD COUNT 3.87 10^6/uL (4.00-5.40); RED CELL DISTRIBUTION WIDTH 12.8 % (11.5-14.5); WHITE BLOOD COUNT 19.8 10^3/uL (4.0-10.0)
[2017-10-24 15:53] LABS: INR 1.12; PROTHROMBIN TIME 14.6 SECONDS (12.4-14.5)
[2017-10-24 16:00] LABS: ANION GAP 6 MEQ/L (8-16); BLOOD UREA NITROGEN 31 MG/DL (7-18); CARBON DIOXIDE LEVEL 39 MEQ/L (21-32); CHLORIDE LEVEL 97 MEQ/L (98-107); CPK CREATINE PHOSPHOKINASE 66 U/L (26-192); CREATININE FOR GFR 0.97 MG/DL (0.55-1.02); GLOMERULAR FILTRATION RATE > 60.0 (>39); GLUCOSE, FASTING 103 MG/DL (70-100); POTASSIUM SERUM 5.1 MEQ/L (3.5-5.1); SODIUM LEVEL 142 MEQ/L (136-145); TROPONIN I 0.07 NG/ML (< 0.10)
[2017-10-24 16:01] LABS: CK-MB VALUE MASS 3.7 NG/ML (0.0-3.6)
[2017-10-24 16:02] LABS: ABG BASE EXCESS -12.8 (-2.0-2.0); ABG HCO3 16.6 MEQ/L (22.0-26.0); ABG O2 SATURATION 97.7 % (95.0-99.0); ABG PARTIAL PRESSURE CO2 53.5 mmHg (35.0-45.0); ABG PARTIAL PRESSURE O2 119.6 mmHg (75.0-100.0); ABG STANDARD HCO3 14.5 MEQ/L (22.0-26.0); ABG TOTAL CO2 18.3 MEQ/L (23.0-31.0)
[2017-10-24] MEDS: MIDAZOLAM INJ 2 MG/2 ML VIAL (J2250) IV ×3 (16:04→21:24)
[2017-10-24] MEDS: NS 500 ML IV (16:15)
[2017-10-24] MEDS: NS 1,000 ML IV ×3 (16:45→20:08)
[2017-10-24] MEDS: IPRATROPIUM 0.5MG/ALBUTEROL 2.5MG INH SOL UD 3ML (DUONEB)(J7620) NEB ×2 (17:49→19:44)
[2017-10-24 17:58] LABS: MAGNESIUM LEVEL 2.7 MG/DL (1.8-2.4)
[2017-10-24 18:07] LABS: ALBUMIN 3.4 GM/DL (3.2-5.2); ALBUMIN/GLOBULIN RATIO 0.94 (1.00-1.93); ALKALINE PHOSPHATASE 86 U/L (45-117); ALT/SGPT 45 U/L (12-78); AST/SGOT 39 U/L (7-37); BILIRUBIN,DIRECT 0.2 MG/DL (0.0-0.2); BILIRUBIN,TOTAL 0.6 MG/DL (0.2-1.0); NT-PRO BNP 1220 PG/ML (<125); THYROID STIMULATING HORMONE 0.994 uIU/ML (0.358-3.740)
[2017-10-24] MEDS ORDERED: methylPREDNISolone INJ 125 MG/2 ML VIAL (J2930) As Ordered (18:29)
[2017-10-24] MEDS: SUCCINYLCHOLINE INJ 200 MG/10 ML VIAL (J0330) IV (18:30)
[2017-10-24] MEDS: ETOMIDATE INJ 20MG/10ML VIAL IV (18:30)
[2017-10-24] MEDS: methylPREDNISolone INJ 125 MG/2 ML VIAL (J2930) IV (18:38)
[2017-10-24] MEDS ORDERED: SUCCINYLCHOLINE 100 MG/5 ML SYRINGE (J0330) (19:14)
[2017-10-24] MEDS ORDERED: ETOMIDATE INJ 20MG/10ML VIAL (19:14)
[2017-10-24 20:13] LABS: ABG HCO3 30.4 MEQ/L (22.0-26.0); ABG O2 SATURATION 98.2 % (95.0-99.0); ABG STANDARD HCO3 27.1 MEQ/L (22.0-26.0); ABG TOTAL CO2 32.3 MEQ/L (23.0-31.0); ABG pH (ARTERIAL) 7.309 UNITS (7.350-7.450)
[2017-10-24] MEDS: MEROPENEM INJ 1 GM in APPROPRIATE DILUENT 1 EA IV (20:14)
[2017-10-24 20:21] LABS: CENTRAL VEN O2 SATURATION 77.7 %
[2017-10-24] MEDS: VANCOMYCIN HCL 1,000 MG, VIAL MATE ADAPTER 1 EACH in D5W 250 ML IV (20:30)
[2017-10-24 21:06] LABS: ALT/SGPT 88 U/L (12-78); ANION GAP 5 MEQ/L (8-16); AST/SGOT 100 U/L (7-37); BLOOD UREA NITROGEN 35 MG/DL (7-18); CALCIUM LEVEL 7.9 MG/DL (8.8-10.2); CARBON DIOXIDE LEVEL 35 MEQ/L (21-32); CHLORIDE LEVEL 105 MEQ/L (98-107); CREATININE FOR GFR 0.78 MG/DL (0.55-1.02); GLOMERULAR FILTRATION RATE > 60.0 (>39); GLUCOSE, FASTING 104 MG/DL (70-100); POTASSIUM SERUM 4.3 MEQ/L (3.5-5.1); SODIUM LEVEL 145 MEQ/L (136-145)
[2017-10-24 21:07] LABS: ALBUMIN 2.7 GM/DL (3.2-5.2); ALBUMIN/GLOBULIN RATIO 0.82 (1.00-1.93); ALKALINE PHOSPHATASE 63 U/L (45-117); BILIRUBIN,TOTAL 0.7 MG/DL (0.2-1.0); CK-MB VALUE MASS 6.7 NG/ML (0.0-3.6); CPK CREATINE PHOSPHOKINASE 120 U/L (26-192); MB/CK RELATIVE INDEX 5.58 (< OR =4); TROPONIN I 0.14 NG/ML (< 0.10)
[2017-10-24] MEDS: VANCOMYCIN HCL 500 MG in D5W MINI-BAG PLUS 100 ML IV (21:29)
[2017-10-24] MEDS: CHLORHEXIDINE ORAL RINSE 0.12%/15ML 120ML BOTTLE MT (22:25)
[2017-10-25] MEDS: methylPREDNISolone INJ 125 MG/2 ML VIAL (J2930) IV ×4 (00:40→17:21)
[2017-10-25] MEDS: MORPHINE 2 MG/ML 1ML SYRINGE (J2270) IV ×6 (00:41→23:19)
[2017-10-25] MEDS: MIDAZOLAM INJ 2 MG/2 ML VIAL (J2250) IV ×5 (00:41→10:04)
[2017-10-25] MEDS: MEROPENEM INJ 1 GM in APPROPRIATE DILUENT 1 EA IV ×3 (01:54→17:21)
[2017-10-25] MEDS: NS 1,000 ML IV (02:56)
[2017-10-25 03:40] LABS: CK-MB VALUE MASS 6.2 NG/ML (0.0-3.6); CPK CREATINE PHOSPHOKINASE 92 U/L (26-192); MB/CK RELATIVE INDEX 6.73 (< OR =4); TROPONIN I 0.22 NG/ML (< 0.10)
[2017-10-25 05:30] LABS: HEMATOCRIT 29.1 % (36.0-47.0); MEAN CORPUSCULAR HEMOGLOBIN 31.2 pg (27.0-33.0); MEAN CORPUSCULAR HGB CONC 30.6 g/dl (32.0-36.5); MEAN CORPUSCULAR VOLUME 102.1 fl (80.0-96.0); PLATELET COUNT, AUTOMATED 140 10^3/uL (150-450); RED BLOOD COUNT 2.85 10^6/uL (4.00-5.40); RED CELL DISTRIBUTION WIDTH 12.8 % (11.5-14.5); WHITE BLOOD COUNT 15.7 10^3/uL (4.0-10.0)
[2017-10-25 05:41] LABS: HEMOGLOBIN 8.9 g/dl (12.0-16.0)
[2017-10-25 05:50] LABS: ABG BASE EXCESS 6.1 (-2.0-2.0); ABG HCO3 32.7 MEQ/L (22.0-26.0); ABG O2 SATURATION 96.4 % (95.0-99.0); ABG PARTIAL PRESSURE CO2 58.6 mmHg (35.0-45.0); ABG TOTAL CO2 34.5 MEQ/L (23.0-31.0); ABG pH (ARTERIAL) 7.365 UNITS (7.350-7.450)
[2017-10-25 05:55] LABS: ALBUMIN 2.2 GM/DL (3.2-5.2); ANION GAP 2 MEQ/L (8-16); BLOOD UREA NITROGEN 37 MG/DL (7-18); CALCIUM LEVEL 7.1 MG/DL (8.8-10.2); CARBON DIOXIDE LEVEL 35 MEQ/L (21-32); CHLORIDE LEVEL 108 MEQ/L (98-107); CREATININE FOR GFR 0.76 MG/DL (0.55-1.02); GLOMERULAR FILTRATION RATE > 60.0 (>39); GLUCOSE, FASTING 109 MG/DL (70-100); MAGNESIUM LEVEL 1.6 MG/DL (1.8-2.4); PHOSPHORUS LEVEL 1.5 MG/DL (2.5-4.9); POTASSIUM SERUM 3.8 MEQ/L (3.5-5.1); SODIUM LEVEL 145 MEQ/L (136-145)
[2017-10-25] MEDS: PANTOPRAZOLE 40MG INJ (PROTONIX) (C9113) IV (07:37)
[2017-10-25] MEDS: CHLORHEXIDINE ORAL RINSE 0.12%/15ML 120ML BOTTLE MT ×2 (07:38→20:44)
[2017-10-25] MEDS: VANCOMYCIN HCL 1,000 MG, VIAL MATE ADAPTER 1 EACH in D5W 250 ML IV (07:38)
[2017-10-25] MEDS: ENOXAPARIN 30 MG/0.3 ML SYR (J1650) SC (07:38)
[2017-10-25] MEDS: IPRATROPIUM 0.5MG/ALBUTEROL 2.5MG INH SOL UD 3ML (DUONEB)(J7620) NEB ×4 (08:07→19:44)
[2017-10-25] MEDS ORDERED: REFRIGERATOR IV KEYS XX (09:30)
[2017-10-25] MEDS: MAG SULF 1GM/100ML (MAG RUN) 1 GM in APPROPRIATE DILUENT 1 EA IV (10:05)
[2017-10-25] MEDS: MIDAZOLAM HCL 100 MG in D5W 80 ML IV (10:28)
[2017-10-25] MEDS: K-PHOS NEUTRAL 250MG TABLET (SOD.PHOSPHATE/POT.PHOSPHATE) GT (11:45)
[2017-10-25 12:13] LABS: BEDSIDE GLUCOSE 162 MG/DL (83-110)
[2017-10-25 12:18] LABS: HEMATOCRIT 29.9 % (36.0-47.0)
[2017-10-25 12:46] LABS: CPK CREATINE PHOSPHOKINASE 107 U/L (26-192); TROPONIN I 0.24 NG/ML (< 0.10)
[2017-10-25 12:47] LABS: CK-MB VALUE MASS 4.4 NG/ML (0.0-3.6); MB/CK RELATIVE INDEX 4.11 (< OR =4)
[2017-10-25 18:04] LABS: BEDSIDE GLUCOSE 147 MG/DL (83-110)
[2017-10-25] MEDS: ATORVASTATIN 20 MG TAB NG (20:43)
[2017-10-26 00:11] LABS: BEDSIDE GLUCOSE 148 MG/DL (83-110)
[2017-10-26] MEDS: MEROPENEM INJ 1 GM in APPROPRIATE DILUENT 1 EA IV (01:26)
[2017-10-26] MEDS: methylPREDNISolone INJ 125 MG/2 ML VIAL (J2930) IV ×5 (01:27→23:28)
[2017-10-26] MEDS: MORPHINE 2 MG/ML 1ML SYRINGE (J2270) IV ×4 (04:11→21:12)
[2017-10-26 05:22] LABS: HEMATOCRIT 28.1 % (36.0-47.0); HEMOGLOBIN 8.7 g/dl (12.0-16.0); MEAN CORPUSCULAR HEMOGLOBIN 31.6 pg (27.0-33.0); MEAN CORPUSCULAR VOLUME 102.2 fl (80.0-96.0); PLATELET COUNT, AUTOMATED 139 10^3/uL (150-450); RED BLOOD COUNT 2.75 10^6/uL (4.00-5.40); RED CELL DISTRIBUTION WIDTH 13.2 % (11.5-14.5); WHITE BLOOD COUNT 14.4 10^3/uL (4.0-10.0)
[2017-10-26 05:56] LABS: ALBUMIN 2.2 GM/DL (3.2-5.2); ANION GAP 5 MEQ/L (8-16); BLOOD UREA NITROGEN 40 MG/DL (7-18); CALCIUM LEVEL 7.2 MG/DL (8.8-10.2); CARBON DIOXIDE LEVEL 33 MEQ/L (21-32); CHLORIDE LEVEL 107 MEQ/L (98-107); CREATININE FOR GFR 0.75 MG/DL (0.55-1.02); GLOMERULAR FILTRATION RATE > 60.0 (>39); GLUCOSE, FASTING 142 MG/DL (70-100); MAGNESIUM LEVEL 2.2 MG/DL (1.8-2.4); PHOSPHORUS LEVEL 1.6 MG/DL (2.5-4.9); POTASSIUM SERUM 3.8 MEQ/L (3.5-5.1); SODIUM LEVEL 145 MEQ/L (136-145)
[2017-10-26 05:59] LABS: ABG BASE EXCESS 7.3 (-2.0-2.0); ABG HCO3 31.5 MEQ/L (22.0-26.0); ABG O2 SATURATION 97.4 % (95.0-99.0); ABG PARTIAL PRESSURE CO2 43.2 mmHg (35.0-45.0); ABG PARTIAL PRESSURE O2 91.7 mmHg (75.0-100.0); ABG STANDARD HCO3 31.2 MEQ/L (22.0-26.0); ABG TOTAL CO2 32.8 MEQ/L (23.0-31.0); ABG pH (ARTERIAL) 7.481 UNITS (7.350-7.450)
[2017-10-26] MEDS: IPRATROPIUM 0.5MG/ALBUTEROL 2.5MG INH SOL UD 3ML (DUONEB)(J7620) NEB ×4 (07:16→20:46)
[2017-10-26] MEDS: VANCOMYCIN HCL 1,000 MG, VIAL MATE ADAPTER 1 EACH in D5W 250 ML IV (08:34)
[2017-10-26] MEDS: ASPIRIN 81 MG CHEW TABLET NG (10:33)
[2017-10-26] MEDS: PANTOPRAZOLE 40MG INJ (PROTONIX) (C9113) IV (10:33)
[2017-10-26] MEDS: CHLORHEXIDINE ORAL RINSE 0.12%/15ML 120ML BOTTLE MT ×2 (10:33→20:48)
[2017-10-26] MEDS: NEUTRA-PHOS 1.25 GM PACKET PO (10:33)
[2017-10-26] MEDS: ENOXAPARIN 30 MG/0.3 ML SYR (J1650) SC (10:33)
[2017-10-26] MEDS: MIDAZOLAM HCL 100 MG in D5W 80 ML IV (11:14)
[2017-10-26 14:50] LABS: BEDSIDE GLUCOSE 167 MG/DL (83-110)
[2017-10-26] MEDS: NS 1,000 ML IV (17:05)
[2017-10-26 18:15] LABS: BEDSIDE GLUCOSE 179 MG/DL (83-110)
[2017-10-26] MEDS: ATORVASTATIN 20 MG TAB NG (20:48)
[2017-10-27 00:38] LABS: BEDSIDE GLUCOSE 186 MG/DL (83-110)
[2017-10-27] MEDS: MORPHINE 2 MG/ML 1ML SYRINGE (J2270) IV ×7 (01:09→20:35)
[2017-10-27] MEDS: methylPREDNISolone INJ 125 MG/2 ML VIAL (J2930) IV ×3 (06:01→17:58)
[2017-10-27 06:18] LABS: HEMOGLOBIN 9.1 g/dl (12.0-16.0); MEAN CORPUSCULAR HEMOGLOBIN 31.4 pg (27.0-33.0); MEAN CORPUSCULAR HGB CONC 31.4 g/dl (32.0-36.5); PLATELET COUNT, AUTOMATED 150 10^3/uL (150-450); RED CELL DISTRIBUTION WIDTH 13.4 % (11.5-14.5); WHITE BLOOD COUNT 11.4 10^3/uL (4.0-10.0)
[2017-10-27 06:25] LABS: ABG BASE EXCESS 5.4 (-2.0-2.0); ABG HCO3 28.4 MEQ/L (22.0-26.0); ABG O2 SATURATION 98.2 % (95.0-99.0); ABG PARTIAL PRESSURE CO2 35.2 mmHg (35.0-45.0); ABG PARTIAL PRESSURE O2 115.8 mmHg (75.0-100.0); ABG STANDARD HCO3 29.4 MEQ/L (22.0-26.0); ABG TOTAL CO2 29.4 MEQ/L (23.0-31.0); ABG pH (ARTERIAL) 7.524 UNITS (7.350-7.450)
[2017-10-27 06:48] LABS: ALBUMIN 2.3 GM/DL (3.2-5.2); ANION GAP 6 MEQ/L (8-16); BLOOD UREA NITROGEN 50 MG/DL (7-18); CALCIUM LEVEL 7.5 MG/DL (8.8-10.2); CARBON DIOXIDE LEVEL 31 MEQ/L (21-32); CHLORIDE LEVEL 110 MEQ/L (98-107); CREATININE FOR GFR 0.81 MG/DL (0.55-1.02); GLOMERULAR FILTRATION RATE > 60.0 (>39); GLUCOSE, FASTING 164 MG/DL (70-100); MAGNESIUM LEVEL 2.6 MG/DL (1.8-2.4); PHOSPHORUS LEVEL 1.6 MG/DL (2.5-4.9); POTASSIUM SERUM 3.4 MEQ/L (3.5-5.1); SODIUM LEVEL 147 MEQ/L (136-145)
[2017-10-27] MEDS: IPRATROPIUM 0.5MG/ALBUTEROL 2.5MG INH SOL UD 3ML (DUONEB)(J7620) NEB ×4 (06:55→20:19)
[2017-10-27] MEDS: ASPIRIN 81 MG CHEW TABLET NG (09:00)
[2017-10-27] MEDS: NEUTRA-PHOS 1.25 GM PACKET PO (09:00)
[2017-10-27] MEDS: ENOXAPARIN 30 MG/0.3 ML SYR (J1650) SC (10:20)
[2017-10-27] MEDS: PANTOPRAZOLE 40MG INJ (PROTONIX) (C9113) IV (10:20)
[2017-10-27] MEDS: CHLORHEXIDINE ORAL RINSE 0.12%/15ML 120ML BOTTLE MT ×2 (10:20→20:35)
[2017-10-27 10:42] LABS: BEDSIDE GLUCOSE 181 MG/DL (83-110)
[2017-10-27] MEDS: MIDAZOLAM HCL 100 MG in D5W 80 ML IV (10:58)
[2017-10-27] MEDS: MIDAZOLAM INJ 2 MG/2 ML VIAL (J2250) IV (12:22)
[2017-10-27 13:13] LABS: BEDSIDE GLUCOSE 141 MG/DL (83-110)
[2017-10-27 18:32] LABS: BEDSIDE GLUCOSE 197 MG/DL (83-110)
[2017-10-27] MEDS: ATORVASTATIN 20 MG TAB NG (20:34)
[2017-10-28] MEDS: methylPREDNISolone INJ 125 MG/2 ML VIAL (J2930) IV ×5 (00:10→23:48)
[2017-10-28] MEDS: MORPHINE 2 MG/ML 1ML SYRINGE (J2270) IV ×7 (00:10→23:49)
[2017-10-28 00:20] LABS: BEDSIDE GLUCOSE 196 MG/DL (83-110)
[2017-10-28] MEDS: MIDAZOLAM INJ 2 MG/2 ML VIAL (J2250) IV ×4 (01:07→23:48)
[2017-10-28 04:55] LABS: HEMATOCRIT 30.7 % (36.0-47.0); HEMOGLOBIN 9.2 g/dl (12.0-16.0); MEAN CORPUSCULAR HEMOGLOBIN 31.2 pg (27.0-33.0); MEAN CORPUSCULAR VOLUME 104.1 fl (80.0-96.0); PLATELET COUNT, AUTOMATED 154 10^3/uL (150-450); RED BLOOD COUNT 2.95 10^6/uL (4.00-5.40); RED CELL DISTRIBUTION WIDTH 13.5 % (11.5-14.5); WHITE BLOOD COUNT 14.7 10^3/uL (4.0-10.0)
[2017-10-28 05:40] LABS: ABG BASE EXCESS -3.4 (-2.0-2.0); ABG HCO3 22.3 MEQ/L (22.0-26.0); ABG O2 SATURATION 93.6 % (95.0-99.0); ABG PARTIAL PRESSURE CO2 43.3 mmHg (35.0-45.0); ABG STANDARD HCO3 21.5 MEQ/L (22.0-26.0); ABG TOTAL CO2 23.6 MEQ/L (23.0-31.0)
[2017-10-28 05:46] LABS: ALBUMIN 2.4 GM/DL (3.2-5.2); ANION GAP 5 MEQ/L (8-16); BLOOD UREA NITROGEN 49 MG/DL (7-18); CALCIUM LEVEL 7.1 MG/DL (8.8-10.2); CARBON DIOXIDE LEVEL 33 MEQ/L (21-32); CHLORIDE LEVEL 111 MEQ/L (98-107); CREATININE FOR GFR 0.66 MG/DL (0.55-1.02); GLOMERULAR FILTRATION RATE > 60.0 (>39); GLUCOSE, FASTING 168 MG/DL (70-100); MAGNESIUM LEVEL 2.5 MG/DL (1.8-2.4); PHOSPHORUS LEVEL 2.6 MG/DL (2.5-4.9); POTASSIUM SERUM 4.1 MEQ/L (3.5-5.1); SODIUM LEVEL 149 MEQ/L (136-145)
[2017-10-28] MEDS: IPRATROPIUM 0.5MG/ALBUTEROL 2.5MG INH SOL UD 3ML (DUONEB)(J7620) NEB ×4 (07:14→19:59)
[2017-10-28] MEDS: ENOXAPARIN 30 MG/0.3 ML SYR (J1650) SC (08:31)
[2017-10-28] MEDS: ASPIRIN 81 MG CHEW TABLET NG (08:32)
[2017-10-28] MEDS: CHLORHEXIDINE ORAL RINSE 0.12%/15ML 120ML BOTTLE MT ×2 (08:32→21:45)
[2017-10-28] MEDS: PANTOPRAZOLE 40MG INJ (PROTONIX) (C9113) IV (08:32)
[2017-10-28] MEDS: NEUTRA-PHOS 1.25 GM PACKET PO (08:32)
[2017-10-28] MEDS ORDERED: LIDOCAINE 1% MDV 20ML VIAL As Ordered (09:03)
[2017-10-28] MEDS: LIDOCAINE 1% MDV 20ML VIAL IM (10:15)
[2017-10-28] MEDS: MIDAZOLAM HCL 100 MG in D5W 80 ML IV (11:42)
[2017-10-28] MEDS: MEROPENEM INJ 1 GM in APPROPRIATE DILUENT 1 EA IV ×2 (11:46→18:00)
[2017-10-28] MEDS: VANCOMYCIN HCL 1,000 MG, VIAL MATE ADAPTER 1 EACH in D5W 250 ML IV ×2 (12:26→23:48)
[2017-10-28] MEDS: VANCOMYCIN HCL 500 MG in D5W MINI-BAG PLUS 100 ML IV (13:00)
[2017-10-28 13:51] LABS: BEDSIDE GLUCOSE 153 MG/DL (83-110)
[2017-10-28 18:22] LABS: BEDSIDE GLUCOSE 174 MG/DL (83-110)
[2017-10-28] MEDS: ATORVASTATIN 20 MG TAB NG (21:45)
[2017-10-29 00:15] LABS: BEDSIDE GLUCOSE 194 MG/DL (83-110)
[2017-10-29] MEDS: MEROPENEM INJ 1 GM in APPROPRIATE DILUENT 1 EA IV ×3 (02:55→17:55)
[2017-10-29] MEDS: MIDAZOLAM INJ 2 MG/2 ML VIAL (J2250) IV (04:08)
[2017-10-29] MEDS: MORPHINE 2 MG/ML 1ML SYRINGE (J2270) IV (04:09)
[2017-10-29] MEDS: methylPREDNISolone INJ 125 MG/2 ML VIAL (J2930) IV ×3 (05:29→17:55)
[2017-10-29 05:33] LABS: ABG BASE EXCESS 7.2 (-2.0-2.0); ABG HCO3 34.1 MEQ/L (22.0-26.0); ABG O2 SATURATION 94.8 % (95.0-99.0); ABG pH (ARTERIAL) 7.358 UNITS (7.350-7.450)
[2017-10-29 05:38] LABS: HEMATOCRIT 31.2 % (36.0-47.0); HEMOGLOBIN 9.3 g/dl (12.0-16.0); MEAN CORPUSCULAR HEMOGLOBIN 31.1 pg (27.0-33.0); MEAN CORPUSCULAR HGB CONC 29.8 g/dl (32.0-36.5); MEAN CORPUSCULAR VOLUME 104.3 fl (80.0-96.0); PLATELET COUNT, AUTOMATED 177 10^3/uL (150-450); RED BLOOD COUNT 2.99 10^6/uL (4.00-5.40); RED CELL DISTRIBUTION WIDTH 13.1 % (11.5-14.5); WHITE BLOOD COUNT 15.2 10^3/uL (4.0-10.0)
[2017-10-29 06:12] LABS: ALBUMIN 2.2 GM/DL (3.2-5.2); ANION GAP 4 MEQ/L (8-16); BLOOD UREA NITROGEN 45 MG/DL (7-18); CALCIUM LEVEL 7.5 MG/DL (8.8-10.2); CARBON DIOXIDE LEVEL 35 MEQ/L (21-32); CHLORIDE LEVEL 108 MEQ/L (98-107); CREATININE FOR GFR 0.59 MG/DL (0.55-1.30); GLOMERULAR FILTRATION RATE > 60.0 (>39); GLUCOSE, FASTING 145 MG/DL (70-100); MAGNESIUM LEVEL 2.5 MG/DL (1.8-2.4); PHOSPHORUS LEVEL 2.4 MG/DL (2.5-4.9); POTASSIUM SERUM 4.3 MEQ/L (3.5-5.1); SODIUM LEVEL 147 MEQ/L (136-145)
[2017-10-29 08:07] LABS: BASO % 0.1 % (0.0-1.0); IMMATURE GRANULOCYTE # 0.2 10^3/uL (0-0); LYMPH % 1.3 % (24.0-44.0); MONO # 0.3 10^3/uL (0.0-0.8); NEUTROPHILS # 14.5 10^3/uL (1.8-7.7); NEUTROPHILS % 95.6 % (36.0-66.0)
[2017-10-29 08:17] LABS: LYMPH # 0.2 10^3/uL (1.5-4.5)
[2017-10-29 08:18] LABS: DIFF SLIDE NUMBER 27; POSITIVE DIFF POS FLAG
[2017-10-29] MEDS: IPRATROPIUM 0.5MG/ALBUTEROL 2.5MG INH SOL UD 3ML (DUONEB)(J7620) NEB ×4 (08:58→21:14)
[2017-10-29] MEDS: PANTOPRAZOLE 40MG INJ (PROTONIX) (C9113) IV (09:09)
[2017-10-29] MEDS: ENOXAPARIN 30 MG/0.3 ML SYR (J1650) SC (09:09)
[2017-10-29] MEDS: ASPIRIN 81 MG CHEW TABLET NG (09:09)
[2017-10-29] MEDS: CHLORHEXIDINE ORAL RINSE 0.12%/15ML 120ML BOTTLE MT ×2 (09:09→21:42)
[2017-10-29] MEDS: METOCLOPRAMIDE 5 MG TAB NG ×2 (09:47→21:43)
[2017-10-29] MEDS: VANCOMYCIN HCL 1,000 MG, VIAL MATE ADAPTER 1 EACH in D5W 250 ML IV (11:33)
[2017-10-29 12:38] LABS: BEDSIDE GLUCOSE 176 MG/DL (83-110)
[2017-10-29 17:59] LABS: BEDSIDE GLUCOSE 143 MG/DL (83-110)
[2017-10-29] MEDS ORDERED: SODIUM CHLORIDE 0.9% INJ 10 ML SYR IV (18:00)
[2017-10-29] MEDS: ATORVASTATIN 20 MG TAB NG (21:43)
[2017-10-29] MEDS: SODIUM CHLORIDE 0.9% INJ 10 ML SYR IV (21:44)
[2017-10-29 23:28] LABS: VANCOMYCIN LEVEL TROUGH 16.9 UG/ML (10.0-20.0)
[2017-10-30] MEDS: methylPREDNISolone INJ 125 MG/2 ML VIAL (J2930) IV ×4 (00:03→17:05)
[2017-10-30] MEDS: VANCOMYCIN HCL 1,000 MG, VIAL MATE ADAPTER 1 EACH in D5W 250 ML IV ×2 (00:03→12:19)
[2017-10-30] MEDS: MEROPENEM INJ 1 GM in APPROPRIATE DILUENT 1 EA IV ×3 (01:18→17:05)
[2017-10-30] MEDS: SODIUM CHLORIDE 0.9% INJ 10 ML SYR IV ×3 (06:00→21:32)
[2017-10-30 06:01] LABS: HEMATOCRIT 33.6 % (36.0-47.0); HEMOGLOBIN 10.4 g/dl (12.0-16.0); MEAN CORPUSCULAR HEMOGLOBIN 31.2 pg (27.0-33.0); MEAN CORPUSCULAR VOLUME 100.9 fl (80.0-96.0); PLATELET COUNT, AUTOMATED 252 10^3/uL (150-450); RED BLOOD COUNT 3.33 10^6/uL (4.00-5.40); RED CELL DISTRIBUTION WIDTH 13.2 % (11.5-14.5); WHITE BLOOD COUNT 20.3 10^3/uL (4.0-10.0)
[2017-10-30 06:11] LABS: ABG BASE EXCESS 10.3 (-2.0-2.0); ABG HCO3 36.1 MEQ/L (22.0-26.0); ABG PARTIAL PRESSURE CO2 54.9 mmHg (35.0-45.0); ABG PARTIAL PRESSURE O2 73.5 mmHg (75.0-100.0); ABG TOTAL CO2 37.8 MEQ/L (23.0-31.0); ABG pH (ARTERIAL) 7.436 UNITS (7.350-7.450)
[2017-10-30 06:20] LABS: ALBUMIN 2.5 GM/DL (3.2-5.2); ANION GAP 2 MEQ/L (8-16); BLOOD UREA NITROGEN 44 MG/DL (7-18); CALCIUM LEVEL 7.9 MG/DL (8.8-10.2); CARBON DIOXIDE LEVEL 37 MEQ/L (21-32); CHLORIDE LEVEL 107 MEQ/L (98-107); CREATININE FOR GFR 0.57 MG/DL (0.55-1.30); GLOMERULAR FILTRATION RATE > 60.0 (>39); GLUCOSE, FASTING 157 MG/DL (70-100); MAGNESIUM LEVEL 2.5 MG/DL (1.8-2.4); PHOSPHORUS LEVEL 2.2 MG/DL (2.5-4.9); POTASSIUM SERUM 4.1 MEQ/L (3.5-5.1); SODIUM LEVEL 146 MEQ/L (136-145)
[2017-10-30] MEDS: IPRATROPIUM 0.5MG/ALBUTEROL 2.5MG INH SOL UD 3ML (DUONEB)(J7620) NEB ×4 (07:24→20:08)
[2017-10-30] MEDS: PANTOPRAZOLE 40MG INJ (PROTONIX) (C9113) IV (09:45)
[2017-10-30] MEDS: METOCLOPRAMIDE 5 MG TAB NG ×2 (09:45→21:31)
[2017-10-30] MEDS: FUROSEMIDE 40 MG/4 ML VIAL (J1940) IV (09:45)
[2017-10-30] MEDS: ASPIRIN 81 MG CHEW TABLET NG (09:45)
[2017-10-30] MEDS: CHLORHEXIDINE ORAL RINSE 0.12%/15ML 120ML BOTTLE MT ×2 (09:45→21:32)
[2017-10-30] MEDS: ENOXAPARIN 30 MG/0.3 ML SYR (J1650) SC (09:46)
[2017-10-30 11:54] LABS: BEDSIDE GLUCOSE 181 MG/DL (83-110)
[2017-10-30 13:12] LABS: ANION GAP 2 MEQ/L (8-16); BLOOD UREA NITROGEN 46 MG/DL (7-18); CALCIUM LEVEL 7.9 MG/DL (8.8-10.2); CARBON DIOXIDE LEVEL 40 MEQ/L (21-32); CHLORIDE LEVEL 101 MEQ/L (98-107); CREATININE FOR GFR 0.67 MG/DL (0.55-1.30); GLOMERULAR FILTRATION RATE > 60.0 (>39); GLUCOSE, FASTING 183 MG/DL (70-100); MAGNESIUM LEVEL 2.3 MG/DL (1.8-2.4); POTASSIUM SERUM 3.6 MEQ/L (3.5-5.1); SODIUM LEVEL 143 MEQ/L (136-145)
[2017-10-30] MEDS: MORPHINE 2 MG/ML 1ML SYRINGE (J2270) IV ×3 (17:06→21:27)
[2017-10-30 18:22] LABS: BEDSIDE GLUCOSE 168 MG/DL (83-110)
[2017-10-30] MEDS: ATORVASTATIN 20 MG TAB NG (21:31)
[2017-10-31 00:08] LABS: BEDSIDE GLUCOSE 203 MG/DL (83-110)
[2017-10-31] MEDS: VANCOMYCIN HCL 1,000 MG, VIAL MATE ADAPTER 1 EACH in D5W 250 ML IV ×2 (00:22→12:24)
[2017-10-31] MEDS: methylPREDNISolone INJ 125 MG/2 ML VIAL (J2930) IV ×4 (00:23→17:30)
[2017-10-31] MEDS: MORPHINE 2 MG/ML 1ML SYRINGE (J2270) IV ×11 (00:23→22:52)
[2017-10-31] MEDS: MEROPENEM INJ 1 GM in APPROPRIATE DILUENT 1 EA IV ×3 (01:49→17:31)
[2017-10-31 05:20] LABS: HEMATOCRIT 31.7 % (36.0-47.0); HEMOGLOBIN 10.2 g/dl (12.0-16.0); MEAN CORPUSCULAR HGB CONC 32.2 g/dl (32.0-36.5); MEAN CORPUSCULAR VOLUME 99.4 fl (80.0-96.0); PLATELET COUNT, AUTOMATED 244 10^3/uL (150-450); RED BLOOD COUNT 3.19 10^6/uL (4.00-5.40); RED CELL DISTRIBUTION WIDTH 13.3 % (11.5-14.5); WHITE BLOOD COUNT 19.8 10^3/uL (4.0-10.0)
[2017-10-31 05:32] LABS: ABG BASE EXCESS 14.5 (-2.0-2.0); ABG HCO3 39.5 MEQ/L (22.0-26.0); ABG O2 SATURATION 96.3 % (95.0-99.0); ABG PARTIAL PRESSURE CO2 51.1 mmHg (35.0-45.0); ABG PARTIAL PRESSURE O2 81.8 mmHg (75.0-100.0); ABG STANDARD HCO3 38.3 MEQ/L (22.0-26.0); ABG TOTAL CO2 41.1 MEQ/L (23.0-31.0); ABG pH (ARTERIAL) 7.506 UNITS (7.350-7.450)
[2017-10-31] MEDS: SODIUM CHLORIDE 0.9% INJ 10 ML SYR IV ×3 (05:40→21:03)
[2017-10-31 05:47] LABS: ALBUMIN 2.4 GM/DL (3.2-5.2); ANION GAP 4 MEQ/L (8-16); BLOOD UREA NITROGEN 45 MG/DL (7-18); CALCIUM LEVEL 7.4 MG/DL (8.8-10.2); CARBON DIOXIDE LEVEL 39 MEQ/L (21-32); CHLORIDE LEVEL 101 MEQ/L (98-107); CREATININE FOR GFR 0.62 MG/DL (0.55-1.30); GLOMERULAR FILTRATION RATE > 60.0 (>39); GLUCOSE, FASTING 177 MG/DL (70-100); MAGNESIUM LEVEL 2.2 MG/DL (1.8-2.4); PHOSPHORUS LEVEL 2.8 MG/DL (2.5-4.9); POTASSIUM SERUM 3.9 MEQ/L (3.5-5.1); SODIUM LEVEL 144 MEQ/L (136-145)
[2017-10-31] MEDS: METOCLOPRAMIDE 5 MG TAB NG ×2 (09:07→20:51)
[2017-10-31] MEDS: ASPIRIN 81 MG CHEW TABLET NG (09:07)
[2017-10-31] MEDS: ENOXAPARIN 30 MG/0.3 ML SYR (J1650) SC (09:08)
[2017-10-31] MEDS: CHLORHEXIDINE ORAL RINSE 0.12%/15ML 120ML BOTTLE MT ×2 (09:08→20:52)
[2017-10-31] MEDS: PANTOPRAZOLE 40MG INJ (PROTONIX) (C9113) IV (09:08)
[2017-10-31] MEDS: IPRATROPIUM 0.5MG/ALBUTEROL 2.5MG INH SOL UD 3ML (DUONEB)(J7620) NEB ×4 (09:41→19:40)
[2017-10-31] MEDS: diltiaZEM 125 MG in NS 100 ML IV ×2 (10:37→20:58)
[2017-10-31] MEDS: FUROSEMIDE 40 MG/4 ML VIAL (J1940) IV (10:37)
[2017-10-31] MEDS ORDERED: PROPOFOL 1,000 MG/100 ML VIAL As Ordered (12:04)
[2017-10-31] MEDS: PROPOFOL 1,000 MG in APPROPRIATE DILUENT 1 EA IV ×4 (12:26→23:58)
[2017-10-31 14:49] LABS: ALBUMIN 2.4 GM/DL (3.2-5.2); ALBUMIN/GLOBULIN RATIO 0.89 (1.00-1.93); ALKALINE PHOSPHATASE 44 U/L (45-117); ALT/SGPT 30 U/L (12-78); AMYLASE 156 U/L (25-115); ANION GAP 3 MEQ/L (8-16); AST/SGOT 33 U/L (7-37); BILIRUBIN,TOTAL 0.7 MG/DL (0.2-1.0); BLOOD UREA NITROGEN 50 MG/DL (7-18); CALCIUM LEVEL 7.6 MG/DL (8.8-10.2); CARBON DIOXIDE LEVEL 41 MEQ/L (21-32); CHLORIDE LEVEL 97 MEQ/L (98-107); CREATININE FOR GFR 0.73 MG/DL (0.55-1.30); GLOMERULAR FILTRATION RATE > 60.0 (>39); GLUCOSE, FASTING 221 MG/DL (70-100); LIPASE 194 U/L (73-393); MAGNESIUM LEVEL 2.1 MG/DL (1.8-2.4); POTASSIUM SERUM 3.7 MEQ/L (3.5-5.1); SODIUM LEVEL 141 MEQ/L (136-145); TOTAL PROTEIN 5.1 GM/DL (6.4-8.2)
[2017-10-31] MEDS: ATORVASTATIN 20 MG TAB NG (20:51)
[2017-11-01] MEDS: MEROPENEM INJ 1 GM in APPROPRIATE DILUENT 1 EA IV ×3 (01:20→17:38)
[2017-11-01] MEDS: MORPHINE 2 MG/ML 1ML SYRINGE (J2270) IV ×5 (03:57→20:38)
[2017-11-01] MEDS: methylPREDNISolone INJ 125 MG/2 ML VIAL (J2930) IV ×4 (05:11→17:38)
[2017-11-01] MEDS: SODIUM CHLORIDE 0.9% INJ 10 ML SYR IV ×3 (05:11→22:00)
[2017-11-01 05:31] LABS: BASO % 0.1 % (0.0-1.0); HEMATOCRIT 30.3 % (36.0-47.0); HEMOGLOBIN 9.6 g/dl (12.0-16.0); IMMATURE GRANULOCYTE # 0.2 10^3/uL (0-0); IMMATURE GRANULOCYTE % 1.1 % (0-0); LYMPH % 0.7 % (24.0-44.0); MEAN CORPUSCULAR HEMOGLOBIN 31.4 pg (27.0-33.0); MEAN CORPUSCULAR HGB CONC 31.7 g/dl (32.0-36.5); MONO # 0.4 10^3/uL (0.0-0.8); MONO % 2.2 % (0.0-5.0); NEUTROPHILS # 16.2 10^3/uL (1.8-7.7); NEUTROPHILS % 95.9 % (36.0-66.0); PLATELET COUNT, AUTOMATED 234 10^3/uL (150-450); RED BLOOD COUNT 3.06 10^6/uL (4.00-5.40); RED CELL DISTRIBUTION WIDTH 13.3 % (11.5-14.5); WHITE BLOOD COUNT 16.9 10^3/uL (4.0-10.0)
[2017-11-01 05:46] LABS: LYMPH # 0.1 10^3/uL (1.5-4.5); POSITIVE DIFF POS FLAG
[2017-11-01 05:53] LABS: ALBUMIN 2.4 GM/DL (3.2-5.2); ANION GAP 5 MEQ/L (8-16); BLOOD UREA NITROGEN 50 MG/DL (7-18); CALCIUM LEVEL 7.6 MG/DL (8.8-10.2); CARBON DIOXIDE LEVEL 39 MEQ/L (21-32); CHLORIDE LEVEL 99 MEQ/L (98-107); CREATININE FOR GFR 0.66 MG/DL (0.55-1.30); GLOMERULAR FILTRATION RATE > 60.0 (>39); GLUCOSE, FASTING 154 MG/DL (70-100); MAGNESIUM LEVEL 2.2 MG/DL (1.8-2.4); PHOSPHORUS LEVEL 3.2 MG/DL (2.5-4.9); POTASSIUM SERUM 3.8 MEQ/L (3.5-5.1); SODIUM LEVEL 143 MEQ/L (136-145)
[2017-11-01 06:00] LABS: ABG BASE EXCESS 15.2 (-2.0-2.0); ABG HCO3 39.7 MEQ/L (22.0-26.0); ABG O2 SATURATION 92.4 % (95.0-99.0); ABG PARTIAL PRESSURE O2 61.9 mmHg (75.0-100.0); ABG TOTAL CO2 41.1 MEQ/L (23.0-31.0); ABG pH (ARTERIAL) 7.535 UNITS (7.350-7.450)
[2017-11-01] MEDS: diltiaZEM 125 MG in NS 100 ML IV ×3 (06:13→22:04)
[2017-11-01] MEDS: IPRATROPIUM 0.5MG/ALBUTEROL 2.5MG INH SOL UD 3ML (DUONEB)(J7620) NEB ×3 (07:29→19:49)
[2017-11-01] MEDS ORDERED: CARISOPRODOL 350 MG TAB PO (09:00)
[2017-11-01] MEDS: CHLORHEXIDINE ORAL RINSE 0.12%/15ML 120ML BOTTLE MT ×2 (09:17→20:36)
[2017-11-01] MEDS: METOCLOPRAMIDE 5 MG TAB NG ×2 (09:17→20:35)
[2017-11-01] MEDS: ASPIRIN 81 MG CHEW TABLET NG (09:17)
[2017-11-01] MEDS: ENOXAPARIN 30 MG/0.3 ML SYR (J1650) SC (09:17)
[2017-11-01] MEDS: PANTOPRAZOLE 40MG INJ (PROTONIX) (C9113) IV (09:17)
[2017-11-01] MEDS: PROPOFOL 1,000 MG in APPROPRIATE DILUENT 1 EA IV (10:17)
[2017-11-01] MEDS ORDERED: DEXTROSE 50% 50 ML SYRINGE IV (10:30)
[2017-11-01] MEDS ORDERED: GLUCOSE 4 GM CHEW TABLET PO (10:30)
[2017-11-01] MEDS ORDERED: GLUCAGON FOR INJ 1 MG VIAL (J1610) SC (10:30)
[2017-11-01 10:47] LABS: ABG pH (ARTERIAL) 7.548 UNITS (7.350-7.450)
[2017-11-01 10:48] LABS: ABG HCO3 39.1 MEQ/L (22.0-26.0); ABG O2 SATURATION 92.4 % (95.0-99.0); ABG PARTIAL PRESSURE CO2 45.9 mmHg (35.0-45.0); ABG PARTIAL PRESSURE O2 62.3 mmHg (75.0-100.0); ABG STANDARD HCO3 38.7 MEQ/L (22.0-26.0); ABG TOTAL CO2 40.5 MEQ/L (23.0-31.0)
[2017-11-01] MEDS: ALPRAZolam 0.25 MG TAB PO ×2 (11:35→20:36)
[2017-11-01] MEDS: VANCOMYCIN HCL 1,000 MG, VIAL MATE ADAPTER 1 EACH in D5W 250 ML IV ×2 (11:35)
[2017-11-01] MEDS: HumaLOG INSULIN (NovoLOG) PER UNIT SC ×2 (11:36→17:38)
[2017-11-01 11:47] LABS: BEDSIDE GLUCOSE 147 MG/DL (83-110)
[2017-11-01] MEDS: CYCLOBENZAPRINE 5MG TABLET PO ×2 (12:39→20:35)
[2017-11-01 17:39] LABS: BEDSIDE GLUCOSE 182 MG/DL (83-110)
[2017-11-01] MEDS: ATORVASTATIN 20 MG TAB NG (20:36)
[2017-11-01 23:47] LABS: VANCOMYCIN LEVEL TROUGH 20.8 UG/ML (10.0-20.0)
[2017-11-02 00:46] LABS: BEDSIDE GLUCOSE 189 MG/DL (83-110)
[2017-11-02] MEDS: HumaLOG INSULIN (NovoLOG) PER UNIT SC ×4 (00:46→17:23)
[2017-11-02] MEDS: methylPREDNISolone INJ 125 MG/2 ML VIAL (J2930) IV ×4 (00:47→17:23)
[2017-11-02] MEDS: VANCOMYCIN HCL 1,000 MG, VIAL MATE ADAPTER 1 EACH in D5W 250 ML IV ×2 (00:47→11:44)
[2017-11-02] MEDS: MEROPENEM INJ 1 GM in APPROPRIATE DILUENT 1 EA IV ×3 (02:11→17:23)
[2017-11-02] MEDS: PROPOFOL 1,000 MG in APPROPRIATE DILUENT 1 EA IV (04:44)
[2017-11-02 05:02] LABS: BASO % 0.1 % (0.0-1.0); HEMATOCRIT 31.9 % (36.0-47.0); HEMOGLOBIN 10.3 g/dl (12.0-16.0); IMMATURE GRANULOCYTE # 0.3 10^3/uL (0-0); IMMATURE GRANULOCYTE % 1.3 % (0-0); LYMPH % 0.7 % (24.0-44.0); MEAN CORPUSCULAR HEMOGLOBIN 31.5 pg (27.0-33.0); MEAN CORPUSCULAR HGB CONC 32.3 g/dl (32.0-36.5); MEAN CORPUSCULAR VOLUME 97.6 fl (80.0-96.0); MONO # 0.5 10^3/uL (0.0-0.8); MONO % 2.3 % (0.0-5.0); NEUTROPHILS # 19.1 10^3/uL (1.8-7.7); NEUTROPHILS % 95.6 % (36.0-66.0); PLATELET COUNT, AUTOMATED 258 10^3/uL (150-450); RED BLOOD COUNT 3.27 10^6/uL (4.00-5.40); RED CELL DISTRIBUTION WIDTH 13.2 % (11.5-14.5)
[2017-11-02 05:17] LABS: ALBUMIN 2.5 GM/DL (3.2-5.2); ANION GAP 5 MEQ/L (8-16); BLOOD UREA NITROGEN 44 MG/DL (7-18); CALCIUM LEVEL 7.9 MG/DL (8.8-10.2); CARBON DIOXIDE LEVEL 39 MEQ/L (21-32); CHLORIDE LEVEL 98 MEQ/L (98-107); CREATININE FOR GFR 0.57 MG/DL (0.55-1.30); GLOMERULAR FILTRATION RATE > 60.0 (>39); GLUCOSE, FASTING 157 MG/DL (70-100); MAGNESIUM LEVEL 2.2 MG/DL (1.8-2.4); PHOSPHORUS LEVEL 2.8 MG/DL (2.5-4.9); POTASSIUM SERUM 3.5 MEQ/L (3.5-5.1); SODIUM LEVEL 142 MEQ/L (136-145)
[2017-11-02 05:32] LABS: LYMPH # 0.1 10^3/uL (1.5-4.5); POSITIVE DIFF POS FLAG
[2017-11-02] MEDS: SODIUM CHLORIDE 0.9% INJ 10 ML SYR IV ×3 (06:00→21:25)
[2017-11-02] MEDS: IPRATROPIUM 0.5MG/ALBUTEROL 2.5MG INH SOL UD 3ML (DUONEB)(J7620) NEB ×4 (07:17→19:55)
[2017-11-02] MEDS: ENOXAPARIN 30 MG/0.3 ML SYR (J1650) SC (08:42)
[2017-11-02] MEDS: PANTOPRAZOLE 40MG INJ (PROTONIX) (C9113) IV (08:42)
[2017-11-02] MEDS: METOCLOPRAMIDE 5 MG TAB NG ×2 (08:42→21:00)
[2017-11-02] MEDS: CYCLOBENZAPRINE 5MG TABLET PO ×2 (08:43→21:00)
[2017-11-02] MEDS: ASPIRIN 81 MG CHEW TABLET NG (08:43)
[2017-11-02] MEDS: ALPRAZolam 0.25 MG TAB PO ×2 (08:43→21:00)
[2017-11-02] MEDS: CHLORHEXIDINE ORAL RINSE 0.12%/15ML 120ML BOTTLE MT ×2 (08:43→21:24)
[2017-11-02 11:46] LABS: BEDSIDE GLUCOSE 136 MG/DL (83-110)
[2017-11-02 17:27] LABS: BEDSIDE GLUCOSE 149 MG/DL (83-110)
[2017-11-02] MEDS: ATORVASTATIN 20 MG TAB NG (21:00)
[2017-11-02] MEDS: MORPHINE 2 MG/ML 1ML SYRINGE (J2270) IV (21:24)
[2017-11-03 00:43] LABS: BEDSIDE GLUCOSE 147 MG/DL (83-110)
[2017-11-03] MEDS: VANCOMYCIN HCL 1,000 MG, VIAL MATE ADAPTER 1 EACH in D5W 250 ML IV (00:44)
[2017-11-03] MEDS: HumaLOG INSULIN (NovoLOG) PER UNIT SC ×4 (00:44→17:35)
[2017-11-03] MEDS: methylPREDNISolone INJ 125 MG/2 ML VIAL (J2930) IV ×3 (00:44→17:36)
[2017-11-03] MEDS: MORPHINE 2 MG/ML 1ML SYRINGE (J2270) IV ×3 (01:14→06:12)
[2017-11-03] MEDS: MEROPENEM INJ 1 GM in APPROPRIATE DILUENT 1 EA IV ×3 (02:12→17:35)
[2017-11-03 05:39] LABS: ABG BASE EXCESS 15.7 (-2.0-2.0); ABG HCO3 40.7 MEQ/L (22.0-26.0); ABG O2 SATURATION 94.7 % (95.0-99.0); ABG PARTIAL PRESSURE O2 72.7 mmHg (75.0-100.0); ABG STANDARD HCO3 39.6 MEQ/L (22.0-26.0); ABG TOTAL CO2 42.3 MEQ/L (23.0-31.0)
[2017-11-03] MEDS: SODIUM CHLORIDE 0.9% INJ 10 ML SYR IV ×3 (06:00→21:13)
[2017-11-03 06:17] LABS: BEDSIDE GLUCOSE 125 MG/DL (83-110)
[2017-11-03 06:35] LABS: BASO % 0.1 % (0.0-1.0); HEMATOCRIT 35.4 % (36.0-47.0); HEMOGLOBIN 11.3 g/dl (12.0-16.0); IMMATURE GRANULOCYTE # 0.2 10^3/uL (0-0); IMMATURE GRANULOCYTE % 0.9 % (0-0); LYMPH % 0.4 % (24.0-44.0); MEAN CORPUSCULAR HEMOGLOBIN 31.2 pg (27.0-33.0); MEAN CORPUSCULAR HGB CONC 31.9 g/dl (32.0-36.5); MEAN CORPUSCULAR VOLUME 97.8 fl (80.0-96.0); MONO # 0.5 10^3/uL (0.0-0.8); MONO % 1.9 % (0.0-5.0); NEUTROPHILS # 24.3 10^3/uL (1.8-7.7); NEUTROPHILS % 96.7 % (36.0-66.0); PLATELET COUNT, AUTOMATED 287 10^3/uL (150-450); RED BLOOD COUNT 3.62 10^6/uL (4.00-5.40); RED CELL DISTRIBUTION WIDTH 13.2 % (11.5-14.5); WHITE BLOOD COUNT 25.1 10^3/uL (4.0-10.0)
[2017-11-03 06:55] LABS: LYMPH # 0.1 10^3/uL (1.5-4.5); POSITIVE DIFF POS FLAG
[2017-11-03 07:02] LABS: ALBUMIN 2.7 GM/DL (3.2-5.2); ALBUMIN/GLOBULIN RATIO 0.96 (1.00-1.93); ALKALINE PHOSPHATASE 56 U/L (45-117); ALT/SGPT 38 U/L (12-78); ANION GAP 4 MEQ/L (8-16); AST/SGOT 52 U/L (7-37); BILIRUBIN,TOTAL 1.2 MG/DL (0.2-1.0); BLOOD UREA NITROGEN 34 MG/DL (7-18); CALCIUM LEVEL 7.9 MG/DL (8.8-10.2); CARBON DIOXIDE LEVEL 41 MEQ/L (21-32); CHLORIDE LEVEL 100 MEQ/L (98-107); CHOLESTEROL LEVEL 173 MG/DL (< 200); CPK CREATINE PHOSPHOKINASE 103 U/L (26-192); CREATININE FOR GFR 0.42 MG/DL (0.55-1.30); GLOMERULAR FILTRATION RATE > 60.0 (>39); GLUCOSE, FASTING 134 MG/DL (70-100); LDH LACTATE DEHYDROGENASE 767 U/L (84-246); MAGNESIUM LEVEL 2.1 MG/DL (1.8-2.4); PHOSPHORUS LEVEL 2.7 MG/DL (2.5-4.9); POTASSIUM SERUM 3.1 MEQ/L (3.5-5.1); SODIUM LEVEL 145 MEQ/L (136-145); TOTAL PROTEIN 5.5 GM/DL (6.4-8.2); TRIGLYCERIDES LEVEL 212 MG/DL (<150)
[2017-11-03] MEDS: IPRATROPIUM 0.5MG/ALBUTEROL 2.5MG INH SOL UD 3ML (DUONEB)(J7620) NEB ×4 (08:36→19:29)
[2017-11-03] MEDS: PANTOPRAZOLE 40MG INJ (PROTONIX) (C9113) IV (09:46)
[2017-11-03] MEDS: KCL 20MEQ IN 100ML SWI (KRUN) 20 MEQ in APPROPRIATE DILUENT 1 EA IV (09:48)
[2017-11-03] MEDS ORDERED: ALPRAZolam 0.25 MG TAB PO (10:00)
[2017-11-03] MEDS: METOCLOPRAMIDE 5 MG TAB NG ×2 (10:03→21:12)
[2017-11-03] MEDS: CYCLOBENZAPRINE 5MG TABLET PO ×2 (10:03→21:11)
[2017-11-03] MEDS: ASPIRIN 81 MG CHEW TABLET NG (10:03)
[2017-11-03] MEDS: CHLORHEXIDINE ORAL RINSE 0.12%/15ML 120ML BOTTLE MT ×2 (10:16→21:12)
[2017-11-03] MEDS: ENOXAPARIN 30 MG/0.3 ML SYR (J1650) SC (10:56)
[2017-11-03 12:14] LABS: BEDSIDE GLUCOSE 135 MG/DL (83-110)
[2017-11-03 17:17] LABS: BEDSIDE GLUCOSE 128 MG/DL (83-110)
[2017-11-03] MEDS: ATORVASTATIN 20 MG TAB NG (21:11)
[2017-11-04] MEDS: HumaLOG INSULIN (NovoLOG) PER UNIT SC ×4 (00:05→17:25)
[2017-11-04] MEDS: MORPHINE 2 MG/ML 1ML SYRINGE (J2270) IV ×3 (00:06→22:03)
[2017-11-04 00:16] LABS: BEDSIDE GLUCOSE 144 MG/DL (83-110)
[2017-11-04] MEDS: MEROPENEM INJ 1 GM in APPROPRIATE DILUENT 1 EA IV ×3 (02:33→17:24)
[2017-11-04] MEDS: methylPREDNISolone INJ 125 MG/2 ML VIAL (J2930) IV ×2 (05:26→17:24)
[2017-11-04] MEDS: SODIUM CHLORIDE 0.9% INJ 10 ML SYR IV ×3 (05:27→20:58)
[2017-11-04 05:44] LABS: BASO % 0.2 % (0.0-1.0); HEMATOCRIT 36.2 % (36.0-47.0); HEMOGLOBIN 11.5 g/dl (12.0-16.0); IMMATURE GRANULOCYTE # 0.2 10^3/uL (0-0); IMMATURE GRANULOCYTE % 0.8 % (0-0); LYMPH % 0.4 % (24.0-44.0); MEAN CORPUSCULAR HEMOGLOBIN 31.3 pg (27.0-33.0); MEAN CORPUSCULAR HGB CONC 31.8 g/dl (32.0-36.5); MEAN CORPUSCULAR VOLUME 98.4 fl (80.0-96.0); MONO # 0.5 10^3/uL (0.0-0.8); MONO % 2.1 % (0.0-5.0); NEUTROPHILS # 23.8 10^3/uL (1.8-7.7); NEUTROPHILS % 96.5 % (36.0-66.0); PLATELET COUNT, AUTOMATED 286 10^3/uL (150-450); RED BLOOD COUNT 3.68 10^6/uL (4.00-5.40); RED CELL DISTRIBUTION WIDTH 13.1 % (11.5-14.5); WHITE BLOOD COUNT 24.7 10^3/uL (4.0-10.0)
[2017-11-04 05:46] LABS: LYMPH # 0.1 10^3/uL (1.5-4.5); POSITIVE DIFF POS FLAG
[2017-11-04 05:56] LABS: BEDSIDE GLUCOSE 139 MG/DL (83-110)
[2017-11-04 06:09] LABS: ALBUMIN 2.7 GM/DL (3.2-5.2); ALKALINE PHOSPHATASE 60 U/L (45-117); ALT/SGPT 41 U/L (12-78); ANION GAP 4 MEQ/L (8-16); AST/SGOT 46 U/L (7-37); BILIRUBIN,TOTAL 1.3 MG/DL (0.2-1.0); BLOOD UREA NITROGEN 47 MG/DL (7-18); CALCIUM LEVEL 8.4 MG/DL (8.8-10.2); CARBON DIOXIDE LEVEL 42 MEQ/L (21-32); CHLORIDE LEVEL 101 MEQ/L (98-107); CHOLESTEROL LEVEL 182 MG/DL (< 200); CPK CREATINE PHOSPHOKINASE 86 U/L (26-192); CREATININE FOR GFR 0.43 MG/DL (0.55-1.30); GLOMERULAR FILTRATION RATE > 60.0 (>39); GLUCOSE, FASTING 151 MG/DL (70-100); LDH LACTATE DEHYDROGENASE 745 U/L (84-246); MAGNESIUM LEVEL 2.3 MG/DL (1.8-2.4); POTASSIUM SERUM 3.5 MEQ/L (3.5-5.1); SODIUM LEVEL 147 MEQ/L (136-145); TOTAL PROTEIN 5.4 GM/DL (6.4-8.2); TRIGLYCERIDES LEVEL 291 MG/DL (<150)
[2017-11-04] MEDS: IPRATROPIUM 0.5MG/ALBUTEROL 2.5MG INH SOL UD 3ML (DUONEB)(J7620) NEB ×4 (07:18→19:34)
[2017-11-04] MEDS: CHLORHEXIDINE ORAL RINSE 0.12%/15ML 120ML BOTTLE MT ×2 (09:14→20:57)
[2017-11-04] MEDS: ASPIRIN 81 MG CHEW TABLET NG (09:15)
[2017-11-04] MEDS: CYCLOBENZAPRINE 5MG TABLET PO ×2 (09:15→20:57)
[2017-11-04] MEDS: ENOXAPARIN 30 MG/0.3 ML SYR (J1650) SC (09:15)
[2017-11-04] MEDS: PANTOPRAZOLE 40MG INJ (PROTONIX) (C9113) IV (09:15)
[2017-11-04] MEDS: METOCLOPRAMIDE 5 MG TAB NG ×2 (09:15→20:57)
[2017-11-04 12:07] LABS: BEDSIDE GLUCOSE 141 MG/DL (83-110)
[2017-11-04] MEDS: MULTIVITAMIN -ADULT INJECTION 10 ML, CR/CU/SE/MN/ZN INJ 1 ML in AMINO AC/ELECTROLYTE/DE... IV (17:24)
[2017-11-04 17:33] LABS: BEDSIDE GLUCOSE 152 MG/DL (83-110)
[2017-11-04] MEDS: ATORVASTATIN 20 MG TAB NG (20:57)
[2017-11-05] MEDS: HumaLOG INSULIN (NovoLOG) PER UNIT SC ×4 (00:31→17:11)
[2017-11-05 00:35] LABS: BEDSIDE GLUCOSE 256 MG/DL (83-110)
[2017-11-05] MEDS: MEROPENEM INJ 1 GM in APPROPRIATE DILUENT 1 EA IV ×3 (01:59→17:11)
[2017-11-05] MEDS: MORPHINE 2 MG/ML 1ML SYRINGE (J2270) IV ×2 (02:20→16:28)
[2017-11-05] MEDS: SODIUM CHLORIDE 0.9% INJ 10 ML SYR IV ×3 (05:32→21:22)
[2017-11-05] MEDS: methylPREDNISolone INJ 125 MG/2 ML VIAL (J2930) IV ×2 (05:32→17:10)
[2017-11-05 06:30] LABS: ALBUMIN 2.7 GM/DL (3.2-5.2); ALKALINE PHOSPHATASE 57 U/L (45-117); ALT/SGPT 44 U/L (12-78); ANION GAP 3 MEQ/L (8-16); AST/SGOT 37 U/L (7-37); BLOOD UREA NITROGEN 63 MG/DL (7-18); CALCIUM LEVEL 8.3 MG/DL (8.8-10.2); CARBON DIOXIDE LEVEL 42 MEQ/L (21-32); CHLORIDE LEVEL 103 MEQ/L (98-107); CHOLESTEROL LEVEL 173 MG/DL (< 200); CPK CREATINE PHOSPHOKINASE 100 U/L (26-192); CREATININE FOR GFR 0.49 MG/DL (0.55-1.30); GLOMERULAR FILTRATION RATE > 60.0 (>39); GLUCOSE, FASTING 212 MG/DL (70-100); LDH LACTATE DEHYDROGENASE 744 U/L (84-246); PHOSPHORUS LEVEL 2.4 MG/DL (2.5-4.9); POTASSIUM SERUM 4.2 MEQ/L (3.5-5.1); SODIUM LEVEL 148 MEQ/L (136-145); TOTAL PROTEIN 5.4 GM/DL (6.4-8.2); TRIGLYCERIDES LEVEL 274 MG/DL (<150)
[2017-11-05 07:39] LABS: BASO % 0.1 % (0.0-1.0); HEMATOCRIT 35.9 % (36.0-47.0); HEMOGLOBIN 11.2 g/dl (12.0-16.0); IMMATURE GRANULOCYTE # 0.4 10^3/uL (0-0); IMMATURE GRANULOCYTE % 1.2 % (0-0); LYMPH % 0.2 % (24.0-44.0); MEAN CORPUSCULAR HEMOGLOBIN 31.4 pg (27.0-33.0); MEAN CORPUSCULAR HGB CONC 31.2 g/dl (32.0-36.5); MEAN CORPUSCULAR VOLUME 100.6 fl (80.0-96.0); MONO # 0.7 10^3/uL (0.0-0.8); MONO % 2.2 % (0.0-5.0); NEUTROPHILS % 96.3 % (36.0-66.0); PLATELET COUNT, AUTOMATED 265 10^3/uL (150-450); RED BLOOD COUNT 3.57 10^6/uL (4.00-5.40); RED CELL DISTRIBUTION WIDTH 12.9 % (11.5-14.5); WHITE BLOOD COUNT 29.9 10^3/uL (4.0-10.0)
[2017-11-05] MEDS: IPRATROPIUM 0.5MG/ALBUTEROL 2.5MG INH SOL UD 3ML (DUONEB)(J7620) NEB ×4 (07:57→19:34)
[2017-11-05 08:16] LABS: ADD MANUAL DIFFER NO; DIFF SLIDE NUMBER 125; LYMPH # 0.1 10^3/uL (1.5-4.5); NEUTROPHILS # 28.8 10^3/uL (1.8-7.7); POSITIVE DIFF POS FLAG
[2017-11-05] MEDS: MOM 30ML SUSPENSION UDC PO (10:50)
[2017-11-05] MEDS: ENOXAPARIN 30 MG/0.3 ML SYR (J1650) SC (10:50)
[2017-11-05] MEDS: PANTOPRAZOLE 40MG INJ (PROTONIX) (C9113) IV (10:50)
[2017-11-05] MEDS: METOCLOPRAMIDE 5 MG TAB NG ×2 (10:51→21:21)
[2017-11-05] MEDS: CYCLOBENZAPRINE 5MG TABLET PO ×2 (10:51→21:21)
[2017-11-05] MEDS: ASPIRIN 81 MG CHEW TABLET NG (10:54)
[2017-11-05] MEDS: CHLORHEXIDINE ORAL RINSE 0.12%/15ML 120ML BOTTLE MT ×2 (10:54→21:21)
[2017-11-05 11:43] LABS: BEDSIDE GLUCOSE 176 MG/DL (83-110)
[2017-11-05 17:12] LABS: BEDSIDE GLUCOSE 245 MG/DL (83-110)
[2017-11-05] MEDS: ELECTROLYTE IV (17:13)
[2017-11-05] MEDS: AMINO AC IV (17:13)
[2017-11-05] MEDS: CALC IV (17:13)
[2017-11-05] MEDS: DEX IV (17:13)
[2017-11-05] MEDS: INSULIN HUMAN REGULAR IV (17:13)
[2017-11-05] MEDS: ATORVASTATIN 20 MG TAB NG (21:21)
[2017-11-06] MEDS: MEROPENEM INJ 1 GM in APPROPRIATE DILUENT 1 EA IV ×3 (01:01→17:36)
[2017-11-06] MEDS: HumaLOG INSULIN (NovoLOG) PER UNIT SC ×4 (01:01→18:33)
[2017-11-06 01:32] LABS: BEDSIDE GLUCOSE 229 MG/DL (83-110)
[2017-11-06] MEDS: SODIUM CHLORIDE 0.9% INJ 10 ML SYR IV ×3 (05:06→21:08)
[2017-11-06] MEDS: methylPREDNISolone INJ 125 MG/2 ML VIAL (J2930) IV ×2 (05:07→17:37)
[2017-11-06 05:28] LABS: BASO % 0.1 % (0.0-1.0); HEMATOCRIT 33.8 % (36.0-47.0); HEMOGLOBIN 10.4 g/dl (12.0-16.0); IMMATURE GRANULOCYTE # 0.3 10^3/uL (0-0); LYMPH % 0.3 % (24.0-44.0); MEAN CORPUSCULAR HEMOGLOBIN 31.9 pg (27.0-33.0); MEAN CORPUSCULAR HGB CONC 30.8 g/dl (32.0-36.5); MEAN CORPUSCULAR VOLUME 103.7 fl (80.0-96.0); MONO # 0.6 10^3/uL (0.0-0.8); MONO % 2.1 % (0.0-5.0); NEUTROPHILS % 96.5 % (36.0-66.0); PLATELET COUNT, AUTOMATED 188 10^3/uL (150-450); RED BLOOD COUNT 3.26 10^6/uL (4.00-5.40); RED CELL DISTRIBUTION WIDTH 12.9 % (11.5-14.5); WHITE BLOOD COUNT 27.6 10^3/uL (4.0-10.0)
[2017-11-06 05:39] LABS: LYMPH # 0.1 10^3/uL (1.5-4.5); NEUTROPHILS # 26.7 10^3/uL (1.8-7.7); POSITIVE DIFF POS FLAG
[2017-11-06 05:51] LABS: ALBUMIN 2.6 GM/DL (3.2-5.2); ALBUMIN/GLOBULIN RATIO 1.04 (1.00-1.93); ALKALINE PHOSPHATASE 51 U/L (45-117); ALT/SGPT 42 U/L (12-78); ANION GAP 0 MEQ/L (8-16); AST/SGOT 39 U/L (7-37); BILIRUBIN,TOTAL 0.7 MG/DL (0.2-1.0); BLOOD UREA NITROGEN 65 MG/DL (7-18); CALCIUM LEVEL 8.3 MG/DL (8.8-10.2); CARBON DIOXIDE LEVEL 45 MEQ/L (21-32); CHLORIDE LEVEL 106 MEQ/L (98-107); CHOLESTEROL LEVEL 161 MG/DL (< 200); CPK CREATINE PHOSPHOKINASE 125 U/L (26-192); CREATININE FOR GFR 0.38 MG/DL (0.55-1.30); GLOMERULAR FILTRATION RATE > 60.0 (>39); GLUCOSE, FASTING 177 MG/DL (70-100); LDH LACTATE DEHYDROGENASE 702 U/L (84-246); PHOSPHORUS LEVEL 2.5 MG/DL (2.5-4.9); POTASSIUM SERUM 4.7 MEQ/L (3.5-5.1); SODIUM LEVEL 151 MEQ/L (136-145); TOTAL PROTEIN 5.1 GM/DL (6.4-8.2); TRIGLYCERIDES LEVEL 199 MG/DL (<150)
[2017-11-06] MEDS: IPRATROPIUM 0.5MG/ALBUTEROL 2.5MG INH SOL UD 3ML (DUONEB)(J7620) NEB ×4 (07:18→20:01)
[2017-11-06 08:52] LABS: ABG BASE EXCESS 12.7 (-2.0-2.0); ABG HCO3 42.9 MEQ/L (22.0-26.0); ABG STANDARD HCO3 36.3 MEQ/L (22.0-26.0); ABG TOTAL CO2 45.8 MEQ/L (23.0-31.0); ABG pH (ARTERIAL) 7.287 UNITS (7.350-7.450)
[2017-11-06] MEDS: METOCLOPRAMIDE 5 MG TAB NG ×2 (09:34→21:00)
[2017-11-06] MEDS: CYCLOBENZAPRINE 5MG TABLET PO ×2 (09:34→21:00)
[2017-11-06] MEDS: ASPIRIN 81 MG CHEW TABLET NG (09:34)
[2017-11-06] MEDS: ENOXAPARIN 30 MG/0.3 ML SYR (J1650) SC (10:18)
[2017-11-06] MEDS: PANTOPRAZOLE 40MG INJ (PROTONIX) (C9113) IV (10:18)
[2017-11-06 10:43] LABS: ABG BASE EXCESS 14.8 (-2.0-2.0); ABG HCO3 43.6 MEQ/L (22.0-26.0); ABG O2 SATURATION 93.6 % (95.0-99.0); ABG STANDARD HCO3 38.5 MEQ/L (22.0-26.0); ABG pH (ARTERIAL) 7.354 UNITS (7.350-7.450)
[2017-11-06] MEDS: D5W 1,000 ML IV (11:01)
[2017-11-06 13:09] LABS: BEDSIDE GLUCOSE 199 MG/DL (83-110)
[2017-11-06] MEDS: [UNRECOGNIZED DRUG - MIXTURE] IV (17:42)
[2017-11-06 17:50] LABS: BEDSIDE GLUCOSE 209 MG/DL (83-110)
[2017-11-06] MEDS ORDERED: HumaLOG INSULIN (NovoLOG) PER UNIT SC (18:00)
[2017-11-06] MEDS: ATORVASTATIN 20 MG TAB NG (21:00)
[2017-11-07 00:09] LABS: BEDSIDE GLUCOSE 199 MG/DL (83-110)
[2017-11-07] MEDS: MEROPENEM INJ 1 GM in APPROPRIATE DILUENT 1 EA IV ×3 (01:06→17:34)
[2017-11-07] MEDS: HumaLOG INSULIN (NovoLOG) PER UNIT SC ×5 (01:06→17:33)
[2017-11-07] MEDS: methylPREDNISolone INJ 125 MG/2 ML VIAL (J2930) IV ×2 (05:48→17:34)
[2017-11-07] MEDS: SODIUM CHLORIDE 0.9% INJ 10 ML SYR IV ×3 (05:48→22:52)
[2017-11-07 05:55] LABS: BEDSIDE GLUCOSE 196 MG/DL (83-110)
[2017-11-07 06:09] LABS: BASO % 0.1 % (0.0-1.0); HEMOGLOBIN 10.8 g/dl (12.0-16.0); IMMATURE GRANULOCYTE % 1.2 % (0-3.0); LYMPH % 0.3 % (24.0-44.0); MEAN CORPUSCULAR HEMOGLOBIN 31.7 pg (27.0-33.0); MEAN CORPUSCULAR VOLUME 105.6 fl (80.0-96.0); MONO # 0.6 10^3/uL (0.0-0.8); MONO % 1.8 % (0.0-5.0); NEUTROPHILS % 96.6 % (36.0-66.0); PLATELET COUNT, AUTOMATED 160 10^3/uL (150-450); RED BLOOD COUNT 3.41 10^6/uL (4.00-5.40); RED CELL DISTRIBUTION WIDTH 12.6 % (11.5-14.5)
[2017-11-07 06:18] LABS: LYMPH # 0.1 10^3/uL (1.5-4.5); NEUTROPHILS # 29.7 10^3/uL (1.8-7.7); POS COUNT POS FLAG; POSITIVE DIFF POS FLAG; WHITE BLOOD COUNT 30.8 10^3/uL (4.0-10.0)
[2017-11-07 06:32] LABS: ALBUMIN 2.6 GM/DL (3.2-5.2); ALBUMIN/GLOBULIN RATIO 0.96 (1.00-1.93); ALKALINE PHOSPHATASE 59 U/L (45-117); ALT/SGPT 48 U/L (12-78); ANION GAP 2 MEQ/L (8-16); AST/SGOT 43 U/L (7-37); BILIRUBIN,TOTAL 0.7 MG/DL (0.2-1.0); BLOOD UREA NITROGEN 61 MG/DL (7-18); CALCIUM LEVEL 8.3 MG/DL (8.8-10.2); CARBON DIOXIDE LEVEL 44 MEQ/L (21-32); CHLORIDE LEVEL 102 MEQ/L (98-107); CHOLESTEROL LEVEL 172 MG/DL (< 200); CPK CREATINE PHOSPHOKINASE 140 U/L (26-192); GLOMERULAR FILTRATION RATE > 60.0 (>39); GLUCOSE, FASTING 222 MG/DL (70-100); LDH LACTATE DEHYDROGENASE 704 U/L (84-246); PHOSPHORUS LEVEL 2.5 MG/DL (2.5-4.9); SODIUM LEVEL 148 MEQ/L (136-145); TOTAL PROTEIN 5.3 GM/DL (6.4-8.2); TRIGLYCERIDES LEVEL 222 MG/DL (<150)
[2017-11-07 06:34] LABS: POTASSIUM SERUM 5.3 MEQ/L (3.5-5.1)
[2017-11-07] MEDS: IPRATROPIUM 0.5MG/ALBUTEROL 2.5MG INH SOL UD 3ML (DUONEB)(J7620) NEB ×4 (07:28→19:24)
[2017-11-07] MEDS: D5W 1,000 ML IV (07:43)
[2017-11-07 07:45] LABS: REASON FOR REVIEW WBC/LEUKEMIA/BLAST; SLIDE REVIEW Report; SOURCE PERIPHERAL SMEAR
[2017-11-07] MEDS: ASPIRIN 81 MG CHEW TABLET NG (09:00)
[2017-11-07] MEDS: FUROSEMIDE 40 MG/4 ML VIAL (J1940) IV (09:26)
[2017-11-07] MEDS: PANTOPRAZOLE 40MG INJ (PROTONIX) (C9113) IV (09:27)
[2017-11-07] MEDS: ENOXAPARIN 30 MG/0.3 ML SYR (J1650) SC (09:27)
[2017-11-07 11:38] LABS: BEDSIDE GLUCOSE 228 MG/DL (83-110)
[2017-11-07 17:23] LABS: BEDSIDE GLUCOSE 167 MG/DL (83-110)
[2017-11-07] MEDS: ELECTROLYTE IV (17:37)
[2017-11-07] MEDS: AMINO AC IV (17:37)
[2017-11-07] MEDS: INSULIN HUMAN REGULAR IV (17:37)
[2017-11-07] MEDS: DEX IV (17:37)
[2017-11-07] MEDS: CALC IV (17:37)
[2017-11-07] MEDS: diltiaZEM 125 MG in NS 100 ML IV (19:00)
[2017-11-07 20:38] LABS: ABG BASE EXCESS 12.8 (-2.0-2.0); ABG HCO3 46.6 MEQ/L (22.0-26.0); ABG O2 SATURATION 97.3 % (95.0-99.0); ABG STANDARD HCO3 36.6 MEQ/L (22.0-26.0); ABG TOTAL CO2 50.8 MEQ/L (23.0-31.0)
[2017-11-07 20:41] LABS: ABG PARTIAL PRESSURE CO2 137.7 mmHg (35.0-45.0); ABG pH (ARTERIAL) 7.147 UNITS (7.350-7.450)
[2017-11-07] MEDS: ATORVASTATIN 20 MG TAB NG (21:00)
[2017-11-07 23:04] LABS: ABG BASE EXCESS 14.9 (-2.0-2.0); ABG HCO3 45.2 MEQ/L (22.0-26.0); ABG O2 SATURATION 97.2 % (95.0-99.0); ABG PARTIAL PRESSURE O2 94.1 mmHg (75.0-100.0); ABG STANDARD HCO3 38.8 MEQ/L (22.0-26.0); ABG TOTAL CO2 48.1 MEQ/L (23.0-31.0); ABG pH (ARTERIAL) 7.296 UNITS (7.350-7.450)
[2017-11-07 23:06] LABS: ABG PARTIAL PRESSURE CO2 94.9 mmHg (35.0-45.0)
[2017-11-08 00:13] LABS: BEDSIDE GLUCOSE 214 MG/DL (83-110)
[2017-11-08] MEDS: MEROPENEM INJ 1 GM in APPROPRIATE DILUENT 1 EA IV ×2 (02:47→11:09)
[2017-11-08 05:52] LABS: ABG HCO3 46.8 MEQ/L (22.0-26.0); ABG O2 SATURATION 96.1 % (95.0-99.0); ABG PARTIAL PRESSURE O2 83.8 mmHg (75.0-100.0); ABG STANDARD HCO3 40.9 MEQ/L (22.0-26.0); ABG TOTAL CO2 49.6 MEQ/L (23.0-31.0); ABG pH (ARTERIAL) 7.328 UNITS (7.350-7.450)
[2017-11-08 05:54] LABS: ABG PARTIAL PRESSURE CO2 91.2 mmHg (35.0-45.0)
[2017-11-08] MEDS: SODIUM CHLORIDE 0.9% INJ 10 ML SYR IV (06:00)
[2017-11-08 06:05] LABS: BASO % 0.1 % (0.0-1.0); IMMATURE GRANULOCYTE % 1.2 % (0-3.0); LYMPH % 0.5 % (24.0-44.0); MEAN CORPUSCULAR HEMOGLOBIN 31.4 pg (27.0-33.0); MEAN CORPUSCULAR HGB CONC 30.6 g/dl (32.0-36.5); MEAN CORPUSCULAR VOLUME 102.9 fl (80.0-96.0); MONO # 0.6 10^3/uL (0.0-0.8); NEUTROPHILS % 96.2 % (36.0-66.0); PLATELET COUNT, AUTOMATED 120 10^3/uL (150-450); RED CELL DISTRIBUTION WIDTH 12.5 % (11.5-14.5); WHITE BLOOD COUNT 28.4 10^3/uL (4.0-10.0)
[2017-11-08 06:08] LABS: BEDSIDE GLUCOSE 161 MG/DL (83-110)
[2017-11-08 06:30] LABS: ALBUMIN 2.6 GM/DL (3.2-5.2); ALBUMIN/GLOBULIN RATIO 0.87 (1.00-1.93); ALKALINE PHOSPHATASE 64 U/L (45-117); ALT/SGPT 50 U/L (12-78); ANION GAP 0 MEQ/L (8-16); AST/SGOT 47 U/L (7-37); BILIRUBIN,TOTAL 0.7 MG/DL (0.2-1.0); BLOOD UREA NITROGEN 65 MG/DL (7-18); CALCIUM LEVEL 8.8 MG/DL (8.8-10.2); CARBON DIOXIDE LEVEL 44 MEQ/L (21-32); CHLORIDE LEVEL 101 MEQ/L (98-107); CHOLESTEROL LEVEL 163 MG/DL (< 200); CPK CREATINE PHOSPHOKINASE 153 U/L (26-192); CREATININE FOR GFR 0.38 MG/DL (0.55-1.30); GLOMERULAR FILTRATION RATE > 60.0 (>39); GLUCOSE, FASTING 169 MG/DL (70-100); LDH LACTATE DEHYDROGENASE 617 U/L (84-246); PHOSPHORUS LEVEL 2.3 MG/DL (2.5-4.9); POTASSIUM SERUM 4.9 MEQ/L (3.5-5.1); SODIUM LEVEL 145 MEQ/L (136-145); TOTAL PROTEIN 5.6 GM/DL (6.4-8.2); TRIGLYCERIDES LEVEL 248 MG/DL (<150)
[2017-11-08] MEDS: HumaLOG INSULIN (NovoLOG) PER UNIT SC ×2 (06:35)
[2017-11-08] MEDS: methylPREDNISolone INJ 125 MG/2 ML VIAL (J2930) IV (06:35)
[2017-11-08 06:52] LABS: ADD MANUAL DIFFER NO; DIFF SLIDE NUMBER 45; LYMPH # 0.1 10^3/uL (1.5-4.5); NEUTROPHILS # 27.3 10^3/uL (1.8-7.7); POSITIVE DIFF POS FLAG
[2017-11-08] MEDS: IPRATROPIUM 0.5MG/ALBUTEROL 2.5MG INH SOL UD 3ML (DUONEB)(J7620) NEB ×2 (08:18→11:15)
[2017-11-08] MEDS ORDERED: SENNA SYRUP 15 ML UDC NG (09:00)
[2017-11-08] MEDS: FUROSEMIDE 40 MG/4 ML VIAL (J1940) IV (09:34)
[2017-11-08] MEDS: PANTOPRAZOLE 40MG INJ (PROTONIX) (C9113) IV (09:34)
[2017-11-08] MEDS: ENOXAPARIN 30 MG/0.3 ML SYR (J1650) SC (09:34)
[2017-11-08] MEDS: ASPIRIN 81 MG CHEW TABLET NG (11:09)
[2017-11-08] MEDS: BISACODYL 10 MG SUPP PR (11:09)
[2017-11-08] MEDS ORDERED: K-PHOS ORIGINAL (POT.ACID PHOSPHATE) 500MG TAB PO (12:00)
[2017-11-08] MEDS ORDERED: MORPHINE 4 MG/ML 1ML VIAL (J2270) As Ordered (12:30)
[2017-11-08 12:36] LABS: C REACTIVE PROTEIN QUANTITATIV 0.62 MG/DL (0.00-0.30)
[2017-11-08] MEDS: MORPHINE 4 MG/ML 1ML VIAL (J2270) IV (12:51)
[2017-11-08] MEDS: ATROPINE SULF 1MG/10ML SYRINGE (J0461) IV (12:52)
[2017-11-08] MEDS ORDERED: LORazepam 2 MG/ML VIAL (J2060) As Ordered (12:56)
[2017-11-08] MEDS ORDERED: MORPHINE 4 MG/ML 1ML VIAL (J2270) IV (13:00)
[2017-11-08] MEDS ORDERED: BISACODYL 10 MG SUPP PR (13:00)
[2017-11-08] MEDS ORDERED: FLEET ENEMA PR (13:00)
[2017-11-08] MEDS ORDERED: ATROPINE SULFATE 1% OP SOLN 2 ML BTL SL (13:00)
[2017-11-08] MEDS ORDERED: ACETAMINOPHEN 650 MG SUPP PR (13:00)
[2017-11-08] MEDS ORDERED: SCOPOLAMINE 1MG TRANSDERMAL PATCH TOP (13:00)
[2017-11-08] MEDS ORDERED: HYOSCYAMINE SULFATE 0.125 MG SUBL TABLET PO (13:00)
[2017-11-08] MEDS ORDERED: ONDANSETRON 4MG/2ML VIAL (J2405) IV (13:00)
[2017-11-08] MEDS: LORazepam 2 MG/ML VIAL (J2060) IV (13:01)
== END 2017-11-08 13:09 | disposition expired | DRG 166 ==
LOC: M ED 15:26 → M ED INP 17:15 → M ICU 18:18
PROC: 5A1955Z Respiratory Ventilation, Greater than 96 Consecutive Hours (ICD-10-PCS; 2017-10-24)
PROC: 02HV33Z Insertion of Infusion Device into Superior Vena Cava, Percutaneous Approach (ICD-10-PCS; 2017-10-24)
PROC: 0B9M8ZX Drainage of Bilateral Lungs, Via Natural or Artificial Opening Endoscopic, Diagnostic (ICD-10-PCS; principal; 2017-10-28)
PROC: 0B9M8ZX Drainage of Bilateral Lungs, Via Natural or Artificial Opening Endoscopic, Diagnostic (ICD-10-PCS; 2017-10-29)
DX: J96.21 Acute and chronic respiratory failure with hypoxia (principal); J12.1 Respiratory syncytial virus pneumonia; E43 Unspecified severe protein-calorie malnutrition; I24.9 Acute ischemic heart disease, unspecified; G62.81 Critical illness polyneuropathy; E87.0 Hyperosmolality and hypernatremia; L03.113 Cellulitis of right upper limb; R57.9 Shock, unspecified; I47.1 Supraventricular tachycardia; I51.81 Takotsubo syndrome; I46.8 Cardiac arrest due to other underlying condition; J96.22 Acute and chronic respiratory failure with hypercapnia; Z79.52 Long term (current) use of systemic steroids; K52.9 Noninfective gastroenteritis and colitis, unspecified; J43.9 Emphysema, unspecified; Z51.5 Encounter for palliative care; M81.0 Age-related osteoporosis without current pathological fracture; Z87.891 Personal history of nicotine dependence; Z88.0 Allergy status to penicillin; Z88.5 Allergy status to narcotic agent; Z88.2 Allergy status to sulfonamides; Z88.8 Allergy status to other drugs, medicaments and biological substances; D72.829 Elevated white blood cell count, unspecified; E83.42 Hypomagnesemia; E83.39 Other disorders of phosphorus metabolism; D64.9 Anemia, unspecified; Z99.81 Dependence on supplemental oxygen; Z79.82 Long term (current) use of aspirin; E87.6 Hypokalemia